=== PATIENT | male | born 1960 | race Caucasian/White ===

== ENCOUNTER → 2018-02-27 07:32 | Outpatient (CLI) | payer OTHER, SELFPAY ==
[2018-02-27 08:31] LABS: Add Manual Diff / Slide Review NO; Basophils Percent Auto 1.8 % (0-2); Eosinophils Percent Auto 13.1 % (2-4); Hematocrit 43.8 % (41-53); Hemoglobin 15.1 g/dL (13.5-17.5); Lymphocytes Percent Auto 30.2 % (25-40); Mean Corpuscular HGB Conc 34.5 % (30-36); Mean Corpuscular Hemoglobin 31.9 PG (26-34); Mean Corpuscular Volume 92.4 fL (80-100); Monocytes Percent Auto 11.3 % (3-14); Neutrophils Absolute Auto 2800 /uL (3000-5900); Neutrophils Percent Auto 43.6 % (50-75); Platelet Count 278 X10^3/uL (150-400); Red Blood Cell Count 4.74 X10^6/uL (4.5-5.9); White Blood Cell Count 6.4 X10^3/uL (4.5-11.0)
[2018-02-27 09:00] LABS: Alanine Aminotransferase 32 IU/L (21-72); Albumin 4.3 g/dL (3.5-5.0); Albumin Globulin Ratio 1.4 (1.0-2.8); Alkaline Phosphatase 52 U/L (38-126); Aspartate Aminotransferase 28 IU/L (17-59); BUN Creatinine Ratio 27.8 (6-22); Bilirubin Total 0.7 mg/dL (0.2-1.3); Blood Urea Nitrogen 25 mg/dL (9-20); Calcium 9.1 mg/dL (8.4-10.2); Carbon Dioxide 27 mmol/L (22-32); Chloride 103 mmol/L (98-107); Cholesterol 189 mg/dL (140-199); Estimated Glomerular Filt Rate > 60.0 mL/min (>60); Glucose 93 mg/dL (70-100); HDL Cholesterol 87 mg/dL (40-60); HEMOLYSIS < 15 (0-50); LDL Cholesterol Calculated 87 mg/dL (<100); Potassium 3.6 mmol/L (3.4-5.1); Sodium 142 mmol/L (137-145); Total Protein 7.3 g/dL (6.3-8.2); Triglycerides 77 mg/dL (35-150)
[2018-02-27 09:23] LABS: Prostate Specific Antigen Scrn 1.58 ng/mL (0.1-4.0)
== END ==
PROVIDERS: PCP Family Medicine; Visit Provider Nurse Practitioner Family
DX: E78.5 Hyperlipidemia, unspecified (principal); Z00.00 Encounter for general adult medical examination without abnormal findings
CPT/HCPCS: 36415; 80053; 80061; 85025; G0103

== ENCOUNTER → 2018-04-22 08:18 | Outpatient (CLI) | payer OTHER, SELFPAY ==
[2018-04-22 09:54] LABS: Add Manual Diff / Slide Review NO; Basophils Percent Auto 1.3 % (0-2); Eosinophils Percent Auto 11.6 % (2-4); Hematocrit 45.4 % (41-53); Hemoglobin 15.7 g/dL (13.5-17.5); Lymphocytes Percent Auto 25.1 % (25-40); Mean Corpuscular HGB Conc 34.5 % (30-36); Mean Corpuscular Hemoglobin 31.6 PG (26-34); Mean Corpuscular Volume 91.6 fL (80-100); Neutrophils Absolute Auto 3500 /uL (3000-5900); Platelet Count 295 X10^3/uL (150-400); Red Blood Cell Count 4.96 X10^6/uL (4.5-5.9); Red Cell Distribution Width 12.6 % (11.6-14.8); White Blood Cell Count 6.8 X10^3/uL (4.5-11.0)
[2018-04-22 10:21] LABS: Blood Urea Nitrogen 24 mg/dL (9-20); Calcium 9.5 mg/dL (8.4-10.2); Carbon Dioxide 27 mmol/L (22-32); Chloride 101 mmol/L (98-107); Estimated Glomerular Filt Rate > 60.0 mL/min (>60); Glucose 140 mg/dL (70-100); HEMOLYSIS < 15 (0-50); Sodium 139 mmol/L (137-145)
== END ==
PROVIDERS: PCP Family Medicine; Visit Provider Orthopaedic Surgery Orthopaedic Surgery of the Spine
DX: Z01.818 Encounter for other preprocedural examination (principal); M48.062 Spinal stenosis, lumbar region with neurogenic claudication
CPT/HCPCS: 36415; 80048; 85025; 93005; 93010

== ENCOUNTER 2018-04-25 16:42 | Emergency (ER) | payer OTHER, SELFPAY ==
[2018-04-25] VITALS (14 sets, daily range): BP systolic 124–190; BP diastolic 76–108; PULSE 51–92; RESP 13–20; TEMP 37.4; O2SAT 96–100
--- NOTE | 2018-04-25 17:25 | DI.RAD.S_ITS ---
PROCEDURE: XR CHEST 1V INDICATIONS: chest pain TECHNIQUE: One view of the chest was acquired. COMPARISON: None. FINDINGS: Surgical changes and devices: None. Lungs and pleura: No pleural effusions or pneumothorax. Lungs are clear. Mediastinum: Mildly tortuous thoracic aorta is seen. Cardiac silhouette is enlarged. Bones and chest wall: No suspicious bony lesions. Overlying soft tissues appear unremarkable. IMPRESSION: No acute cardiopulmonary pathology. Dictated by: Ajay Luque M.D. on 04/25/2018 at 17:52 Approved by: Ajay Luque M.D. on 04/25/2018 at 17:52
[2018-04-25] MEDS: NITROGLYCERIN 0.4 MG SL TAB SL ×3 (18:00→18:24)
[2018-04-25 18:04] LABS: Add Manual Diff / Slide Review NO; Eosinophils Percent Auto 5.8 % (2-4); Hematocrit 43.6 % (41-53); Hemoglobin 15.1 g/dL (13.5-17.5); Lymphocytes Percent Auto 27.9 % (25-40); Mean Corpuscular HGB Conc 34.6 % (30-36); Mean Corpuscular Hemoglobin 31.9 PG (26-34); Mean Corpuscular Volume 92.3 fL (80-100); Monocytes Percent Auto 10.4 % (3-14); Neutrophils Absolute Auto 4400 /uL (3000-5900); Neutrophils Percent Auto 54.9 % (50-75); Platelet Count 273 X10^3/uL (150-400); Red Blood Cell Count 4.72 X10^6/uL (4.5-5.9); Red Cell Distribution Width 12.4 % (11.6-14.8)
[2018-04-25] MEDS: ASPIRIN 81 MG TAB 324 MG PO (18:08)
[2018-04-25 18:09] LABS: INR 1.1 (0.9-1.3); Prothrombin Time 11.5 SECONDS (10.1-12.7)
[2018-04-25 18:12] LABS: PTT Partial Thromboplastin Tim 29 SECONDS (26.4-36.2)
[2018-04-25 18:15] LABS: Alanine Aminotransferase 29 IU/L (21-72); Albumin 4.1 g/dL (3.5-5.0); Albumin Globulin Ratio 1.5 (1.0-2.8); Alkaline Phosphatase 52 U/L (38-126); Aspartate Aminotransferase 25 IU/L (17-59); Bilirubin Total 0.3 mg/dL (0.2-1.3); Blood Urea Nitrogen 27 mg/dL (9-20); Calcium 9.3 mg/dL (8.4-10.2); Carbon Dioxide 28 mmol/L (22-32); Chloride 106 mmol/L (98-107); Creatine Kinase 72 U/L (55-170); Estimated Glomerular Filt Rate > 60.0 mL/min (>60); Globulin 2.7 g/dL (1.7-4.1); Glucose 83 mg/dL (70-100); HEMOLYSIS < 15 (0-50); Lipase 79 U/L (23-300); Potassium 3.6 mmol/L (3.4-5.1); Sodium 141 mmol/L (137-145); Total Protein 6.8 g/dL (6.3-8.2)
[2018-04-25 18:26] LABS: Troponin I 0.017 ng/mL (0.01-0.034)
[2018-04-25] MEDS: ACETAMINOPHEN 325 MG TABLET 975 MG PO (18:38)
[2018-04-25 21:11] LABS: Troponin I 0.019 ng/mL (0.01-0.034)
--- NOTE | 2018-04-26 04:31 | ED_ITS ---
HPI - Chest Pain General Chief Complaint: Chest Pain Stated Complaint: CHEST PAIN Time Seen by Provider: 04/25/18 17:29 Source: patient and family Mode of arrival: ambulatory Limitations: no limitations History of Present Illness HPI narrative: 57-year-old male with history of essential hypertension on multiple medications presents to the emergency department with his and a chief complaint of chest pressure which has been present since this morning. He denies provocation, palliation or radiation of the discomfort. He denies associated symptoms such as dizziness, weakness, lightheadedness or shortness of breath. He denies nausea, vomiting or diaphoresis. Upon arrival his blood pressure was quite elevated and just yesterday he had alterations in his medications by his primary care provider. He has an upcoming elective surgery on his back went to his primary care office for medical clearance and it was noted he had a heart rate in the 40s and EKG suggesting first-degree block. He was taken off metoprolol placed on the new medication regimen including chlorthalidone, amlodipine, and lisinopril. MD complaint: chest pain Onset (ago): hour(s) Duration: intermittent Pain location: left chest Severity: mild Quality: tightness and sharp Pain radiation: none Relieving factors: nothing Exacerbating factors: nothing Treatments prior to arrival chest pain: none Related Data Home Medications Medication Instructions Recorded Confirmed CA PANTOTHENATE/FOLIC ACID/VIT 1 tab PO QDAY #0 03/11/12 04/25/18 (MULTIVITAMIN) CALCIUM CARBONATE (Calcium 500 mg PO #0 03/11/12 04/24/18 Carbonate) CHOLECALCIFEROL (VITAMIN D3) 400 iu PO #0 03/11/12 04/24/18 (Vitamin D3) CYANOCOBALAMIN (VITAMIN B-12) 1 tab PO #0 03/11/12 04/24/18 (Vitamin B-12) Fish Oil (#FISH OIL) 1 iu PO #0 03/11/12 04/24/18 Homeopathic Substance (#ECHINACEA 1 tab PO #0 03/11/12 04/24/18 ANG) acyclovir [Zovirax] 400 mg PO TID PRN 04/25/18 04/25/18 cetirizine 10 mg PO QDAY PRN 04/25/18 04/25/18 Previous Rx's Medication Instructions Recorded celecoxib 200 mg capsule 200 mg PO QDAY #90 cap 03/04/18 ketoconazole 2 % topical cream 1 applictn TOP BID #30 gram 03/04/18 lisinopril 20 mg tablet 20 mg PO BID #180 tab 03/04/18 amlodipine 10 mg tablet 10 mg PO DAILY #30 tab 04/24/18 chlorthalidone 25 mg tablet 25 mg PO DAILY #30 tab 04/24/18 Allergies Allergy/AdvReac Type Severity Reaction Status Date / Time gabapentin AdvReac Severe States Verified 04/24/18 15:00 made him homicidal Review of Systems Review of Systems All systems reviewed & are unremarkable except as noted in HPI and below Constitutional Denies chills, Denies fever(s), Denies lethargy and Denies weakness Eyes Denies change in vision, Denies eye discharge, Denies irritation and Denies loss of vision ENT Ears, Nose, Mouth, and Throat: Denies change in voice, Denies neck pain and Denies sore throat Cardiovascular Reports chest pain, Denies irregular heart rhythm, Denies lightheadedness, Denies palpitations, Denies dyspnea, Denies dyspnea on exertion and Denies orthopnea Respiratory Denies cough, Denies dyspnea, Denies dyspnea on exertion and Denies wheezing Gastrointestinal Gastrointestinal: Denies abdominal pain, Denies change in bowel habits, Denies diarrhea, Denies nausea and Denies vomiting Genitourinary Denies hematuria, Denies flank pain, Denies urinary incontinence and Denies urinary urgency Musculoskeletal Denies neck pain Integumentary/Breasts Denies pruritus, Denies erythema, Denies rash and Denies wounds Neurologic Denies confusion, Denies loss of vision and Denies weakness Psychiatric Denies anxiety, Denies confusion, Denies depression, Denies homicidal ideation and Denies suicidal ideation Endocrine Denies palpitations Hematologic/Lymphatic Denies easy bruising Allergic/Immunologic Denies wheezing PFSH Medical History Hyperlipidemia (Chronic) Hypertension (Chronic) Radicular low back pain (Chronic) Surgical History History of gastric bypass (Resolved 2005) Social History Smoking Status: Never smoker Exam Initial Vital Signs Initial Vital Signs: Vital Signs Temperature 99.4 F 04/25/18 17:02 Pulse Rate 60 04/25/18 17:02 Respiratory Rate 18 04/25/18 17:02 Blood Pressure 156/81 H 04/25/18 17:02 Pulse Oximetry 98 04/25/18 17:02 Const General: cooperative and well developed Nutritional Appearance: well nourished Orientation: alert, awake, oriented x3 and not confused [facility] Head: normocephalic and atraumatic Ears: external ears normal and TM's normal bilaterally Nose: external nose normal and No nasal discharge Face and sinus: sinuses nontender, face symmetric, no sinus tenderness and No dry mucous membranes Mouth: oral mucosae normal and moist mucous membranes Teeth and gingiva: dentition normal Throat: tonsils normal and uvula midline Eyes General: appearance normal, both eyes and all related structures Eyelids: eyelids normal Conjunctivae: conjunctivae normal Sclera: sclerae normal Pupils: PERRL EOM: EOM intact bilaterally Neck Neck: normal visual inspection, trachea midline, No lymphadenopathy, No midline deformity and No JVD Lymphatic: No lymphedema Chest Chest: normal inspection of the chest Resp Effort & Inspection: normal respiratory effort, able to speak in complete sentences, no respiratory distress and no use of accessory muscles Auscultation: clear to auscultation bilaterally, no rales, no rhonchi and no wheezes Cardio Rate: regular rate Rhythm: regular rhythm Heart Sounds: no click, no gallops, no murmurs and no rubs Pulses: normal peripheral pulses GI Inspection: non-distended Palpation: soft, no hepatosplenomegaly, No guarding, No pulsatile mass and No tender Auscultation: normal bowel sounds Back/Spine/Pelvis Back: No CVA tenderness Cervical Spine: cervical ROM normal and No pain with cervical ROM Thoracic/Lumbar Spine: thoracic and lumbar spine normal to inspection Skin General: no rashes or lesions noted, No jaundice and No petechiae Neuro General: alert, oriented x3, gait normal and no focal motor deficits Speech: speech normal Extrem General: full ROM, no clubbing, cyanosis or edema, no pedal edema and no calf tenderness Psych Appearance: well kempt Mental Status: mental status grossly normal Attitude: cooperative Thought Content: normal and suicidality Judgment: judgment good Course Orders Ordered: ED Orders 04/25/18 20:37 Troponin I Stat Discontinued Medications Acetaminophen (Tylenol) 975 mg PO NOW ONE Stop: 04/25/18 18:38 Last Admin: 04/25/18 18:38 Dose: 975 mg Aspirin (Aspirin Chew) 324 mg PO NOW ONE Stop: 04/25/18 17:26 Last Admin: 04/25/18 18:08 Dose: 324 mg Nitroglycerin (Nitrostat) 0.4 mg SL [id number] PRN PRN Reason: Chest Pain Last Admin: 04/25/18 18:24 Dose: 0.4 mg Admin: 04/25/18 18:12 Dose: 0.4 mg Admin: 04/25/18 18:00 Dose: 0.4 mg Vital Signs - 8 hr 04/25/18 21:00 04/25/18 21:35 04/25/18 22:05 Pulse Rate 60 51 L 92 H Respiratory Rate 15 15 14 Blood Pressure Blood Pressure [Left Arm] 124/89 H 152/94 H 150/90 H Pulse Oximetry 99 99 96 04/25/18 22:15 Pulse Rate 61 Respiratory Rate 18 Blood Pressure 150/90 H Blood Pressure [Left Arm] Pulse Oximetry 98 MDM - Chest Pain Differential Diagnosis Likely pneumothorax, stable angina, unstable angina pectoris, atypical chest pain, st elevation myocardial infarction, costochondritis and biliary colic Medical Records Data Attestation: I reviewed the patient's medical records. Lab Data Attestation: I reviewed the patient's lab results. Result diagrams: 04/25/18 17:50 04/25/18 17:50 Lab Results 04/25/18 04/25/18 04/25/18 Range/Units 17:50 17:50 17:50 WBC 8.0 (4.5-11.0) X10^3/uL RBC 4.72 (4.5-5.9) X10^6/uL Hgb 15.1 (13.5-17.5) g/dL Hct 43.6 (41-53) % MCV 92.3 (80-100) fL MCH 31.9 (26-34) PG MCHC 34.6 (30-36) % RDW 12.4 (11.6-14.8) % Plt Count 273 (150-400) X10^3/uL Neut % (Auto) 54.9 (50-75) % Lymph % (Auto) 27.9 (25-40) % [place] % (Auto) 10.4 (3-14) % Eos % (Auto) 5.8 H (2-4) % Baso % (Auto) 1.0 (0-2) % Neut # (Auto) 4400 (0144-2382) /uL PT 11.5 (10.1-12.7) SECONDS INR 1.1 (0.9-1.3) APTT 29 (26.4-36.2) SECONDS Sodium 141 (137-145) mmol/L Potassium 3.6 (3.4-5.1) mmol/L Chloride 106 (98-107) mmol/L Carbon Dioxide 28 (22-32) mmol/L BUN 27 H (9-20) mg/dL Creatinine 1.00 (0.66-1.25) mg/dL Estimated GFR > 60.0 (>60) mL/min BUN/Creatinine Ratio 27.0 H (6-22) Glucose 83 (70-100) mg/dL Calcium 9.3 (8.4-10.2) mg/dL Total Bilirubin 0.3 (0.2-1.3) mg/dL AST 25 (17-59) IU/L ALT 29 (21-72) IU/L Alkaline Phosphatase 52 (38-126) U/L Total Creatine Kinase 72 (55-170) U/L Troponin I 0.017 (0.01-0.034) ng/mL Total Protein 6.8 (6.3-8.2) g/dL Albumin 4.1 (3.5-5.0) g/dL Globulin 2.7 (1.7-4.1) g/dL Albumin/Globulin Ratio 1.5 (1.0-2.8) Lipase 79 (23-300) U/L 04/25/18 Range/Units 20:37 WBC (4.5-11.0) X10^3/uL RBC (4.5-5.9) X10^6/uL Hgb (13.5-17.5) g/dL Hct (41-53) % MCV (80-100) fL MCH (26-34) PG MCHC (30-36) % RDW (11.6-14.8) % Plt Count (150-400) X10^3/uL Neut % (Auto) (50-75) % Lymph % (Auto) (25-40) % [place] % (Auto) (3-14) % Eos % (Auto) (2-4) % Baso % (Auto) (0-2) % Neut # (Auto) (5768-8870) /uL PT (10.1-12.7) SECONDS INR (0.9-1.3) APTT (26.4-36.2) SECONDS Sodium (137-145) mmol/L Potassium (3.4-5.1) mmol/L Chloride (98-107) mmol/L Carbon Dioxide (22-32) mmol/L BUN (9-20) mg/dL Creatinine (0.66-1.25) mg/dL Estimated GFR (>60) mL/min BUN/Creatinine Ratio (6-22) Glucose (70-100) mg/dL Calcium (8.4-10.2) mg/dL Total Bilirubin (0.2-1.3) mg/dL AST (17-59) IU/L ALT (21-72) IU/L Alkaline Phosphatase (38-126) U/L Total Creatine Kinase (55-170) U/L Troponin I 0.019 (0.01-0.034) ng/mL Total Protein (6.3-8.2) g/dL Albumin (3.5-5.0) g/dL Globulin (1.7-4.1) g/dL Albumin/Globulin Ratio (1.0-2.8) Lipase (23-300) U/L Imaging Data Chest x-ray: Radiologist's impression: PROCEDURE: XR CHEST 1V INDICATIONS: chest pain TECHNIQUE: One view of the chest was acquired. COMPARISON: None. FINDINGS: Surgical changes and devices: None. Lungs and pleura: No pleural effusions or pneumothorax. Lungs are clear. Mediastinum: Mildly tortuous thoracic aorta is seen. Cardiac silhouette is enlarged. Bones and chest wall: No suspicious bony lesions. Overlying soft tissues appear unremarkable. IMPRESSION: No acute cardiopulmonary pathology. Dictated by: Ajay Luque M.D. on 04/25/2018 at 17:52 Approved by: Ajay Luque M.D. on 04/25/2018 at 17:52 ECG Data Attestation: I personally reviewed and interpreted this ECG as follows: Prior ECG tracings: not available for review Interpretation: Normal sinus rhythm without signs of ectopy or ischemia as evidence by ST segmental changes or IL interval changes. No T-wave inversions MDM Narrative Medical decision making narrative: Patient is had chest pain over the course of the day and has multiple unchanged EKGs and troponin negative x2. He has been pain free for a few hours, since his blood pressure had normalized. Discharge Plan Departure Patient Disposition: Home Clinical Impression: Atypical chest pain, Hypertension Discharge Date/Time: 04/25/18 22:16 Interventions: ED Discharge Assessment Last Done: 04/25/18 22:15 Instructions: DI for Atypical Chest Pain Activity Restrictions/Additional Instructions: *You have been diagnosed with [ hypertension and atypical chest ] *What to do: *Take medications as directed, however please increase your Lisinopril to 40mg by mouth twice daily *Follow up with your primary care provider in 2-3 days, call for an appointment. Let them know you were seen in the Emergency Department and that we ask that you be seen in follow up *Return to ER if you should have any new, worsening or concerning symptoms Prescriptions: No Action CA PANTOTHENATE/FOLIC ACID/VIT (MULTIVITAMIN) 1 tab PO QDAY Qty: 0 RF: 0 Fish Oil (#FISH OIL) 1 iu PO Qty: 0 RF: 0 CALCIUM CARBONATE (Calcium Carbonate) 500 mg PO Qty: 0 RF: 0 CHOLECALCIFEROL (VITAMIN D3) (Vitamin D3) 400 iu PO Qty: 0 RF: 0 CYANOCOBALAMIN (VITAMIN B-12) (Vitamin B-12) 1 tab PO Qty: 0 RF: 0 Homeopathic Substance (#ECHINACEA ANG) 1 tab PO Qty: 0 RF: 0 celecoxib [Celebrex] 200 mg capsule 200 mg PO QDAY Qty: 90 RF: 1 lisinopril [Zestril] 20 mg tablet 20 mg PO BID Qty: 180 RF: 1 ketoconazole 2 % cream 1 applictn TOP BID Qty: 30 RF: 1 chlorthalidone 25 mg tablet 25 mg PO DAILY Qty: 30 RF: 0 amlodipine 10 mg tablet 10 mg PO DAILY Qty: 30 RF: 0 cetirizine 10 mg tablet 10 mg PO QDAY PRN (Reason: allergies) RF: 0 acyclovir [Zovirax] 400 mg tablet 400 mg PO TID PRN (Reason: herpes) RF: 0 Referrals: Cousins,Denisa, MD [Primary Care Provider] -
== END 2018-04-25 22:16 | disposition home or self-care (01) ==
PROVIDERS: Emergency Medicine; Emergency Provider Emergency Medicine; Family Provider Family Medicine; PCP Family Medicine
DX: R07.89 Other chest pain (principal); I10 Essential (primary) hypertension
CPT/HCPCS: 36591; 71045; 80053; 82550; 82553; 83690; 84484; 85025; 85610; 85730; 93005; 93010; 99283; 99285

== ENCOUNTER → 2018-05-27 08:08 | Outpatient (CLI) | payer OTHER, SELFPAY ==
--- NOTE | 2018-05-27 08:09 | DI.ECHO.S_ITS ---
[facility]---------+ [facility] +---------+ : : [address] : : : : [id number] : : : : Phone: [phone]+ Echocardiogram Report + + :Name: PANTERA MORENO Study Date: 05/27/2018 Height: 71 in : :[facility] Exam Location: IS Weight: 235 lb : : Gender: Male BSA: 2.3 m2 : :: 1960 Age: 57 yrs BP: 138/92 mmHg: :Reason For Study: Bradycardia : : Performed By: Joana Turpin : + + Interpretation Summary 1) Normal left ventricular thickness, size, wall motion, and systoilc function (EF 60-65%). 2) Mildly enlarged right ventricle with normal function. 3) There is mild to moderate aortic regurgitation. 4) The aortic root is mildly dilated at 4.2cm. The aortic arch is mildly enlarged at 4.0cm. 5) No prior Echo available for comparison. Procedure: A two-dimensional transthoracic echocardiogram with color flow and Doppler was performed. The study quality was technically adequate. There is no prior echocardiogram noted for this patient. The patient was in normal sinus rhythm during the exam. The patient had frequent PACs during the exam. Left Ventricle: There is normal left ventricular wall thickness. Proximal septal thickening is noted. The left ventricle is normal in size. The ejection fraction is estimated to be 60-65%. Right Ventricle: The right ventricle is mildly dilated. The right ventricular systolic function is normal. Atria: The left atrium is severely dilated. The right atrium is mild to moderately dilated. The interatrial septum is intact with no evidence for an atrial septal defect. Mitral Valve: The mitral valve leaflets appear mildly thickened, but open well. The mitral valve leaflets are slightly calcified. There is mild mitral annular calcification. Redundant elongated chordae are noted. There is mild mitral regurgitation. Aortic Valve: The aortic valve is trileaflet. The aortic valve opens well. There is no aortic valve stenosis. There is mild to moderate aortic regurgitation. Tricuspid Valve: The tricuspid valve is normal in structure and function. There is mild tricuspid regurgitation. The right ventricular systolic pressure is estimated at 27 mmHg assuming a right atrial pressure of 3 mm Hg. Pulmonic Valve: The pulmonic valve is not well seen, but is grossly normal. There is a trace or physiologic amount of pulmonic regurgitation. Great Vessels: The aortic root is mildly dilated. The ascending aorta could not be visualized. The aortic arch is mildly enlarged. The IVC is of normal diameter and collapses greater than 50% with a sniff. This suggests a low right atrial pressure of 3 mm Hg. Pericardium/ Pleura There is an anterior echo-free space consistent with a fat pad. There is no pericardial effusion. There is no pleural effusion. MMode/2D Measurements & Calculations LVIDd: 4.9 cm LVOT diam: 2.9 cm LVIDs: 3.3 cm Ao root diam: 4.2 cm FS: 32.5 % Ao Arch Diam (Prox Trans): 4.0 cm IVSd: 0.96 cm LVPWd: 1.1 cm LV winn. diameter/BSA (cm/m^2): 2.1 LV sys. diameter/BSA (cm/m^2): 1.5 LA A2 area: 30.3 cm2 RA long axis: 5.4 cm LA A4 area: 30.4 cm2 RA area: 22.4 cm2 LA length (vol): 5.6 cm RA vol: 79.0 ml LA vol: 139.6 ml RA : 35.0 ml/m2 LA vol index: 61.8 ml/m2 IVC diam: 1.6 cm TAPSE: 3.0 cm Doppler Measurements & Calculations Ao V2 max: 154.5 cm/sec LVOT Max García: 150.8 cm/sec Ao V2 mean: 117.9 cm/sec LV V1 max P.1 mmHg Ao max P.5 mmHg LV V1 VTI: 30.0 cm Ao mean P.0 mmHg RONAN(I,D): 5.6 cm2 Ao V2 VTI: 35.3 cm RONAN(V,D): 6.4 cm2 sev ratio: 0.85 RONAN indexed to BSA (cm^2/m^2): 2.5 MV E max garcía: 61.4 cm/sec TR max garcía: 245.2 cm/sec MV A max garcía: 57.8 cm/sec TR max P.1 mmHg MV E/A: 1.1 PA V2 max: 85.7 cm/sec Med Peak E' García: 6.2 cm/sec PA V2 mean: 62.6 cm/sec E/E' med: 9.9 PA mean P.7 mmHg Lat Peak E' García: 10.4 cm/sec PA pr(Accel): 29.1 mmHg E/E' lat: 5.9 E/e' average: 7.9 MV dec time: 0.17 sec Reading Physician:12:12 PM
== END ==
PROVIDERS: PCP Registered Nurse; Visit Provider Registered Nurse
DX: I08.3 Combined rheumatic disorders of mitral, aortic and tricuspid valves (principal); R00.1 Bradycardia, unspecified; I44.30 Unspecified atrioventricular block; I10 Essential (primary) hypertension
CPT/HCPCS: 93306

== ENCOUNTER → 2018-07-08 10:02 | Outpatient (CLI) | payer OTHER, SELFPAY ==
[2018-07-08 11:11] LABS: Add Manual Diff / Slide Review NO; Basophils Percent Auto 1.1 % (0-2); Eosinophils Percent Auto 8.1 % (2-4); Hemoglobin 14.9 g/dL (13.5-17.5); Lymphocytes Percent Auto 28.9 % (25-40); Mean Corpuscular HGB Conc 33.9 % (30-36); Mean Corpuscular Hemoglobin 31.7 PG (26-34); Mean Corpuscular Volume 93.3 fL (80-100); Monocytes Percent Auto 13.3 % (3-14); Neutrophils Absolute Auto 3500 /uL (3000-5900); Neutrophils Percent Auto 48.6 % (50-75); Platelet Count 262 X10^3/uL (150-400); Red Blood Cell Count 4.72 X10^6/uL (4.5-5.9); Red Cell Distribution Width 13.1 % (11.6-14.8); White Blood Cell Count 7.2 X10^3/uL (4.5-11.0)
[2018-07-08 11:32] LABS: Blood Urea Nitrogen 26 mg/dL (9-20); Calcium 9.3 mg/dL (8.4-10.2); Carbon Dioxide 28 mmol/L (22-32); Chloride 102 mmol/L (98-107); Estimated Glomerular Filt Rate > 60.0 mL/min (>60); Glucose 69 mg/dL (70-100); HEMOLYSIS < 15 (0-50); Sodium 141 mmol/L (137-145)
== END ==
PROVIDERS: PCP Registered Nurse; Visit Provider Orthopaedic Surgery Orthopaedic Surgery of the Spine
DX: Z01.818 Encounter for other preprocedural examination (principal)
CPT/HCPCS: 36415; 80048; 85025

== ENCOUNTER 2018-07-09 07:28 | Inpatient (IN) | payer OTHER, SELFPAY ==
[2018-06-25 09:19] VITALS: BMI 31.4
[2018-07-09] VITALS (17 sets, daily range): BP systolic 99–162; BP diastolic 56–95; PULSE 50–81; RESP 10–20; TEMP 36.3–36.9; O2SAT 91–100; BMI 30.9
[2018-07-09] MEDS: LACTATED RINGERS 1,000 ML 42 ML IV ×3 (08:00→13:36)
--- NOTE | 2018-07-09 08:50 | PM.PREOP ---
Pre-operative Note Interval Note Pre-op Check: Yes History & Physical Reviewed by Physician, Yes Exam Performed and Yes History & Physical exam performed today by Physician Changes: No
[2018-07-09] MEDS: CEFAZOLIN 2 GM/100 ML FROZ.PIGGY IV ×2 (09:04→17:13)
[2018-07-09] MEDS: BUPIVACAINE 0.25% W/ EPI VIAL 50 ML INJ (09:30)
--- NOTE | 2018-07-09 09:37 | SUR.OPER ---
Prone on spine table, head in foam head support, padded chest and pelvic supports, gel pad at knees, lower legs supported by pillows; nipples, genitalia and toes free of pressure, arms secured on foam padded arm boards at <90 degrees abduction. Tape over blanket at thigh secured to table.
[2018-07-09] MEDS: ACETAMINOPHEN IV 1,000 MG/100 ML VIAL 400 MG IV (10:59)
[2018-07-09] MEDS: BUPIVACAINE LIPOSOME 266 MG/20 ML VIAL INJ (11:26)
--- NOTE | 2018-07-09 12:22 | DI.RAD.S_ITS ---
PROCEDURE: XR LUMBAR SPINE 2-3V INDICATIONS: L4-5, L5-S1 TLIF TECHNIQUE: 2 views of the lumbar spine were acquired. COMPARISON: None. FINDINGS: Bones: The study is immediate postoperative after posterior fusion by transverse pedicle screws and vertical fixation rods crossing from L4-S1, with interbody disc cage prosthesis at the 2 intervening disc levels in normal position. Soft tissues: Overlying bowel gas pattern is normal. No suspicious soft tissue calcifications. IMPRESSION: Normal anatomic alignment established after bilateral posterior fusion procedure from L4-S1. Dictated by: Mani Saravia M.D. on 07/09/2018 at 12:58 Approved by: Mani Saravia M.D. on 07/09/2018 at 12:59
--- NOTE | 2018-07-09 12:22 | P.OP_ITS ---
Operative Date/Time/Diagnoses Date of procedure: 07/09/18 Time of procedure: 09:18 Pre-op diagnosis: 1. L3-4, L4-5, L5-S1 spinal stenosis 2. L3-4, L4-5, L5-S1 spondylosis with radiculopathy Post-op diagnosis: same Procedure & Clinicians Procedure: 1. L4-5, L5-S1 Postero-lateral and posterior interbody fusion 2. L4-5, L5-S1 interbody cage placement. 3. L4-5, L5-S1 decompressive laminectomy with bilateral facetecomies 4. L4-5, L5-S1 Posterior segmental instrumentation 5. left L3-4 hemilaminectomy 6. [place] of bone marrow from iliac crest 7. Utilization of microsurgical technique and operating microscope Same procedure as scheduled: Yes Indications: Patient has been having chronic back pain and worsening lumbar radiculopathy. Patient failed multiple conservative management with worsening pain weakness and numbness in her lower extremity. Patient has been having difficulty performing activity of daily living. After discussing risks benefits of treatment options, patient elected proceed with surgery. Surgeon: Melissa Woodward Assistant Hvac Mechanic: Marce Pan Click Yes if Unassisted: No Anesthesia Type: General Operative Notes Closure Type: primary Specimen(s): none sent Implants & Drains: Globus revolve screws, Rise cages Applied: catheter Estimated Blood Loss (mL): 100 Blood products transfused: none Procedure in detail: Patient was seen in the preoperative area. Risks and benefits of the surgery was discussed with the patient. Informed consent was obtained from the patient and placed in the chart. Surgical site was marked. Patient was taken to the operative room. General anesthesia was administered. Prophylactic antibiotic was given to the patient less than 30 min before the incision was made. Patient was placed into a prone position on the [place] table. Patient's back was then prepped and draped in the sterile fashion. Time- out was performed at this time. Using AP and lateral C-arm imaging the interval between L4-S1 was identified and marked on patient's back. A 2 inch incision 2 in from midline was made on the left side first. The fascia was incised in line with skin incision. Globus MARS retractors was placed inside the incision and docked onto the L4 and L5 lamina. Using microsurgical technique and operating microscope, a L4 and L5 laminectomy and L4-5 L5-S1 facetectomy was performed using a Kerrison rongeur. The disc space at L4-5, L5-S1 was identified. And a total diskectomy was performed at L4-5, L5-S1 level. The endplates were decorticated using a rasp and shaver. The total diskectomy and decortication was performed at L4-5, L5- S1 level in order to to accomplish a L4-5, L5-S1 fusion. The local bone from the laminectomy and facetectomy was saved for local bone grafting. After the total diskectomy and decortication was completed, Globus viacell bone graft material was combined with local bone that was harvested earlier. At this time , a separate skin is incision was made over the iliac crest. A Jamshidi needle was inserted into the iliac crest through a separate skin incision. 5 cc of bone marrow aspiration was obtained through the separate skin incision using a Jamshidi needle from the iliac crest. The bone marrow aspiration was combined with local bone and the via cell bone grafting material. The bone grafting material was placed into the L4-5, L5-S1 interbody space along with two cages, one expandable cage at each level. The cages were expanded to their maximum height using the torque limiting screwdriver. At this time the MARS retractor was redirected over the L3 lamina. Using microsurgical technique and operating microscope, a L3-4 heminectomy was performed using the Kerrison rongeur. The ligamentum flavum was also resected at the side of the hemilaminectomy for further decompression of the epidural space. At this time a mirror image incision was made on the right side. The fascia was incised in line with the skin incision. Globus MARS retractor was inserted and docked onto the L4-5, L5-S1 posterolateral gutter. Using the power drill, posterior-lateral decortication was performed at L4-5, L5-S1 level until bleeding cortical bone was identified. The remaining bone grafting material was placed into the L4-5 L5-S1 posterior lateral gutter he order to accomplish posterolateral fusion at the L4-5 L5-S1 levels. Using the double C-arm technique, pedicle screws were placed into the L4, L5, S1 pedicles bilaterally. This was done by placing the Jamshidi needle into the pedicles, then placing the guidewires over the Jamshidi needle, and finally placing the cannulated screws over the guidewires bilaterally. After the pedicle screws were placed, 2 titanium rods was locked into the heads of the pedicle screws using locking caps and torque limiting screwdriver. Total 6 pedicles screws were placed. After all the hardware was placed, and confirmed with AP and lateral C-arm imaging, the wound was then irrigated with sterile normal saline and packed with Ray-Darek gauze for 3 min to accomplish hemostasis. After the gauze was removed the deep fascia was closed with #1 Vicryl suture. The subcutaneous layer was closed with 2-0 Vicryl. The skin was closed with skin edison. Patient tolerated the procedure well. There were no complications. Complications: none
[2018-07-09] MEDS: HYDROMORPHONE 2 MG INJ 0.5 MG IV ×3 (13:09→13:32)
[2018-07-09] MEDS: SODIUM CHLORIDE 0.9% 1,000 ML 100 ML IV (14:17)
[2018-07-09] MEDS: POLYVINYL ALCOHOL DROPS 1 DROPS EYE-BOTH ×2 (16:37→17:14)
--- NOTE | 2018-07-09 17:01 | PT.IPTN ---
Current Diagnoses Spondylolisthesis, lumbosacral region (07/09/18) Other spondylosis with radiculopathy, lumbar region (07/09/18) Surgery Performed Operation Date: 07/09/18 08:45 Actual Procedures p L3-4 Hemilaminectomy, L4-5, L5-S1 TLIF w/Posterior Instrumentation(Not Applicable) - Melissa Woodward MD Physical Therapy Treatment Note M3 PT-IP Subjective Start: 07/09/18 16:57 Freq: NEEDED Status: Active Protocol: Document 07/09/18 16:57 EA (Rec: 07/09/18 17:00 EA [id number]) Subjective Physical Therapy Visit Type Type Patient Refusal Notes At 1650, Pt refused to participate in PT evaluation as patient does not want to interrupt his meal. Pt agreeable to perform tomorrow a.m. Nurse in-charged informed about the refusal.
[2018-07-09] MEDS: OXYCODONE IR 5 MG TABLET 10 MG PO (17:13)
[2018-07-09] MEDS: ONDANSETRON 4 MG/2 ML INJ IV (17:19)
[2018-07-09] MEDS: HYDROMORPHONE 1 MG INJ 0.5 MG IV (20:11)
--- NOTE | 2018-07-09 21:12 | PC.NURSE ---
Ana shift note: Patient awake and alert, HR noted between 48-55, O2 sat at 98-99 on RA. Normotensive. No c/o dizziness, chest pain or SOB. Dr. Woodward notified regarding HR, obtained order for Tele monitor. Per patient his HR is normally in the low 50's, states is his baseline. Will continue to monitor closely.
[2018-07-10] VITALS (10 sets, daily range): BP systolic 119–148; BP diastolic 58–92; PULSE 52–75; RESP 17–24; TEMP 36.4–37.3; O2SAT 95–99
[2018-07-10] MEDS: HYDROMORPHONE 1 MG INJ 0.5 MG IV ×2 (00:42→08:24)
[2018-07-10] MEDS: SODIUM CHLORIDE 0.9% 1,000 ML 100 ML IV (00:43)
[2018-07-10] MEDS: CEFAZOLIN 2 GM/100 ML FROZ.PIGGY IV (00:44)
[2018-07-10] MEDS: OXYCODONE IR 5 MG TABLET 10 MG PO ×7 (01:39→23:54)
[2018-07-10 05:55] LABS: Hemoglobin 13.2 g/dL (13.5-17.5)
--- NOTE | 2018-07-10 07:36 | PM.PNPO.1 ---
Subjective Date Patient Seen: 07/10/18 Time Patient Seen: 07:20 Interval history: POD #1 status post L3-4 Hemilaminectomy, L4-5, L5-S1 TLIF w/Posterior Instrumentation with Dr. Woodward on 07/09/18. Patient is lying in bed comfortably without any signs of distress. Patient reports that his pain is manageable at this time on 10mg oxycodone. Patient refused PT yesterday. Patient denies any chest pain, SOB, nausea, vomiting, fever or chills. Padron intact. Exam Vital Signs (past 8 hours): - 07/09/18 23:50 07/10/18 03:29 Temperature 97.3 F L 97.5 F L Pulse Rate 61 54 L Respiratory Rate 18 18 Blood Pressure 135/71 124/58 L Pulse Oximetry 98 97 Oxygen Delivery Method Nasal Cannula Oxygen Flow Rate 0 Narrative Exam Narrative: Patient is AOx3. Patient seen bedside. Patient is lying in bed in no acute distress. Radial and dorsalis pedis pulses 2+ and symmetric. 5/5 muscle strength in dorsiflexion, plantarflexion and leak operator paraffin plant bilaterally. Sensation to light touch intact in LE bilaterally. Calfs are soft, compressible and non tender bilaterally. Lumbar dressing slightly intact, clean and dry. Padron intact. Objective Labs Result Diagrams: 07/10/18 05:30 Labs: Laboratory Results - last 24 hr 07/10/18 05:30 Hgb 13.2 L Hct 39.0 L Assessment & Plan Post-op Postoperative Procedures Operation Date: 07/09/18 08:45 Actual Procedures Side Surgeon p L3-4 Hemilaminectomy, L4-5, L5-S1 TLIF w/Posterior Instrumentation Not Applicable Melissa Woodward MD Postoperative day: 1 Postoperative plan: routine post-op care Postoperative plan narrative: Start mobilizing, ambulating and sitting in chair with PT. Continue pain management. Reinforce dressing. Likely to be discharged home in 1-2 days. D/C padron once patient is more mobile. Time Spent With Patient less than 15 minutes
--- NOTE | 2018-07-10 07:44 | P.PN_ITS ---
Subjective Date Patient Seen: 07/10/18 Time Patient Seen: 07:20 Interval history: POD #1 status post L3-4 Hemilaminectomy, L4-5, L5-S1 TLIF w/ Posterior Instrumentation with Dr. Woodward on 07/09/18. Patient is lying in bed comfortably without any signs of distress. Patient reports that his pain is manageable at this time on 10mg oxycodone. Patient refused PT yesterday. Patient denies any chest pain, SOB, nausea, vomiting, fever or chills. Padron intact. Exam Vital Signs (past 8 hours): - 07/09/18 23:50 07/10/18 03:29 Temperature 97.3 F L 97.5 F L Pulse Rate 61 54 L Respiratory Rate 18 18 Blood Pressure 135/71 124/58 L Pulse Oximetry 98 97 Oxygen Delivery Method Nasal Cannula Oxygen Flow Rate 0 Narrative Exam Narrative: Patient is AOx3. Patient seen bedside. Patient is lying in bed in no acute distress. Radial and dorsalis pedis pulses 2+ and symmetric. 5/5 muscle strength in dorsiflexion, plantarflexion and spout worker bilaterally. Sensation to light touch intact in LE bilaterally. Calfs are soft, compressible and non tender bilaterally. Lumbar dressing slightly intact, clean and dry. Padron intact. Objective Labs Result Diagrams: 07/10/18 05:30 Labs: Laboratory Results - last 24 hr 07/10/18 05:30 Hgb 13.2 L Hct 39.0 L Assessment & Plan Post-op Postoperative Procedures Operation Date: 07/09/18 08:45 Actual Procedures Side Surgeon p L3-4 Hemilaminectomy, L4-5, L5-S1 TLIF w/Posterior Instrumentation Not Applicable Melissa Woodward MD Postoperative day: 1 Postoperative plan: routine post-op care Postoperative plan narrative: Start mobilizing, ambulating and sitting in chair with PT. Continue pain management. Reinforce dressing. Likely to be discharged home in 1-2 days. D/C padron once patient is more mobile. Time Spent With Patient less than 15 minutes
[2018-07-10] MEDS: CALCIUM CARBONATE 500 MG TAB PO (09:07)
[2018-07-10] MEDS: DOCUSATE 100 MG CAPSULE PO ×2 (09:07→20:49)
[2018-07-10] MEDS: CHLORTHALIDONE 25 MG TABLET PO (09:07)
[2018-07-10] MEDS: FLECAINIDE 100 MG TABLET 50 MG PO ×2 (09:08→21:41)
[2018-07-10] MEDS: LOSARTAN 50 MG TABLET PO ×2 (09:09→20:49)
[2018-07-10] MEDS: METOPROLOL ER 25 MG TABLET PO (09:11)
[2018-07-10] MEDS: TAMSULOSIN 0.4 MG CAPSULE PO ×2 (09:12→20:48)
--- NOTE | 2018-07-10 10:07 | PT.IIE ---
Current Diagnoses Spondylolisthesis, lumbosacral region (07/09/18) Other spondylosis with radiculopathy, lumbar region (07/09/18) Surgery Performed Operation Date: 07/09/18 08:45 Actual Procedures p L3-4 Hemilaminectomy, L4-5, L5-S1 TLIF w/Posterior Instrumentation(Not Applicable) - Melissa Woodward MD Surgical History (Last Updated 06/25/18 @ 10:18 by Lona Jiménez RN) History of arthroplasty of both knees (Acute) S/P ankle ligament repair (Acute) History of gastric bypass (Resolved 2005) Medical History (Last Reviewed 07/09/18 @ 16:51 by Abel Castaneda, PT, [place]) Anxiety about health (Acute) Atypical chest pain (Acute) Back pain (Acute) First degree atrioventricular block (Acute) Hand, open wound except fingers, with tendon injury (Acute) History of migraine headaches (Acute) Hx of sleep apnea (Acute) Overactive bladder (Acute) PAC (premature atrial contraction) (Acute) Sciatica (Acute) Hyperlipidemia (Chronic) Hypertension (Chronic) Radicular low back pain (Chronic) Physical Therapy Inpatient Evaluation/Re-Eval M1 PT/OT-IP Prior Functional Status Start: 07/09/18 16:57 Freq: NEEDED Status: Active Protocol: Document 07/10/18 10:07 AB (Rec: 07/10/18 13:05 [id number]) Medical Review Prior Functional Status Medical History Reviewed Yes Communication able to make needs known Mobility and Gait pt stated that he is independent with all mobilities and ambulation without AD Social History Household Members spouse children Living Arrangements House Number of Floors (Floors) One Floor Number of Stairs To Enter/Railing? 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 M2 PT-IP Current Condition Start: 07/09/18 16:57 Freq: NEEDED Status: Active Protocol: Document 07/10/18 10:07 AB (Rec: 07/10/18 13:05 [id number]) Physical Therapy Current Condition Current Condition Evaluation Date 07/10/18 Treatment Diagnosis s/p L3-4, l4-5, L5S1 fusion/ lami; difficulty in walking Onset Date 07/09/18 Precautions Lumbar Precautions Log Roll No Twisting Limit Bending Lifting Restriction of 10 lbs Gait Belt above Incisional Area M3 PT-IP Subjective Start: 07/09/18 16:57 Freq: NEEDED Status: Active Protocol: Document 07/10/18 10:07 AB (Rec: 07/10/18 13:05 AB [id number]) Subjective Physical Therapy Visit Type Type Initial Evaluation Visit Start Time 10:07 Visit Stop Time 10:40 Total Visit Minutes 33 Number of COMMERCIAL LENDER Visits 0 Physical Therapy Visit Comments Patient Comments pt agreeable to do PT Therapy Pain Assessment Pain When Pain Assessed At Rest Location Back Intensity 6 Scale Used Numeric (1 - 10) Pain Management Techniques Apply Cold Re-positioning Timing of Activity with Medications M4 PT-IP Mobility and Gait Start: 07/09/18 16:57 Freq: NEEDED Status: Active Protocol: Document 07/10/18 10:07 AB (Rec: 07/10/18 13:05 AB [id number]) PT-Bed Mobility Assessment Rolling Type of Rolling Log Rolling Level of Assist Standby Assistance Supine to Sit Supine to Sit Standby Assistance Scooting Scooting to Edge of Bed Standby Assistance PT-Transfer Assessment Sit to and From Stand Sit to and from Stand Standby Assistance Use of Upper Extremities Equipment Transfer Assistive Device Gait Belt Front Wheeled Walker Orthotic/Prosthetic Devices or Brace: No Transfers Transfer Destination Chair Transfer Technique Stand Step Pivot Transfer Ability Level of Assist Standby Assistance Comments Mobility Comments requires cues to perform log roll bed mobilty and for sit to stand Gait Assessment Gait Gait Assistance Required: Standby Assistance Distance (Feet) 100 Able to Maintain Weight Bearing Status Yes During Gait Assistive Devices Assistive Device Gait Belt Front Wheeled Walker Orthotic/Prosthetic Devices or Brace: No Factors Limiting Gait Function Factors Limiting Gait Function Decreased Activity Tolerance Decreased Strength Limited Range of Motion Pain Poor Balance PT-Balance Assessment Sitting Balance and Reactions Static Sitting Balance Ability Good Dynamic Sitting Balance Ability Good Standing Balance and Reactions Static Standing Balance Ability Fair Dynamic Standing Balance Ability Fair Device Used FWW M5 PT-IP Objective Assessments Start: 07/09/18 16:57 Freq: NEEDED Status: Active Protocol: Document 07/10/18 10:07 AB (Rec: 07/10/18 13:05 AB [id number]) Orientation Orientation/Cognition Level of Alertness Alert Orientation Name Age Birthday Month Date Year Day of Week Place Situation Safety Awareness Understands Safety Issues Coordination Assessment Gross Coordination Gross Coordination WNL Sensation Assessment Sensation Gross Sensation WNL M6 PT-IP Treatment Start: 07/09/18 16:57 Freq: NEEDED Status: Active Protocol: Document 07/10/18 10:07 AB (Rec: 07/10/18 13:05 AB [id number]) Physical Therapy Treatment Education Education Provided Precautions Weight Bearing Status Post-Op Packet Safety M7 PT-IP Assessment and Plan Start: 07/09/18 16:57 Freq: NEEDED Status: Active Protocol: Document 07/10/18 10:07 AB (Rec: 07/10/18 13:05 AB [id number]) PT Summary Assessment and Plan Potential Rehabilitation Potential Good Status of Condition at Evaluation Stable Summary Impairments Pain ROM Strength Balance Coordination Sensation Tone Cognition Bed Mobility Transfers Gait Activity Tolerance Assessment Summary pt requiring SBA with mobility using FWW. pt likely progress during hospital stay and may go home when medically stable. stair climbing also will be completed prior to d/c Goals Bed Mobility Goal Independent Transfer Goal Independent Front Wheeled Walker Gait Goal Independent Front Wheel Walker Gait Distance 250 Other Goals up/down one step using FWW SBA Days to Meet Goals 3 Frequency of Treatment Frequency Of Treatment Twice a Day Treatment Plan Physical Therapy Treatment Plan Bed Mobility Training Transfer Training Gait Training Therapeutic Exercise Balance Retraining Post Op Education Discharge Planning Hot or Cold Pack Neuromuscular Re-ed Coordination Retraining Manual Therapy Other Recommendations and Next Treatment ambulation, stair climbing Focus Recommendations To Nursing Amount of Assist Needed Standby Assistance Discharge Recommendations PT Discharge Recommendations Home with Assistance
[2018-07-10] MEDS: AMLODIPINE 5 MG TABLET 10 MG PO (11:17)
--- NOTE | 2018-07-10 12:05 | CM.DANOTE ---
Discharge Planning/Care Management Met with patient: Patient notified of CM team role. Patient resides with spouse and 3 adult children. Patient works, drives and is independent in all ADLS without the use of DME. Patient does not anticipate any discharge needs at this time. Patient is pending PT eval at this time. Plan: Patient likely to discharge home with supportive family when medically stable. SW to follow for discharge needs after PT eval. CM Discharge Assessment Start: 07/10/18 12:03 Freq: Status: Active Protocol: Document 07/10/18 12:03 (Rec: 07/10/18 12:05 [id number]) Discharge Planning Assessment Assigned Benefits Processor KACI Honeycutt Advance Directives? No History Provided By Patient Medical Record Has Patient been admitted in last 30 No days? Prior Living Arrangements House Household Members spouse children Comment 3 adult children Type of transporation used prior to Drives own vehicle admit Independent with ADL's Yes Is patient alert and oriented? Yes Barriers to Discharge No Discharge Plan Home Transportation Arrangement Spouse will transport patient home. Whiteboard Updated in Patient Room with Yes name and ext. # of Benefits Processor Review Status In Process Please Provide Date Initial DC 07/10/18 Assessment Was Performed Next Review Type Continued Stay Review Pre-Anesthesia Assessment Start: 06/25/18 09:19 Freq: Status: Complete Protocol: Document 06/25/18 09:19 [facility] (Rec: 06/25/18 10:32 [facility] [id number]) Pre-Anesthesia Assessment Patient Also Known As Kam (AKA) Patient Information Reviewed Via Phone Assessment Assessment Completed With Patient Lab Results EKG Primary Care Provider Sg Beavers Seen Specialist in Last 12 Months Yes Specialist Seen Life Guard Orthopedist Urologist Primary Language Maltese Chucking And Boring Machine Operator Required No Height 185.42 cm Weight 107.955 kg Body Mass Index (BMI) 31.4 Hearing Ability Normal Visual Assist Magnifying Glass Dentition Type Teeth, Natural Present Teeth, Missing Barriers to Learning None Hx Anesthesia Reactions Yes: awoke during knee surgery age 17 Hx Family Anesthesia Reaction No Hx Malignant Hyperthermia No Hx Blood Transfusions No Comment High risk AF segundo-op r/t PAC burden - see Cardiology note 06/24/18 Anesthesia Review Requested No Electrical Lineworker No alcohol intake current alcohol intake frequency a few times a week Smoking Status Never smoker Substance Use Type does not use Pain Present Pain Reported Musculoskeletal Symptoms Abnormal Gait Back Pain Difficulty Walking Joint Pain Numbness Patient is completely paralyzed or No completely immobile Mental Status Oriented to own ability Is patient on oxygen? No Does patient have FLOWERS/SOB No Hx Sleep Apnea Yes: Resolved after gastric bypass'06 Currently Taking a Beta Vickie No Can You Climb a Flight of Stairs Without Yes SOB Hx Chest Pain Yes: ER/[facility] 04/25/18 - neg trop, mult EKG(no change) Hx SOB No Hx Syncope or Dizziness Yes: Occasional lightheadedness Anti-Coagulant Therapy No Has a Life Guard Yes: Dr. Garcia Cardiac Testing Yes: ECHO at [facility] 05/27/18, Stress test 06/16/[address] [facility] Hx Pacemaker/ICD No Pacemaker Rep Required? No Cardiac Clearance Received Yes Comment Cardiac notes/tests to med records to be scanned to chart Diet Type At Home Regular dysphagia No Bladder Pattern Nocturia Urinary Catheter Present No Hx Urinary Self Catheterization No Diabetes No Hx Drug Resistant Organism No Presence of External or Internal Medical No Devices Have you traveled outside the [facility] in the last 30 days? Marital Status Lives With spouse children Prior Living Arrangements House Number of Floors (Floors) One Floor Number of Stairs To Enter/Railing? 1 step, no railing Support System Child/Children Spouse Does the Patient Have Assistance After Yes Surgery Patient Discharge Plan Description Return Home Comment Pt advised 2-3 day length of stay per surgeon's office Feels Safe in Current Environment Yes Been Physically Hurt or Threatened By a No Person in Current Environment Do you have thoughts of harming yourself None or others? Are you currently considering suicide? No Do you have a plan to hurt yourself or No Plan others? Do You Have Any Spiritual Beliefs That No May Affect Your HC Choices? Do You Have Any Cultural Practices That No May Affect Your HC Choices? Spiritual Referral None Comment Pro Who Can We Speak to About Patient's Care Family, friends Identifying Code for Release of Patient Declines to issue Information Health Care Proxy/Next of Kin Shanique () Health Care Proxy Emergency Contact Name Shanique () Emergency Contact Advance Directives? No: Declines further information, has paperwork at home Power of Regional Loss Prevention Manager No PAC Instructions Durable medical equipment Medications to take/avoid Nasal antibiotic No ETOH/petroleum product on skin DOS NPO Pre-op antibiotic Sturdy shoes/comfortable clothes Do not bring valuables and remove jewelry
--- NOTE | 2018-07-10 12:08 | OT.IP.EVAL ---
Current Diagnoses Spondylolisthesis, lumbosacral region (07/09/18) Other spondylosis with radiculopathy, lumbar region (07/09/18) Surgery Performed Operation Date: 07/09/18 08:45 Actual Procedures p L3-4 Hemilaminectomy, L4-5, L5-S1 TLIF w/Posterior Instrumentation(Not Applicable) - Melissa Woodward MD Past Medical History (Last Reviewed 07/09/18 @ 16:51 by Abel Castaneda, PT, [place]) Anxiety about health (Acute) Atypical chest pain (Acute) Back pain (Acute) First degree atrioventricular block (Acute) Hand, open wound except fingers, with tendon injury (Acute) History of migraine headaches (Acute) Hx of sleep apnea (Acute) Overactive bladder (Acute) PAC (premature atrial contraction) (Acute) Sciatica (Acute) Hyperlipidemia (Chronic) Hypertension (Chronic) Radicular low back pain (Chronic) Surgical History (Last Updated 06/25/18 @ 10:18 by Lona Jiménez RN) History of arthroplasty of both knees (Acute) S/P ankle ligament repair (Acute) History of gastric bypass (Resolved 2005) Occupational Therapy Inpatient Evaluation/Re-Eval M1 PT/OT-IP Prior Functional Status Start: 07/09/18 16:57 Freq: NEEDED Status: Active Protocol: Document 07/10/18 12:08 SOURAV (Rec: 07/10/18 15:06 PJ [id number]) Medical Review Prior Functional Status Medical History Reviewed Yes Diet/Fluid Consistency Regular Communication WNL Mobility and Gait pt stated that he is independent with all mobilities and ambulation without AD Activities of Daily Living and IADL's Pt independent with all self care, does most of cooking at home; but limited by back pain . 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 Prior Functional Level (Other details) Supportive, capable can provide 24 hr assist after d/c PRN. She does not work outside the home. Social History Household Members spouse children Living Arrangements House Number of Floors (Floors) One Floor Number of Stairs To Enter/Railing? 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 OT-IP Current Condition Start: 07/10/18 14:50 Freq: Status: Active Protocol: Document 07/10/18 12:08 PJM (Rec: 07/10/18 15:06 PJ [id number]) Occupational Therapy Current Condition Current Condition Evaluation Date 07/10/18 Treatment Diagnosis decreased self care, functional mobility s/p L3-4 lami, L4-S1 TLIF Diagnosis Onset Date 07/09/18 Post Operative Precautions Lumbar Precautions Log Roll No Twisting Limit Bending Lifting Restriction of 10 lbs Gait Belt above Incisional Area M3 OT- IP Subjective and Pain Start: 07/10/18 14:50 Freq: Status: Active Protocol: Document 07/10/18 12:08 PJM (Rec: 07/10/18 15:06 PJ [id number]) OT- Subjective Occupational Therapy Visit Type Type Initial Evaluation Visit Start Time 11:31 Visit Stop Time 12:08 Total Visit Minutes 37 Notes here for education this session Occupational Therapy Visit Comments Patient Comments I just feel so stiff. Patient/Caregiver Goals to return to work in 2-3 months OT Pain Assessment Pain When Pain Assessed After Treatment Pain Present Pain Present Pain Reported Location Back Intensity 6 Description Aching Acute M4 OT- IP ADL's Start: 07/10/18 14:50 Freq: Status: Active Protocol: Document 07/10/18 12:08 PJM (Rec: 07/10/18 15:06 PJ [id number]) OT [id number] General Evaluation Diet Level for Self-Feeding general Self-Feeding Ability Independent OT ADL-Grooming General Evaluation Grooming Ability Standby Assistance Areas Needing Assistance Retrieving/Set-up of Grooming Items Face Washing Comments OT Grooming Comments seated in chair OT ADL-Oral Care Comments Oral Care Comments pt declined this session OT ADL-Dressing General Eval Upper Body Dressing Ability Standby Assistance Lower Body Dressing Ability Maximum Assistance Assistive Devices Dressing Assistive Devices Long Handled Shoe Horn Oncology Nurse Comments OT Dressing Comments Began education about precautions, body mechanics and adaptive equipt options. Pt prefers to assist with socks. 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 long bath brush M5 OT- IP IADL's Start: 07/10/18 14:50 Freq: Status: Active Protocol: Document 07/10/18 12:08 PJ (Rec: 07/10/18 15:06 [facility] [id number]) OT-Instrumental Activities of Daily Living Deficits IADL Deficits Identified Deficits Home Safety Awareness Awareness of Need for Assistance at Home Good Awareness Ability to Problem Solve Emergency Able to Problem Solve Situations Medication Management Medication Management No Deficits Identified Money Management Money Management No Deficits Identified Meal Preparation Meal Preparation Caregiver Provides Assist Meal Preparation Comments can assist until pt able Washer And Capper Machine Operator Washer And Capper Machine Operator Caregiver Provides Assist Washer And Capper Machine Operator Comments can assist until pt able Driving Driving Caregiver Provides Assist Driving Comments can assist until pt able M6 OT- IP Functional Cognition Start: 07/10/18 14:50 Freq: Status: Active Protocol: Document 07/10/18 12:08 PJ (Rec: 07/10/18 15:06 [facility] [id number]) Cognitive Factors Limiting Selfcare Function Cognitive Ability Level of Alertness Alert Patient Orientation Name Age Birthday Month Date Year Day of Week Place Situation Attention Span Ability Capable of Focused Attention Capable of Sustained Attention Ability to Follow Commands Able to Follow One Step Commands Memory Description No Deficits Noted Safety Awareness No Deficits Noted Problem Solving Ability No deficits Noted Cognitive Comments Cognitive Assessment Comments Pt recalls 3/3 precautions, cognition appears WNL OT- Vision and Hearing OT- Hearing Assessment OT- Hearing Assessment WFL OT- Vision Assessment Visual Acuity WFL Vision Assessment Comments Pt denies any recent vision changes. M7 OT- IP Mobility and Balance Start: 07/10/18 14:50 Freq: Status: Active Protocol: Document 07/10/18 12:08 PJ (Rec: 07/10/18 15:06 [facility] [id number]) OT-Transfer Assessment Comments Mobility Comments did not occur; pt seen up in chair this session; see P.T. notes OT- Gait Assessment Comments Gait Ability Comments did not occur; pt seen up in chair this session; see P.T. notes OT- Balance Assessment Comments Other Balance Tests/Deviations/Treatment did not occur; pt seen up in : chair this session; see P.T. notes M8 OT- IP Objective Assessments Start: 07/10/18 14:50 Freq: Status: Active Protocol: Document 07/10/18 12:08 PJM (Rec: 07/10/18 15:06 PJM [id number]) OT Gross Range of Motion Upper Extremity Range of Motion Assessment Within Functional Limits OT Strength Upper Extremity Strength Assessment Within Functional Limits OT- Coordination Assessment Comments Coordination Comments BUE WNL OT-Muscle Tone Assessment Muscle Tone WNL Yes OT Sensation Assessment Comments Summary Comments Pt denies deficits in BUE's Edema Edema Absent M9 OT- IP Assessment and Plan Start: 07/10/18 14:50 Freq: Status: Active Protocol: Document 07/10/18 12:08 PJM (Rec: 07/10/18 15:06 PJM [id number]) OT Summary Assessment and Plan Potential Rehabilitation Potential Excellent Analytic Complexity at Evaluation Low Summary OT Impairments Pain Balance Grooming Dressing Toileting Bathing Toilet Transfers Shower Transfers Assessment Summary Low complexity OT assessment completed with emphasis on self care skills within new lumbar spine precautions. Began education re: adapted ADL techniques and equipment options. Pt currently has performance deficits in all functional mobility/transfers, standing self care tasks, lower body dressing, bathing and toileting. Pt will benefit from 1-2 additional OT visits here to address the goals below. Anticipate pt will be able to d/c home with 24 hr assist from supportive when medically stable and clears P.T. Goals Grooming Goal Independent Dressing Goal Minimal Assistance Toileting Goal Independent Bathing Goal Standby Assistance Long Handled Sponge or Hildebran Toilet Transfer Goal Independent Raised Toilet Seat Shower Transfer Goal Standby Assistance Patient/Caregiver Education Goal Demonstrate Post-Op Precautions Demonstrate Energy Conservation and Pacing Caregiver Independent Assisting Patient OT-Other Goals Grooming to be done standing with good body mechanics. Pt prefers to assist with socks so dressing goal is min assist. 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
--- NOTE | 2018-07-10 14:16 | PT.IPTN ---
Current Diagnoses Spondylolisthesis, lumbosacral region (07/09/18) Other spondylosis with radiculopathy, lumbar region (07/09/18) Surgery Performed Operation Date: 07/09/18 08:45 Actual Procedures p L3-4 Hemilaminectomy, L4-5, L5-S1 TLIF w/Posterior Instrumentation(Not Applicable) - Melissa Woodward MD Physical Therapy Treatment Note M2 PT-IP Current Condition Start: 07/09/18 16:57 Freq: NEEDED Status: Active Protocol: Document 07/10/18 10:07 AB (Rec: 07/10/18 13:05 AB [id number]) Physical Therapy Current Condition Current Condition Evaluation Date 07/10/18 Treatment Diagnosis s/p L3-4, l4-5, L5S1 fusion/ lami; difficulty in walking Onset Date 07/09/18 Precautions Lumbar Precautions Log Roll No Twisting Limit Bending Lifting Restriction of 10 lbs Gait Belt above Incisional Area M3 PT-IP Subjective Start: 07/09/18 16:57 Freq: NEEDED Status: Active Protocol: Document 07/10/18 14:15 GGD (Rec: 07/10/18 15:16 GGD [id number]) Subjective Physical Therapy Visit Type Type Treatment Note Visit Start Time 13:50 Visit Stop Time 14:15 Total Visit Minutes 25 Number of COMMUNICATIONS SYSTEMS ENGINEER Visits 1 Physical Therapy Visit Comments Patient Comments Pt states he willing to get up . Therapy Pain Assessment Pain When Pain Assessed At Rest Pain Present Pain Present Pain Reported Location Back Intensity 5 Scale Used Numeric (1 - 10) M4 PT-IP Mobility and Gait Start: 07/09/18 16:57 Freq: NEEDED Status: Active Protocol: Document 07/10/18 14:15 GGD (Rec: 07/10/18 15:16 GGD [id number]) PT-Bed Mobility Assessment Rolling Type of Rolling Log Rolling Level of Assist Standby Assistance Supine to Sit Supine to Sit Standby Assistance Scooting Scooting to Edge of Bed Standby Assistance PT-Transfer Assessment Sit to and From Stand Sit to and from Stand Standby Assistance Use of Upper Extremities Equipment Transfer Assistive Device Gait Belt Front Wheeled Walker Orthotic/Prosthetic Devices or Brace: No Transfers Transfer Destination Bed Transfer Ability Level of Assist Standby Assistance Gait Assessment Gait Gait Assistance Required: Standby Assistance Distance (Feet) 220 Able to Maintain Weight Bearing Status Yes During Gait Assistive Devices Assistive Device Gait Belt Front Wheeled Walker Orthotic/Prosthetic Devices or Brace: No Gait Deviations General Gait Pattern Decreased Stride Length Decreased Feet Clearance Flexed Trunk Factors Limiting Gait Function Factors Limiting Gait Function Decreased Activity Tolerance Decreased Strength Limited Range of Motion Pain Poor Balance Stair Climbing Assessment Evaluation Level of Assist On Stairs Contact Guard Assistance Devices Stair Climbing Assistive Devices Front Wheel Walker Technique/Endurance Stair Climbing Direction Ascend and Descend Stair Climbing Technique Step to Step Number of Steps Climbed 1 Query Text: Stair Climbing Set # Repetitions (reps) 2 Comments Stair Climbing Comments Min cues for stair mobility. M5 PT-IP Objective Assessments Start: 07/09/18 16:57 Freq: NEEDED Status: Active Protocol: Document 07/10/18 10:07 AB (Rec: 07/10/18 13:05 AB [id number]) Orientation Orientation/Cognition Level of Alertness Alert Orientation Name Age Birthday Month Date Year Day of Week Place Situation Safety Awareness Understands Safety Issues Coordination Assessment Gross Coordination Gross Coordination WNL Sensation Assessment Sensation Gross Sensation WNL M6 PT-IP Treatment Start: 07/09/18 16:57 Freq: NEEDED Status: Active Protocol: Document 07/10/18 14:15 GGD (Rec: 07/10/18 15:16 GGD [id number]) Physical Therapy Treatment Education Education Provided Precautions Safety M7 PT-IP Assessment and Plan Start: 07/09/18 16:57 Freq: NEEDED Status: Active Protocol: Document 07/10/18 14:15 GGD (Rec: 07/10/18 15:16 GGD [id number]) PT Summary Assessment and Plan Summary Assessment Summary Pt improivng with mobility. He was able to progress gait with FWW. He was safe and stable for stair mobility. He needed less cues for bed mobility. Pt likely to D/C home when medically stable. Frequency of Treatment Frequency Of Treatment Twice a Day Treatment Plan Other Recommendations and Next Treatment ambulation, stair climbing Focus Recommendations To Nursing Amount of Assist Needed Standby Assistance Discharge Recommendations PT Discharge Recommendations Home with Assistance
[2018-07-10] MEDS: SODIUM CHLORIDE 0.9% FLUSH 10 ML IV (20:47)
[2018-07-10] MEDS: SENNOSIDES 8.6 MG TABLET 17.2 MG PO (20:48)
[2018-07-11] MEDS: OXYCODONE IR 5 MG TABLET 10 MG PO ×2 (03:06→06:05)
[2018-07-11 04:20] VITALS: BP 136/76; PULSE 66; RESP 17; TEMP 36.7; O2SAT 92
--- NOTE | 2018-07-11 06:18 | PC.NURSE ---
Shift: Pt has appropriately been using his call light every 3 hours for pain management for pain consistently rated at 8/10. D/c'd padron per protocol at 0610 with no complaints, pt encouraged to hydrate to facilitate post-removal void. Pt acknowledge understanding.
[2018-07-11 07:45] VITALS: BP 121/78; PULSE 63; RESP 20; TEMP 37.3; O2SAT 96
--- NOTE | 2018-07-11 08:55 | OT.IP.TRT ---
Current Diagnoses Spondylolisthesis, lumbosacral region (07/09/18) Other spondylosis with radiculopathy, lumbar region (07/09/18) Surgery Performed Operation Date: 07/09/18 08:45 Actual Procedures p L3-4 Hemilaminectomy, L4-5, L5-S1 TLIF w/Posterior Instrumentation(Not Applicable) - Melissa Woodward MD Occupational Therapy Treatment Note M2 OT-IP Current Condition Start: 07/10/18 14:50 Freq: Status: Active Protocol: Document 07/10/18 12:08 PJM (Rec: 07/10/18 15:06 PJ [id number]) Occupational Therapy Current Condition Current Condition Evaluation Date 07/10/18 Treatment Diagnosis decreased self care, functional mobility s/p L3-4 lami, L4-S1 TLIF Diagnosis Onset Date 07/09/18 Post Operative Precautions Lumbar Precautions Log Roll No Twisting Limit Bending Lifting Restriction of 10 lbs Gait Belt above Incisional Area M3 OT- IP Subjective and Pain Start: 07/10/18 14:50 Freq: Status: Active Protocol: Document 07/11/18 08:53 [facility] (Rec: 07/11/18 08:55 [facility] [id number]) OT- Subjective Occupational Therapy Visit Type Type Patient Refusal Notes Pt states has no further questions for OT and states waiting for his to come and assist with all grooming and showering needs.
[2018-07-11] MEDS: HYDROMORPHONE 2 MG TABLET PO ×2 (09:16→13:14)
--- NOTE | 2018-07-11 09:23 | P.DS_ITS ---
History of Present Illness Date Patient Seen: 07/11/18 Time Patient Seen: 09:18 Chief complaint: [id number]; ALSO M48.06 Narrative: Hospital day 2, postop day 1 following left L3-4 hemilaminectomy, L4- 5, L5-S1 TLIF by Dr. Woodward. Patient remained stable postoperatively. Jimenez catheter DC at 0610 this morning. He has not voided yet. He has been getting oxycodone 10 mg q.3h. I feels the pain medication is lasting very long. He has had some IV Dilaudid which seems to work better. I did ambulate with physical therapy yesterday and do stairs. He does have help at home. Discharge Providers Date of admission: 07/09/18 07:28 Primary care physician: MARGO Porter Consults: 07/09/18 14:10 Consult to Occupational Therapy Evaluate & Treat Comment: Physician Instructions: Evaluate and treat Consult to Physical Therapy Evaluate & Treat Comment: Physician Instructions: Evaluate and Treat Discharge provider: Kp Bravo PA-C Discharge Date: 07/11/18 Summary Discharge Diagnosis: Status post left L3-4 hemilaminectomy, L4-5-L5-S1 TLIF. Hospital Course: Patient remained stable postoperatively. Ambulating with physical therapy. He improved enough to be discharged home on postop day 1. Status at Discharge Cognitive/behavioral status at discharge: Alert, oriented no acute distress sitting in chair. Overall status at discharge: patient is progressing back to baseline Time Spent with Patient Less than 30 minutes Exam Vital Signs (past 8 hours): - 07/11/18 04:20 07/11/18 07:45 Temperature 98.1 F 99.2 F Pulse Rate 66 63 Respiratory Rate 17 20 Blood Pressure 136/76 121/78 Pulse Oximetry 92 96 Oxygen Delivery Method Room Air Oxygen Flow Rate 0 Narrative Exam Narrative: Alert, oriented no acute distress sitting in chair. Back. Dressing to lumbar area is dry without drainage or inflammation. Legs. No calf pain or swelling. Pulses symmetrical. Good sensation to touch to lower legs symmetrical. Ankle dorsiflexion plantar flexion strong and equal. Objective Labs Result Diagrams: 07/10/18 05:30 Discharge Plan Discharge Plan Patient Disposition: Home Discharge comment: Discharge to home after cleared by physical therapy and patient able to void. Will observe for improvement in pain control with Dilaudid p.o.. Discharge Med Rec/Prescriptions Prescriptions: Continue CALCIUM CARBONATE (Calcium Carbonate) 500 mg PO DAILY Qty: 0 RF: 0 CYANOCOBALAMIN (VITAMIN B-12) (Vitamin B-12) 1 tab PO DAILY Qty: 0 RF: 0 losartan 50 mg tablet 50 mg PO BID Qty: 60 RF: 5 amlodipine 10 mg tablet 10 mg PO DAILY Qty: 30 RF: 5 chlorthalidone 25 mg tablet 25 mg PO DAILY Qty: 30 RF: 5 celecoxib [Celebrex] 200 mg capsule 200 mg PO QDAY Qty: 90 RF: 1 tamsulosin 0.4 mg Capsule 0.4 mg PO BID RF: 0 flecainide 50 mg Tablet 50 mg PO BID RF: 0 metoprolol succinate 25 mg Tablet Extended Release 24 Hr 25 mg PO DAILY RF: 0 ketoconazole 2 % cream 1 applictn TOP BID PRN (Reason: athlete's foot) RF: 0 hydralazine 50 mg Tablet 50 mg PO TID RF: 0 cetirizine 10 mg tablet 10 mg PO QDAY PRN (Reason: allergies) RF: 0 acyclovir [Zovirax] 400 mg tablet 400 mg PO TID PRN (Reason: herpes) RF: 0 Provider Discharge Instructions Diet: Diet as Tolerated Activity: Ambulate as tolerated. Skin/Wound/Dressing Care Report to your healthcare provider any signs of infection, such as:: chills, fever, night sweats, increased pain and unusual drainage Dressing: Keep CovRsite dressing to lumbar area until postop visit. Visit Report/Discharge Packet Instructions: DI for Transforaminal Lumbar Interbody Fusion Discharge Data Primary Care Provider: Joana Delgadillo Attending Provider: Melissa Woodward Admit Date/Time: 07/09/18 07:28
[2018-07-11 09:31] VITALS: BP 117/63; PULSE 70
[2018-07-11] MEDS: METOPROLOL ER 25 MG TABLET PO (09:31)
[2018-07-11] MEDS: LOSARTAN 50 MG TABLET PO (09:31)
[2018-07-11] MEDS: FLECAINIDE 100 MG TABLET 50 MG PO (09:31)
[2018-07-11] MEDS: TAMSULOSIN 0.4 MG CAPSULE PO (09:31)
[2018-07-11] MEDS: AMLODIPINE 5 MG TABLET 10 MG PO (09:31)
[2018-07-11] MEDS: CALCIUM CARBONATE 500 MG TAB PO (09:32)
[2018-07-11] MEDS: DOCUSATE 100 MG CAPSULE PO (09:32)
[2018-07-11] MEDS: SODIUM CHLORIDE 0.9% FLUSH 10 ML IV (09:32)
[2018-07-11] MEDS: CHLORTHALIDONE 25 MG TABLET PO (09:32)
--- NOTE | 2018-07-11 11:07 | PT.IPTN ---
Current Diagnoses Spondylolisthesis, lumbosacral region (07/09/18) Other spondylosis with radiculopathy, lumbar region (07/09/18) Surgery Performed Operation Date: 07/09/18 08:45 Actual Procedures p L3-4 Hemilaminectomy, L4-5, L5-S1 TLIF w/Posterior Instrumentation(Not Applicable) - Melissa Woodward MD Physical Therapy Treatment Note M2 PT-IP Current Condition Start: 07/09/18 16:57 Freq: NEEDED Status: Active Protocol: Document 07/10/18 10:07 AB (Rec: 07/10/18 13:05 AB [id number]) Physical Therapy Current Condition Current Condition Evaluation Date 07/10/18 Treatment Diagnosis s/p L3-4, l4-5, L5S1 fusion/ lami; difficulty in walking Onset Date 07/09/18 Precautions Lumbar Precautions Log Roll No Twisting Limit Bending Lifting Restriction of 10 lbs Gait Belt above Incisional Area M3 PT-IP Subjective Start: 07/09/18 16:57 Freq: NEEDED Status: Active Protocol: Document 07/11/18 11:01 GGD (Rec: 07/11/18 11:07 GGD [id number]) Subjective Physical Therapy Visit Type Type Patient Refusal Notes Pt states that he is D/C today and has no further needs. home when medically stable. Frequency of Treatment Frequency Of Treatment Twice a Day Treatment Plan Other Recommendations and Next Treatment ambulation, stair climbing Focus Recommendations To Nursing Amount of Assist Needed Standby Assistance Discharge Recommendations PT Discharge Recommendations Home with Assistance
--- NOTE | 2018-07-11 12:13 | CM.DPC ---
DCP/Discharge Patient to discharge home today with OP PT. Met with patient and spouse: both agreeable to discharge and have no needs. Spouse will provide transportation and has the assistance of her 3 adult sons when they arrive at the house. Plan: Discharge home today with supportive family via pov.
--- NOTE | 2018-07-11 13:58 | PC.NURSE ---
Addendum entered by Crystal Gerardo R.N. 07/11/18 16:41: Script rec'd from RAMÓN Gonzalez. Pt had no questions after reviewing discharge summary packet. Has all belongings. Pt left unit at 1520 in no distress via wheelchair with this customs entry writer. Original Note: Day Shift- Lower back dressing changed to coversite plus per verbal order by RAMÓN Levi this AM. Old dressing removed for small amount of sero-sang drainage. Area cleansed with NS, covered with coversite plus dressing pt tolerated well. Plan to switch prn pain meds from Oxycodone to prn po Dilaudid effective, pt agreeable to dilaudid for prescription for home. Pt did go 4 hours instead of 3 hrs between pain meds and this posed to be too long of a time frame. Dilaudid po prn 2mg given at 0915, 4mg given at 1310. Pt's at bedside and will drive pt home. RAMÓN Velez left message at [phone] re discharge prescriptions. Rec'd call back at 1330. Kp left message with RAMÓN Gonzalez to fulfill prescriptions and finalize med list. Pt aware.
[2018-07-11 15:33] VITALS: BP 133/71; PULSE 62; RESP 16; TEMP 36.8; O2SAT 100
== END 2018-07-11 15:33 | disposition home or self-care (01) | DRG 454 ==
PROVIDERS: Admitting Provider Orthopaedic Surgery Orthopaedic Surgery of the Spine; PCP Registered Nurse; Visit Provider Orthopaedic Surgery Orthopaedic Surgery of the Spine
PROC: 0SG00AJ Fusion of Lumbar Vertebral Joint with Interbody Fusion Device, Posterior Approach, Anterior Column, Open Approach (ICD-10-PCS; principal; 2018-07-09 08:45)
DX: M48.062 Spinal stenosis, lumbar region with neurogenic claudication (principal); I47.1 Supraventricular tachycardia; M53.3 Sacrococcygeal disorders, not elsewhere classified; I49.1 Atrial premature depolarization; I11.9 Hypertensive heart disease without heart failure; I44.0 Atrioventricular block, first degree; M48.07 Spinal stenosis, lumbosacral region
CPT/HCPCS: 36415; 72100; 76001; 85014; 85018; 97116; 97161; 97165; 97530; 97535; C1776; C9290; J0131; J0330; J0690; J1100; J1170; J2250; J2405; J2704; J3010

== ENCOUNTER → 2018-08-20 12:15 | Outpatient (CLI) | payer OTHER, SELFPAY ==
[2018-07-30 10:43] VITALS: BMI 30.9
[2018-08-20 13:42] LABS: BUN Creatinine Ratio 19.1 (6-22); Blood Urea Nitrogen 21 mg/dL (9-20); Calcium 9.4 mg/dL (8.4-10.2); Carbon Dioxide 25 mmol/L (22-32); Chloride 100 mmol/L (98-107); Estimated Glomerular Filt Rate > 60.0 mL/min (>60); Glucose 82 mg/dL (70-100); HEMOLYSIS < 15 (0-50); Sodium 140 mmol/L (137-145)
== END ==
PROVIDERS: Visit Provider Internal Medicine Cardiovascular Disease
DX: I10 Essential (primary) hypertension (principal)
CPT/HCPCS: 36415; 80048

== ENCOUNTER → 2018-11-10 08:53 | Outpatient (CLI) | payer OTHER, SELFPAY ==
[2018-07-30 10:43] VITALS: BMI 30.9
--- NOTE | 2018-11-10 | DI.CT.S_ITS ---
PROCEDURE: CT LUMBAR SPINE WO CON INDICATIONS: SACROCOCCYGEAL DISORDERS TECHNIQUE: Noncontrast 3 mm thick sections acquired from the T12 level to the sacrum. Sagittal and coronal reformats were constructed. For radiation dose reduction, the following was used: automated exposure control. COMPARISON: [facility] [place], MR, MR LUMBAR SPINE WO CON, 10/11/2015, 15:50. [facility] [place], CR, XR LUMBAR SPINE 2 OR 3 VIEWS, 10/30/2018, 9:03. FINDINGS: Image quality: Excellent. Bones: Postsurgical changes related to L4-S1 posterior spinal fixation with paraspinal pebbles and pedicle screws. Minimal levocurvature. There also interbody cage grass at L4-L5 and L5-S1. As post L4-L5 L5-S1 left-sided laminotomies. No acute vertebral body compression fractures. No suspicious lytic or blastic bony lesions. T12-L1: Bilateral facet arthropathy. No bony canal or foraminal narrowing L1-L2: Broad-based posterior disc bulge and bilateral facet arthropathy. No high-grade canal stenosis. Mild left and no definite right bony foraminal stenoses L2-L3: Minimal broad-based posterior disc bulge and bilateral facet arthropathy. No high-grade central canal stenosis. Mild left foraminal narrowing. No right bony foraminal narrowing L3-L4: Broad-based posterior disc bulge bilateral facet arthropathy. Mild central canal narrowing. Moderate to severe right foraminal stenosis. No left bony foraminal narrowing L4-L5: Minimal residual canal narrowing, although limited evaluation due to streak artifact. Mild bilateral (right greater than left) bony foraminal stenosis L5-S1: Broad-based posterior disc bulge. No high-grade residual canal stenosis. Severe left-sided foraminal narrowing. No definite right bony foraminal stenosis Soft tissues: No retroperitoneal masses or hematomas. Visualized aorta is normal in caliber. IMPRESSION: Postsurgical instrumentation from L4-S1 as above. No definite residual high-grade bony canal stenosis. Severe left L5-S1 foraminal narrowing. This may be slightly progressed since the prior study from 10/11/15 although limited comparison given differences in imaging modality. [id number] right L3-L4 foraminal narrowing, probably unchanged. Bilateral mild (right greater than left) L4-L5 foraminal narrowing. No definite interval change. Dictated by: Jan Pena M.D. on 11/10/2018 at 11:39 Approved by: Jan Pena M.D. on 11/10/2018 at 11:51
== END ==
PROVIDERS: PCP Student in an Organized Health Care Education/Training Program; Visit Provider Orthopaedic Surgery Orthopaedic Surgery of the Spine
DX: M53.3 Sacrococcygeal disorders, not elsewhere classified (principal); M47.815 Spondylosis without myelopathy or radiculopathy, thoracolumbar region; M47.816 Spondylosis without myelopathy or radiculopathy, lumbar region; M51.26 Other intervertebral disc displacement, lumbar region; M51.27 Other intervertebral disc displacement, lumbosacral region; M48.061 Spinal stenosis, lumbar region without neurogenic claudication; M48.07 Spinal stenosis, lumbosacral region
CPT/HCPCS: 72131

== ENCOUNTER → 2019-07-09 16:22 | Outpatient (CLI) | payer OTHER, SELFPAY ==
[2018-07-30 10:43] VITALS: BMI 30.9
[2019-07-09 17:18] LABS: BUN Creatinine Ratio 32.2 (6-22); Blood Urea Nitrogen 29 mg/dL (9-20); Calcium 9.8 mg/dL (8.4-10.2); Carbon Dioxide 30 mmol/L (22-32); Chloride 101 mmol/L (98-107); Estimated Glomerular Filt Rate > 60.0 mL/min (>60); Glucose 89 mg/dL (70-100); HEMOLYSIS < 15 (0-50); Potassium 4.1 mmol/L (3.4-5.1); Sodium 139 mmol/L (137-145)
[2019-07-09 17:49] LABS: Prostate Specific Antigen Scrn 2.35 ng/mL (0.1-4.0)
== END ==
PROVIDERS: PCP Student in an Organized Health Care Education/Training Program; Visit Provider Student in an Organized Health Care Education/Training Program
DX: Z12.5 Encounter for screening for malignant neoplasm of prostate (principal); I10 Essential (primary) hypertension; Z79.1 Long term (current) use of non-steroidal anti-inflammatories (NSAID); E55.9 Vitamin D deficiency, unspecified
CPT/HCPCS: 36415; 80048; 82306; G0103

== ENCOUNTER → 2019-07-29 11:34 | Outpatient (CLI) | payer OTHER, SELFPAY ==
[2018-07-30 10:43] VITALS: BMI 30.9
[2019-07-29 12:49] LABS: Prostate Specific Antigen 2.15 ng/mL (0.10-4.00)
== END ==
PROVIDERS: Family Provider Student in an Organized Health Care Education/Training Program; PCP Student in an Organized Health Care Education/Training Program; Visit Provider Urology
DX: Z12.5 Encounter for screening for malignant neoplasm of prostate (principal)
CPT/HCPCS: 36415; 84153

== ENCOUNTER → 2019-08-07 06:52 | Outpatient (CLI) | payer OTHER, SELFPAY ==
[2018-07-30 10:43] VITALS: BMI 30.9
--- NOTE | 2019-08-07 | DI.ECHO.S_ITS ---
[place] +---------+ [facility] +---------+ : : [address] : [address] : : : : [phone] : : : : Phone: [phone]+ Echocardiogram Report + + :Name: PANTERA MORENO Study Date: 08/07/2019 Height: 72 in : :[facility] Weight: 210 lb : : Gender: Male BSA: 2.2 m2 : :: 1960 Age: 59 yrs BP: 150/86 mmHg: :Reason For Study: Aortic, Ascending Aneurysm : : Performed By: Madelyn Yan : :Referring: CHIOMA GARCIA : + + Interpretation Summary 1) Normal left ventricular thickness, size, wall motion, and systoilc function (EF 60-65%). 2) Mildly enlarged right ventricle with normal function. 3) There is mild to moderate aortic regurgitation. 4) The aortic root is mildly dilated at 4.3cm. The aortic arch is mildly- moderately enlarged at 4.1cm. 5) Compared to the Echo done 05/27/2018, aortic root and aortic arch diameter has increased by 0.1cm. Procedure: A two-dimensional transthoracic echocardiogram with color flow and Doppler was performed. The study quality was technically adequate. Comparison is made with the echocardiogram of 05-27-18. The heart rate ranged between 57-64 bpm during the study. Left Ventricle: The left ventricle is normal in size, wall thickness, and systolic function without any focal wall motion abnormalities. The ejection fraction is estimated to be 60-65%. Diastolic parameters suggest a relaxation abnormality of the left ventricle, consistent with probable normal filling pressures. Right Ventricle: Borderline right ventricular enlargement. The right ventricular systolic function is normal. Atria: The left atrium is severely dilated. The right atrium is moderate to severely dilated. The interatrial septum is intact with no evidence for an atrial septal defect. Mitral Valve: The mitral valve leaflets appear mildly thickened, but open well. There is no mitral regurgitation noted. Aortic Valve: The aortic valve opens well. There is mild to moderate aortic regurgitation. Tricuspid Valve: The tricuspid valve is normal in structure and function. There is trace tricuspid regurgitation. The right ventricular systolic pressure is estimated to be at least 22 mmHg based on an estimated right atrial pressure of 3 mm Hg. Pulmonic Valve: The pulmonic valve is not well seen, but is grossly normal. Great Vessels: The aortic root is mildly dilated. The ascending aorta is mildly enlarged. The aortic arch is moderately enlarged. The IVC is of normal diameter and collapses greater than 50% with a sniff. This suggests a low right atrial pressure of 3 mm Hg. Pericardium/ Pleura There is no pericardial effusion. There is no pleural effusion. MMode/2D Measurements & Calculations LVIDd: 5.6 cm Ao root diam: 4.3 cm LVIDs: 3.5 cm Aortic Jxn: 3.1 cm FS: 36.7 % asc Aorta Diam: 4.3 cm IVSd: 1.00 cm Ao Arch Diam (Prox Trans): 4.1 cm LVPWd: 0.95 cm LV winn. diameter/BSA (cm/m^2): 2.6 LV sys. diameter/BSA (cm/m^2): 1.6 LA dimension: 5.0 cm RA long axis: 5.4 cm LA A2 area: 32.4 cm2 RA area: 26.7 cm2 LA A4 area: 29.0 cm2 RA vol: 112.2 ml LA length (vol): 5.7 cm RA : 51.6 ml/m2 LA vol: 140.3 ml IVC diam: 2.0 cm LA vol index: 64.5 ml/m2 RVDd major: 7.1 cm RVD1 (basal): 4.8 cm RVD2 (mid): 3.5 cm Doppler Measurements & Calculations Ao V2 max: 160.2 cm/sec MV E max garcía: 68.0 cm/sec Ao V2 mean: 101.4 cm/sec MV A max garcía: 54.8 cm/sec Ao max P.3 mmHg MV E/A: 1.2 Ao mean P.9 mmHg Med Peak E' García: 6.1 cm/sec Ao V2 VTI: 36.5 cm E/E' med: 11.1 Lat Peak E' García: 11.2 cm/sec E/E' lat: 6.1 E/e' average: 8.6 MV dec time: 0.21 sec MV P1/2t: 60.4 msec TR max garcía: 219.5 cm/sec MV P1/2t max garcía: 67.5 cm/sec TR max P.3 mmHg MVA(P1/2t): 3.6 cm2 PA V2 max: 71.0 cm/sec PA V2 mean: 47.7 cm/sec PA mean P.1 mmHg PA Accel Time: 0.14 sec Reading Physician:01:38 PM
== END ==
PROVIDERS: Family Provider Student in an Organized Health Care Education/Training Program; PCP Student in an Organized Health Care Education/Training Program; Visit Provider Internal Medicine Cardiovascular Disease
DX: I35.1 Nonrheumatic aortic (valve) insufficiency (principal); I77.810 Thoracic aortic ectasia
CPT/HCPCS: 93306

== ENCOUNTER → 2019-10-23 14:10 | Outpatient (CLI) | payer OTHER, SELFPAY ==
[2018-07-30 10:43] VITALS: BMI 30.9
[2019-10-23 15:24] LABS: BUN Creatinine Ratio 30.8 (6-22); Blood Urea Nitrogen 40 mg/dL (9-20); Calcium 9.1 mg/dL (8.4-10.2); Carbon Dioxide 22 mmol/L (22-32); Chloride 108 mmol/L (98-107); Estimated Glomerular Filt Rate 56.7 mL/min (>60); Glucose 106 mg/dL (70-100); HEMOLYSIS < 15 (0-50); Potassium 3.7 mmol/L (3.4-5.1); Sodium 140 mmol/L (137-145)
== END ==
PROVIDERS: Family Provider Student in an Organized Health Care Education/Training Program; PCP Student in an Organized Health Care Education/Training Program; Referring Provider Internal Medicine Cardiovascular Disease; Visit Provider Internal Medicine Cardiovascular Disease
DX: I10 Essential (primary) hypertension (principal)
CPT/HCPCS: 36415; 80048

== ENCOUNTER 2020-06-30 22:29 | Emergency (ER) | payer OTHER, SELFPAY ==
[2018-07-30 10:43] VITALS: BMI 30.9
[2020-06-30 22:36] VITALS: BP 158/80; PULSE 62; RESP 22; TEMP 36.6; O2SAT 98
--- NOTE | 2020-06-30 22:39 | DI.RAD.S_ITS ---
PROCEDURE: XR ANKLE LT MIN 3V INDICATIONS: walking and felt a Popcan not bear weight TECHNIQUE: 3 views of the ankle were acquired. COMPARISON: None. FINDINGS: Bones: No acute fractures or dislocations. 6 millimeter ossification noted adjacent to the medial malleolus which may represent accessory ossicle versus chronic avulsion injury. Ankle mortise is normally aligned. No suspicious bony lesions. Tibiotalar and midfoot osteoarthritis. Soft tissues: Small tibiotalar joint effusion. Achilles tendon appears normal. IMPRESSION: 1. No acute fracture. No acute osseous lesion. If symptoms and/or clinical suspicion for pathology persists, further assessment with repeat radiographs (7-10 days) or advanced imaging (e.g. CT, MRI or bone scan) may be helpful. 2. Tibiotalar joint effusion. 3. Osteoarthritis. Dictated by: Padmini Maurice MD, PhD on 07/01/2020 at 8:54 Approved by: Padmini Maurice MD, PhD on 07/01/2020 at 8:56
--- NOTE | 2020-07-01 | ED_ITS ---
HPI - Extremity Injury (Lower) General Chief Complaint: Extremity Injury, Lower Stated Complaint: left ankle popped while walking Time Seen by Provider: 06/30/20 22:44 Source: patient Mode of arrival: Wheelchair Limitations: no limitations History of Present Illness HPI Narrative: 60-year-old male here for evaluation of left ankle injury. Patient states that as he was walking down a incline he felt a pop in his left ankle. He states that was on the front and the outside of his ankle. Has been unable to ambulate on it since then. No prior injuries. Does have small amount of swelling on the outside of his ankle. Did place some ice on a prior to arrival and full. Took some Tylenol and Excedrin prior to arrival. Related Data Home Medications Medication Instructions Recorded Confirmed CALCIUM CARBONATE (Calcium 500 mg PO DAILY #0 03/11/12 07/09/19 Carbonate) CYANOCOBALAMIN (VITAMIN B-12) 1 tab PO DAILY #0 03/11/12 07/09/19 (Vitamin B-12) flecainide 50 mg PO BID 06/25/18 07/09/19 tamsulosin 0.4 mg PO BID 06/25/18 07/09/19 hydralazine 50 mg PO TID 07/09/18 07/09/19 diclofenac sodium 1 % topical gel 1 gram TOP .PRN gram 07/21/19 finasteride 5 mg tablet 5 mg PO DAILY 08/14/19 sildenafil 100 mg tablet 100 mg PO DAILY PRN 08/14/19 metoprolol tartrate 25 mg tablet 12.5 mg PO DAILY tab 10/28/19 Previous Rx's Medication Instructions Recorded celecoxib 200 mg capsule 200 mg PO QDAY #90 cap 03/04/18 amlodipine 10 mg tablet 10 mg PO DAILY #90 tab 07/30/18 chlorthalidone 25 mg tablet 25 mg PO DAILY #90 tab 07/30/18 losartan 50 mg tablet 50 mg PO BID #180 tab 07/30/18 triamcinolone acetonide 0.5 % 1 applictn TOP TID #15 gram 10/30/19 topical cream cetirizine 10 mg tablet 10 mg PO QDAY PRN #90 tab 02/24/20 acyclovir 400 mg tablet 400 mg PO TID #21 tab 04/13/20 Allergies Allergy/AdvReac Type Severity Reaction Status Date / Time gabapentin AdvReac Severe States Verified 07/09/19 15:50 made him homicidal Review of Systems Constitutional Constitutional: Denies fever(s) Musculoskeletal Comments: Left ankle pain Integumentary/Breasts Comments: Swelling to left ankle Neurologic Neurologic: Denies sensory deficit Hematologic/Lymphatic Hematologic/Lymphatic: Denies easy bleeding and Denies easy bruising Allergic/Immunologic Allergic/Immunologic: Denies urticaria Patient History Medical History Anxiety about health (Acute) Atypical chest pain (Acute) Back pain (Acute) First degree atrioventricular block (Acute) Hand, open wound except fingers, with tendon injury (Acute) History of migraine headaches (Acute) Hx of sleep apnea (Acute) Hyperlipidemia (Chronic) Hypertension (Chronic) Overactive bladder (Acute) PAC (premature atrial contraction) (Acute) Radicular low back pain (Chronic) Sciatica (Acute) Surgical History (Updated 06/25/18 @ 10:18 by Lona Jiménez RN) History of arthroplasty of both knees (Acute) History of gastric bypass (Resolved 2005) S/P ankle ligament repair (Acute) Social History household members: spouse and children Smoking Status: Never smoker alcohol intake: current Smoking Status: Never smoker alcohol intake frequency: a few times a week Substance Use Type: does not use Exam Initial Vital Signs Initial Vital Signs: Vital Signs Temperature 98 F 06/30/20 22:36 Pulse Rate 62 06/30/20 22:36 Respiratory Rate 22 06/30/20 22:36 Blood Pressure 158/80 H 06/30/20 22:36 Pulse Oximetry 98 06/30/20 22:36 Const General: cooperative and comfortable Cardio Pulses: dorsalis pedis present on the left Skin Other: Small amount of bruising distal aspect of lateral malleolus Neuro Sensory Exam: no sensory deficits noted Extrem Other: Tender to palpation lateral aspect and anterior aspect of left ankle. Achilles is intact. Proximal fibula is intact. Left midfoot and forefoot unremarkable. Medial malleolus unremarkable. Psych Appearance: grossly normal and well kempt Procedures Orthopedic Splinting/Casting Injury #1: Side: left Lower Extremity Injury Location: ankle Lower Extremity Immobilizer: Vickey wrap Other Orthopedic Equipment: crutches Post splinting neuro exam: no change Post splinting vascular exam: no change Placed by: Nursing Course Orders Ordered: ED Orders 06/30/20 22:39 XR ankle LT min 3V Stat Discontinued Medications Hydrocodone Bitart/Acetaminophen ([place] 5/325) 1 tab PO NOW ONE Stop: 07/01/20 00:14 Last Admin: 07/01/20 00:27 Dose: 1 tab Documented by: SHELBI Hydrocodone Bitart/Acetaminophen (Vicodin 5/325 Prepack) 1 bottle MISC SEEINSTR ONE Stop: 07/01/20 00:14 Last Admin: 07/01/20 00:28 Dose: 1 bottle Documented by: SHELBI Vital Signs Vital signs: Vital Signs - 8 hr 06/30/20 22:36 07/01/20 00:34 Temperature 98 F Pulse Rate 62 68 Respiratory Rate 22 18 Blood Pressure 158/80 H 140/70 Pulse Oximetry 98 99 MDM - Extremity Injury (Lower) Imaging Data Extremity x-ray #1: Radiologist's Impression: Soft tissue swelling with apparent joint effusion but no fracture event MDM Narrative Medical decision making narrative: Neurovascularly intact, no fractures on the x-ray. I did discuss with the patient regarding the x-ray findings and the fact that there still could be a ligamentous injury. Provided Vickey bandage and crutches for comfort. He was given return precautions and follow-up instructions. He expressed understanding and agreement. Discharge Plan Departure Patient Disposition: Home Clinical Impression: Ankle sprain and strain Discharge Date/Time: 07/01/20 00:36 Instructions: DI for Ankle Sprain, How To Perform RICE (Rest, Ice, Compress, Elevate), How to Apply an Elastic Wrap on Ankle Activity Restrictions/Additional Instructions: There were no fractures on the x-rays see you can walk on your left leg as tolerated. Recommend that you keep your foot elevated can use the ice like we discussed. Recommend you contact your primary provider for follow-up. Return to the emergency department for any new or worsening symptoms Prescriptions: No Action CALCIUM CARBONATE (Calcium Carbonate) 500 mg PO DAILY Qty: 0 RF: 0 CYANOCOBALAMIN (VITAMIN B-12) (Vitamin B-12) 1 tab PO DAILY Qty: 0 RF: 0 amlodipine 10 mg tablet 10 mg PO DAILY Qty: 90 RF: 1 chlorthalidone 25 mg tablet 25 mg PO DAILY Qty: 90 RF: 1 losartan 50 mg tablet 50 mg PO BID Qty: 180 RF: 1 diclofenac sodium [Voltaren] 1 % gel 1 gram TOP .PRN RF: 0 finasteride 5 mg tablet 5 mg PO DAILY RF: 0 sildenafil [Viagra] 100 mg tablet 100 mg PO DAILY PRNRF: 0 metoprolol tartrate 25 mg tablet 12.5 mg PO DAILY RF: 0 triamcinolone acetonide 0.5 % cream 1 applictn TOP TID Qty: 15 RF: 5 cetirizine 10 mg tablet 10 mg PO QDAY PRN (Reason: allergies) Qty: 90 RF: 3 acyclovir 400 mg tablet 400 mg PO TID Qty: 21 RF: 5 celecoxib [Celebrex] 200 mg capsule 200 mg PO QDAY Qty: 90 RF: 1 tamsulosin 0.4 mg Capsule 0.4 mg PO BID RF: 0 flecainide 50 mg Tablet 50 mg PO BID RF: 0 hydralazine 50 mg Tablet 50 mg PO TID RF: 0 Referrals: Sg Beavers MD [Primary Care Provider] - Stand Alone Forms: Work Release Note
[2020-07-01] MEDS: HYDROCODONE/ACET 5/325 TABLET 1 TAB PO (00:27)
[2020-07-01] MEDS: HYDROCODONE/ACET 5/325 PREPACK 1 BOTTLE MISC (00:28)
[2020-07-01 00:34] VITALS: BP 140/70; PULSE 68; RESP 18; O2SAT 99
== END 2020-07-01 00:36 | disposition home or self-care (01) ==
PROVIDERS: Emergency Provider Emergency Medicine; Family Provider Student in an Organized Health Care Education/Training Program; PCP Student in an Organized Health Care Education/Training Program
DX: S93.402A Sprain of unspecified ligament of left ankle, initial encounter (principal); S96.912A Strain of unspecified muscle and tendon at ankle and foot level, left foot, initial encounter; W19.XXXA Unspecified fall, initial encounter
CPT/HCPCS: 73610; 99283; 99284

== ENCOUNTER → 2020-08-03 08:54 | Outpatient (CLI) | payer OTHER, SELFPAY ==
[2020-07-01 17:52] VITALS: BMI 30.9
[2020-08-03 10:47] LABS: Prostate Specific Antigen 1.16 ng/mL (0.10-4.00)
== END ==
PROVIDERS: Family Provider Student in an Organized Health Care Education/Training Program; PCP Student in an Organized Health Care Education/Training Program; Referring Provider Urology; Visit Provider Urology
DX: Z12.5 Encounter for screening for malignant neoplasm of prostate (principal)
CPT/HCPCS: 36415; 84153

== ENCOUNTER → 2020-09-29 14:41 | Outpatient (CLI) | payer OTHER, SELFPAY ==
[2020-07-01 17:52] VITALS: BMI 30.9
--- NOTE | 2020-09-29 | DI.ECHO.S_ITS ---
[place] +---------+ [facility] +---------+ : : [address] : [address] : : : : [phone] : : : : Phone: [phone]---------+ Echocardiogram Report + + :Name: PANTERA MORENO Study Date: 09/29/2020 Height: 72 in : :[facility] ReadingLocation: Weight: 200 lb : : Gender: Male BSA: 2.1 m2 : :: 1960 Age: 60 yrs BP: 141/94 mmHg: :Reason For Study: OTHER SPECIFIED DISORDERS OF ARTERIES AND : :ARTERIOLS : :Ordering Physician: BEE, : :CHIOMA Performed By: Ana Cancino : :Referring: CHIOMA GARCIA : + + Interpretation Summary 1) Normal left ventricular thickness, size, wall motion, and systoilc function (EF 60-65%). 2) Mildly enlarged right ventricle with normal function. 3) There is mild to moderate aortic regurgitation. 4) The aortic root is mildly dilated at 4.3cm. The aortic arch is mildly- moderately enlarged at 4.1cm. 5) Compared to the Echo done 08/17/2019, no significant change. Procedure: A two-dimensional transthoracic echocardiogram with color flow and Doppler was performed. The study quality was technically adequate. Comparison is made with the echocardiogram of 08/07/2019. The heart rate ranged between 47-72 bpm during the study. The patient had occasional PVCs during the exam. Left Ventricle: The left ventricle is normal in size. Left ventricular wall thickness is at the upper limits of normal. The ejection fraction is estimated to be 60-65%. Right Ventricle: The right ventricle is mildly dilated. The right ventricular systolic function is normal. Atria: The left atrium is severely dilated. The right atrium is severely dilated. There is no Doppler evidence for an interatrial shunt. Mitral Valve: The mitral valve is normal in structure and function. There is mild mitral regurgitation. Aortic Valve: The aortic valve opens well. There is no aortic valve stenosis. There is mild to moderate aortic regurgitation. Tricuspid Valve: The tricuspid valve is normal in structure and function. The right ventricular systolic pressure is estimated to be at least 33 mmHg based on an estimated right atrial pressure of 8 mm Hg. There is mild tricuspid regurgitation. Pulmonic Valve: The pulmonic valve is not well visualized. There is no pulmonic valvular regurgitation. Great Vessels: The aortic root is mildly dilated. The ascending aorta could not be visualized. The aortic arch is mild-moderately enlarged. The IVC is dilated (diameter is greater than 2.1 cm) yet it collapses greater than 50% with a sniff. This suggests a right atrial pressure of 8 mm Hg. Pericardium/ Pleura There is no pericardial effusion. There is no pleural effusion. MMode/2D Measurements & Calculations LVIDd: 5.8 cm LVOT diam: 2.5 cm LVIDs: 3.6 cm Ao root diam: 4.3 cm FS: 37.7 % Ao Arch Diam (Prox Trans): 4.1 cm EPSS: 0.42 cm IVSd: 0.98 cm LVPWd: 1.1 cm LV winn. diameter/BSA (cm/m^2): 2.7 LV sys. diameter/BSA (cm/m^2): 1.7 LA A2 area: 31.3 cm2 RA long axis: 6.2 cm LA A4 area: 29.4 cm2 RA area: 27.5 cm2 LA length (vol): 6.2 cm RA vol: 103.6 ml LA vol: 126.2 ml RA : 48.6 ml/m2 LA vol index: 59.2 ml/m2 IVC diam: 2.1 cm RVD1 (basal): 4.2 cm TAPSE: 2.6 cm Doppler Measurements & Calculations Ao V2 max: 144.0 cm/sec LVOT Max García: 141.1 cm/sec Ao V2 mean: 97.2 cm/sec LV V1 max P.0 mmHg Ao max P.3 mmHg LV V1 VTI: 31.7 cm Ao mean P.5 mmHg RONAN(I,D): 5.1 cm2 Ao V2 VTI: 29.6 cm RONAN(V,D): 4.7 cm2 sev ratio: 1.1 RONAN indexed to BSA (cm^2/m^2): 2.4 AI P1/2t: 1017 msec AI dec slope: 137.7 cm/sec2 MV E max garcía: 61.3 cm/sec TR max garcía: 248.1 cm/sec MV A max garcía: 53.2 cm/sec TR max P.6 mmHg MV E/A: 1.2 PA V2 max: 71.9 cm/sec Med Peak E' García: 6.3 cm/sec PA V2 mean: 45.3 cm/sec E/E' med: 9.8 PA mean P.98 mmHg Lat Peak E' García: 10.9 cm/sec PA pr(Accel): 34.5 mmHg E/E' lat: 5.6 E/e' average: 7.7 MV dec time: 0.22 sec SV(LVOT): 151.7 ml Reading Physician:08:59 AM
== END ==
PROVIDERS: Family Provider Student in an Organized Health Care Education/Training Program; PCP Student in an Organized Health Care Education/Training Program; Referring Provider Internal Medicine Cardiovascular Disease; Visit Provider Internal Medicine Cardiovascular Disease
DX: I08.3 Combined rheumatic disorders of mitral, aortic and tricuspid valves (principal); I77.810 Thoracic aortic ectasia
CPT/HCPCS: 93306

== ENCOUNTER → 2020-10-28 08:44 | Outpatient (CLI) | payer OTHER, SELFPAY ==
[2020-07-01 17:52] VITALS: BMI 30.9
[2020-10-28 09:41] LABS: Add Manual Diff / Slide Review NO; Basophils Absolute Auto 100 /uL (0-100); Eosinophils Absolute Auto 300 /uL (0-450); Hematocrit 42.7 % (41-53); Lymphocytes Absolute Auto 1300 /uL (1100-4500); Lymphocytes Percent Auto 22.5 % (25-40); Mean Corpuscular HGB Conc 32.8 % (30-36); Mean Corpuscular Hemoglobin 30.7 PG (26-34); Mean Corpuscular Volume 93.7 fL (80-100); Monocytes Absolute Auto 600 /uL (0-900); Monocytes Percent Auto 10.5 % (3-14); Neutrophils Absolute Auto 3400 /uL (1500-7000); Platelet Count 254 X10^3/uL (150-400); Red Blood Cell Count 4.56 X10^6/uL (4.5-5.9); Red Cell Distribution Width 13.2 % (11.6-14.8); White Blood Cell Count 5.6 X10^3/uL (4.5-11.0)
[2020-10-28 10:02] LABS: BUN Creatinine Ratio 29.8 (6-22); Blood Urea Nitrogen 28 mg/dL (9-20); Calcium 8.7 mg/dL (8.4-10.2); Carbon Dioxide 31 mmol/L (22-32); Chloride 105 mmol/L (98-107); Cholesterol 162 mg/dL (140-199); Estimated Glomerular Filt Rate > 60.0 mL/min (>60); Glucose 93 mg/dL (70-100); HDL Cholesterol 87 mg/dL (40-60); HEMOLYSIS < 15 (0-50); LDL Cholesterol Calculated 60 mg/dL (<100); Potassium 4.2 mmol/L (3.4-5.1); Sodium 138 mmol/L (137-145); Triglycerides 75 mg/dL (35-150)
== END ==
PROVIDERS: Family Provider Student in an Organized Health Care Education/Training Program; PCP Student in an Organized Health Care Education/Training Program; Referring Provider Internal Medicine Cardiovascular Disease; Visit Provider Internal Medicine Cardiovascular Disease
DX: I10 Essential (primary) hypertension (principal); I47.1 Supraventricular tachycardia
CPT/HCPCS: 36415; 80048; 80061; 85025

== ENCOUNTER → 2020-11-08 13:38 | Outpatient (CLI) | payer OTHER, SELFPAY ==
[2020-07-01 17:52] VITALS: BMI 30.9
--- NOTE | 2020-11-08 13:47 | DI.CT.S_ITS ---
PROCEDURE: CT SINUS SCREEN WO CON INDICATIONS: Chronic sinusitis TECHNIQUE: Noncontrast 3.0 mm axial images acquired from the frontal sinuses to the mid-sella, with coronal and sagittal reformats. For radiation dose reduction, the following was used: automated exposure control, adjustment of mA and/or kV according to patient size. COMPARISON: None. FINDINGS: Image quality: Excellent. Maxillary Sinuses: No bony remodeling or destruction. There is mild bilateral maxillary sinus mucosal thickening. Ethmoid Air Cells: No bony remodeling or destruction. Sinuses are clear. Sphenoid Sinuses: No bony remodeling or destruction. Sinuses are clear. Frontal Sinuses: No bony remodeling or destruction. Mild left frontal sinus mucosal thickening. No right frontal sinus mucosal thickening. Ostiomeatal Complexes: Ostiomeatal complexes are partially opacified bilaterally No My cells. Miscellaneous: Visualized intra-orbital contents are normal. No haja bullosa or paradoxical turbinate curvature. Moderate rightward nasal septal deviation. IMPRESSION: 1. Mild frontal and maxillary sinus mucosal thickening. 2. Partial opacification of the bilateral ostiomeatal units. 3. Rightward nasal septal deviation. Dictated by: Thad Matos M.D. on 11/08/2020 at 15:12 Approved by: Thad Matos M.D. on 11/08/2020 at 15:13
== END ==
PROVIDERS: Family Provider Student in an Organized Health Care Education/Training Program; PCP Student in an Organized Health Care Education/Training Program; Referring Provider Family Medicine; Visit Provider Family Medicine
DX: J32.8 Other chronic sinusitis (principal); J34.2 Deviated nasal septum
CPT/HCPCS: 70486

== ENCOUNTER → 2020-12-19 13:46 | Outpatient (CLI) | payer OTHER, SELFPAY ==
[2020-12-15 14:35] VITALS: BMI 30.9
[2020-12-19 16:16] LABS: COVID19 -Nasal RAPID Negative (Negative)
== END ==
PROVIDERS: Family Provider Student in an Organized Health Care Education/Training Program; PCP Student in an Organized Health Care Education/Training Program; Visit Provider Student in an Organized Health Care Education/Training Program
DX: Z20.822 Contact with and (suspected) exposure to COVID-19 (principal)
CPT/HCPCS: 87635

== ENCOUNTER 2020-12-22 12:11 | Day surgery (SDC) | payer OTHER, SELFPAY ==
[2020-12-15 14:35] VITALS: BMI 30.9
[2020-12-22] VITALS (10 sets, daily range): BP systolic 120–142; BP diastolic 73–89; PULSE 46–74; RESP 12–16; TEMP 36.6–37; O2SAT 94–100; BMI 27.3
--- NOTE | 2020-12-22 14:07 | P.OP_ITS ---
Operative Date/Time/Diagnoses Date of procedure: 12/22/20 Time of procedure: 16:27 Pre-op diagnosis: Nasal airway obstruction, septal deviation, inferior turbinate hypertrophy, chronic rhinitis Post-op diagnosis: same Procedure & Clinicians Procedure: 1. Septoplasty 2. Inferior turbinate reduction via intramural cautery Same procedure as scheduled: Yes Indications: 60-year-old male with the above diagnoses incompletely managed with medical therapy presents for the above procedures. Following discussion of the material risks benefits complications and alternatives, he elected to proceed. I reviewed medical clearance from Dr. Beavers from 12/05, and cardiac clearance from Dr. Garcia described as low to intermediate risk, no updated testing necessary, recommended he continue his metoprolol and flecainide, per note 12/01/2020. Surgeon: Surya Lakhani Click Yes if Unassisted: Yes Anesthesia Type: General and Local Operative Notes Findings: 2-3+ right septal deviation, left caudal deviation with twisted caudal septum, improved once released from each septal flap. A single LEFT mid/posterior flap perforation, RIGHT flap intact. LEFT middle turbinate also reduced via IM cautery only. Closure Type: primary Specimen(s): none sent Estimated Blood Loss (mL): 50 Blood products transfused: none Procedure in detail: Following identification and confirmation of consent as well as preoperative Afrin nasal spray, the patient was brought to the operating room suite and placed in the supine position. General endotracheal anesthesia was administered. I infiltrated the septum widely bilaterally with 1% lidocaine 1 100,000 epinephrine followed by temporary packing with cotton with Afrin and 4% lidocaine. Following sterile prep and drape, the packing was removed and I performed a right nini-transfixion incision, elevated the right mucoperichon drial and mucoperiosteal flap. I disarticulated near the bony/cartilaginous junction and elevated the left mucoperiosteal flap. Deviated portions of the perpendicular plate of the ethmoid and vomer were resected. The residual quadrilateral cartilage was further straightened by trimming it inferiorly as well as reducing the maxillary crest. A 2 mm strip of cartilage paralleling the residual 1 cm dorsal and caudal strut was resected to further straighten the quadrilateral cartilage. The caudal strut was chronically twisted, straightened slightly by releasing it from both septal flaps. The hemitransfixion incision was closed with interrupted 5 0 chromic followed by a running 4 0 plain gut mattress suture to reapproximate the septal flaps. At case completion, 20/1000th of an inch silastic splints were placed bilaterally, sutured anteriorly with a single 4 0 nylon. The head of each inferior turbinate had been previously infiltrated with additional local anesthetic and a 25 gauge spinal needle was used to impale the length of the turbinate, with cautery on a setting of 15 activated on slow withdrawal over 2 passes, in addition the LEFT middle turbinate was treated. The turbinates were then outfractured. The procedure completed, sponge and needle counts were correct and the patient was extubated in the operating room and taken to recovery room in stable condition without known complication. Postoperative care: Nasal saline every hour while awake, Vaseline or Polysporin to the nostrils at all times, begin irrigations t.i.d. beginning pod 1. Humidifier at the bedside blowing on the face. Tylenol alternating with Advil for pain control, oxycodone if necessary for breakthrough pain. Complications: none Post-operative Condition: stable Disposition: same day surgery Plan for aftercare: Nasal saline every hour while awake, Afrin for any bleeding only. Begin irrigations with nasal saline tomorrow if desired, twice daily. Vaseline to the nostrils at all times, follow-up in 1 week for splint removal. No nose blowing or heavy lifting 2 weeks.
--- NOTE | 2020-12-22 14:07 | PM.PREOP ---
Pre-operative Note COVID-19 COVID-19 status: Negative Result date/Date tested (Pos, Neg/Pending): 12/19/20 Interval Note History & Physical reviewed/Exam performed by Physician: Yes Changes to H&P: No
[2020-12-22] MEDS: ACETAMINOPHEN 325 MG TABLET 975 MG PO (14:23)
[2020-12-22] MEDS: SCOPOLAMINE 1 PATCH TOP (14:23)
[2020-12-22] MEDS: OXYMETAZOLINE NASAL SPRAY 15 ML 2 SPRAYS NASAL ×2 (14:24→15:42)
[2020-12-22] MEDS: LACTATED RINGERS 1,000 ML 42 ML IV (14:24)
--- NOTE | 2020-12-22 15:35 | SUR.OPER ---
Supine on padded OR bed, head on pillow, bilalateral arms arm padded and tucked at side, legs uncrossed, safety belt at thigh, tape over blanket over lower legs .
[2020-12-22] MEDS: BACITRACIN 28 GM OINT 1 APPLIC TOP (15:42)
[2020-12-22] MEDS: LIDOCAINE 4% SOLN 50 ML 20 ML TOP (15:42)
[2020-12-22] MEDS: LIDOCAINE 1% W/EPI 20 ML INJ (15:43)
[2020-12-22] MEDS: fentaNYL 100 MCG/2 ML INJ IV ×2 (16:46→17:04)
[2020-12-22] MEDS: HYDROMORPHONE 2 MG INJ IV ×2 (16:55→17:08)
== END 2020-12-22 17:53 | disposition home or self-care (01) ==
PROVIDERS: Family Provider Student in an Organized Health Care Education/Training Program; PCP Student in an Organized Health Care Education/Training Program; Referring Provider Student in an Organized Health Care Education/Training Program; Visit Provider Otolaryngology
PROC: (CPT 30520; principal; 2020-12-22 13:15)
DX: J34.89 Other specified disorders of nose and nasal sinuses (principal); J34.2 Deviated nasal septum; J31.0 Chronic rhinitis; J34.3 Hypertrophy of nasal turbinates; E78.5 Hyperlipidemia, unspecified; I10 Essential (primary) hypertension; I49.1 Atrial premature depolarization
CPT/HCPCS: 30520; 30140; A9270; J1100; J1170; J2250; J2405; J2704; J3010

== ENCOUNTER → 2021-08-15 08:04 | Outpatient (CLI) | payer OTHER, SELFPAY ==
[2020-12-15 14:35] VITALS: BMI 30.9
[2021-08-15 10:31] LABS: Prostate Specific Antigen 0.787 ng/mL (0.10-4.00)
== END ==
PROVIDERS: Family Provider Student in an Organized Health Care Education/Training Program; PCP Student in an Organized Health Care Education/Training Program; Referring Provider Urology; Visit Provider Urology
DX: N40.0 Benign prostatic hyperplasia without lower urinary tract symptoms (principal)
CPT/HCPCS: 36415; 84153

== ENCOUNTER → 2021-10-31 09:50 | Outpatient (CLI) | payer OTHER, SELFPAY ==
[2020-12-15 14:35] VITALS: BMI 30.9
--- NOTE | 2021-10-31 | DI.CT.S_ITS ---
PROCEDURE: CT LUMBAR SPINE WO CON INDICATIONS: BACK PAIN TECHNIQUE: Noncontrast 3 mm thick sections acquired from the T12 level to the sacrum. Sagittal and coronal reformats were constructed. For radiation dose reduction, the following was used: automated exposure control. COMPARISON: [facility], CR, XR LUMBAR SPINE 2 OR 3 VIEWS, 08/15/2021, 9:05. [facility], CR, XR LUMBAR SPINE 2 OR 3 VIEWS, 07/23/2019, 9:31. [facility], CT, CT LUMBAR SPINE WO CON, 11/10/2018, 9:09. FINDINGS: Image quality: Excellent. Bones: Postsurgical changes compatible with L4-L5 and L5-S1 TLIF. Orthopedic hardware is in expected position. Orthopedic hardware is intact. Small 1-2 millimeter lucency noted adjacent to the right S1 transpedicular screw which is new compared to November 10, 2018 and is suspicious for loosening or infection. There is normal bony alignment. No acute vertebral body compression fractures. No suspicious lytic or blastic bony lesions. No pars defects. T12-L1: Disc height is normal. Anterior endplate osteophytosis. Mild bilateral facet hypertrophy. No central stenosis. No neural foraminal narrowing. No neural compression. L1-L2: Disc height is normal. Minimal, diffuse disc bulge. Mild bilateral facet hypertrophy. No central stenosis. Mild bilateral neural foraminal narrowing. No neural compression. L2-L3: Slight loss of disc height. Mild, diffuse disc bulge. Mild bilateral facet hypertrophy. Mild narrowing of the central canal. Mild right and moderate left neural foraminal narrowing. No neural compression. L3-L4: Slight loss of disc height. Moderate, diffuse disc bulge. [id number] bilateral facet hypertrophy. Mild to moderate narrowing of the central canal. Severe right and [id number] left neural foraminal narrowing with compression of the exiting right C3 nerve root. L4-L5: Status post fusion. Moderate right facet hypertrophy. No central stenosis. Mild bilateral neural foraminal narrowing. No neural compression. L5-S1: Status post fusion. Mild right facet hypertrophy. No central stenosis. Severe left neural foraminal narrowing with compression of the exiting left L5 nerve root. Soft tissues: No retroperitoneal masses or hematomas. Visualized aorta is normal in caliber. IMPRESSION: 1. Status post L4-S1 TLIF. 2. 1-2 millimeter lucency surrounding the right S1 transpedicular screw which is new compared to prior examination and is concerning for loosening or infection. 3. Multilevel degenerative disc disease. 4. No severe central canal narrowing. 5. Severe right L3-L4 neural foraminal narrowing with compression of the exiting right L3 nerve root. Severe left L5-S1 neural foraminal narrowing with compression of the exiting left L5 nerve root. Dictated by: Padmini Maurice MD, PhD on 10/31/2021 at 13:25 Approved by: Padmini Maurice MD, PhD on 10/31/2021 at 13:36
== END ==
PROVIDERS: Family Provider Student in an Organized Health Care Education/Training Program; PCP Student in an Organized Health Care Education/Training Program; Referring Provider Orthopaedic Surgery Orthopaedic Surgery of the Spine; Visit Provider Orthopaedic Surgery Orthopaedic Surgery of the Spine
DX: M48.061 Spinal stenosis, lumbar region without neurogenic claudication (principal); M51.36 Other intervertebral disc degeneration, lumbar region; M48.07 Spinal stenosis, lumbosacral region; Z98.1 Arthrodesis status
CPT/HCPCS: 72131

== ENCOUNTER → 2021-11-16 10:04 | Outpatient (CLI) | payer OTHER, SELFPAY ==
[2020-12-15 14:35] VITALS: BMI 30.9
--- NOTE | 2021-11-16 | DI.ECHO.S_ITS ---
[facility]---------+ [facility] +---------+ : : [address] : [place] : : : : [id number] : : : : Phone: [phone] +---------+ Echocardiogram Report + + :Name: PANTERA MORENO Study Date: 11/16/2021 Height: 72 in : :[facility] ReadingLocation: Weight: 215 lb : : Gender: Male BSA: 2.2 m2 : :: 1960 Age: 61 yrs BP: 158/98 mmHg: :Reason For Study: DISORDERS OF ARTERIES AND ARTERIOLS : :Ordering Physician: BEE, : :CHIOMA Performed By: Ana Cancino : :Referring: CHIOMA GARCIA : + + Interpretation Summary 1) Normal left ventricular size, wall motion, and systoilc function (EF 55- 60%). 2) Mildly enlarged right ventricle with normal function. 3) Severe biatrial enlargement. 4) There is mild to moderate aortic regurgitation. 5) The aortic root is mildly dilated at 4.2cm. Ascending aorta is mildly enlarged at 4.2cm. The aortic arch is mildly-moderately enlarged at 4.2cm. 6) Hypertension present during the study (BP 158/98mm Hg). 7) Compared to the Echo done 09/29/2020, no significant change. Procedure: A two-dimensional transthoracic echocardiogram with color flow and Doppler was performed. The study quality was technically adequate. Comparison is made with the echocardiogram of 09/29/2020. The patient was in sinus bradycardia with heart rates between 50-61 bpm during the exam. Left Ventricle: The left ventricle is normal in size. There is mild concentric left ventricular hypertrophy. The ejection fraction is estimated to be 55-60%. Left ventricular systolic function appears normal without focal wall motion abnormalities. Right Ventricle: The right ventricle is mildly dilated. The right ventricular systolic function is normal. Atria: The left atrium is severely dilated. The right atrium is severely dilated. There is no Doppler evidence for an interatrial shunt. Mitral Valve: The mitral valve is normal in structure and function. There is mild mitral annular calcification. There is trace mitral regurgitation. Aortic Valve: The aortic valve opens well. The aortic valve is trileaflet. There is no aortic valve stenosis. There is mild to moderate aortic regurgitation. Tricuspid Valve: The tricuspid valve is normal in structure and function. There is mild tricuspid regurgitation. Right ventricular systolic pressure is estimated to be 24 mmHg plus the clinically estimated CVP which cannot be estimated on this exam. Pulmonic Valve: The pulmonic valve leaflets are thin and pliable; valve motion is normal. Great Vessels: The aortic root is mildly dilated. The ascending aorta could not be visualized. The aortic arch is mild-moderately enlarged. Ascending aorta is mildly enlarged at 4.2cm. The inferior vena cava was not well visualized. Pericardium/ Pleura There is no pericardial effusion. There is no pleural effusion. MMode/2D Measurements & Calculations LVIDd: 5.2 cm LVOT diam: 2.5 cm LVIDs: 3.6 cm Ao root diam: 4.2 cm FS: 31.1 % Ao Arch Diam (Prox Trans): 4.4 cm IVSd: 1.1 cm LVPWd: 1.3 cm LV winn. diameter/BSA (cm/m^2): 2.4 LV sys. diameter/BSA (cm/m^2): 1.6 LA A2 area: 31.3 cm2 RA long axis: 5.9 cm LA A4 area: 26.9 cm2 RA area: 27.8 cm2 LA length (vol): 6.0 cm RA vol: 112.2 ml LA vol: 118.8 ml RA : 51.1 ml/m2 LA vol index: 54.1 ml/m2 RVD1 (basal): 4.7 cm RVD2 (mid): 3.9 cm TAPSE: 2.8 cm Doppler Measurements & Calculations Ao V2 max: 153.9 cm/sec LVOT Max García: 123.2 cm/sec Ao V2 mean: 107.9 cm/sec LV V1 max P.1 mmHg Ao max P.5 mmHg LV V1 VTI: 25.9 cm Ao mean P.2 mmHg RONAN(I,D): 3.7 cm2 Ao V2 VTI: 34.9 cm RONAN(V,D): 4.0 cm2 sev ratio: 0.74 RONAN indexed to BSA (cm^2/m^2): 1.7 AI P1/2t: 824.1 msec AI dec slope: 182.5 cm/sec2 MV E max garcía: 74.1 cm/sec TR max garcía: 244.2 cm/sec MV A max garcía: 56.0 cm/sec TR max P.9 mmHg MV E/A: 1.3 PA V2 max: 97.6 cm/sec Med Peak E' García: 5.4 cm/sec PA V2 mean: 67.8 cm/sec E/E' med: 13.6 PA mean P.1 mmHg Lat Peak E' García: 10.2 cm/sec PA pr(Accel): 32.8 mmHg E/E' lat: 7.2 E/e' average: 10.4 MV dec time: 0.20 sec SV(LVOT): 130.6 ml Reading Physician:01:24 PM
== END ==
PROVIDERS: Family Provider Student in an Organized Health Care Education/Training Program; PCP Student in an Organized Health Care Education/Training Program; Referring Provider Internal Medicine Cardiovascular Disease; Visit Provider Internal Medicine Cardiovascular Disease
DX: I77.810 Thoracic aortic ectasia (principal); I08.2 Rheumatic disorders of both aortic and tricuspid valves; I77.89 Other specified disorders of arteries and arterioles
CPT/HCPCS: 93306

== ENCOUNTER → 2021-11-21 08:07 | Outpatient (CLI) | payer OTHER, SELFPAY ==
[2020-12-15 14:35] VITALS: BMI 30.9
[2021-11-21 09:21] LABS: Add Manual Diff / Slide Review NO; Basophils Absolute Auto 0 /uL (0-100); Eosinophils Absolute Auto 300 /uL (0-450); Eosinophils Percent Auto 6.8 % (2-4); Hematocrit 41.1 % (41-53); Hemoglobin 14.1 g/dL (13.5-17.5); Lymphocytes Absolute Auto 1400 /uL (1100-4500); Lymphocytes Percent Auto 27.7 % (25-40); Mean Corpuscular HGB Conc 34.2 % (30-36); Mean Corpuscular Hemoglobin 31.9 PG (26-34); Mean Corpuscular Volume 93.3 fL (80-100); Monocytes Absolute Auto 500 /uL (0-900); Neutrophils Absolute Auto 2700 /uL (1500-7000); Neutrophils Percent Auto 54.5 % (50-75); Platelet Count 233 X10^3/uL (150-400); Red Cell Distribution Width 12.8 % (11.6-14.8); White Blood Cell Count 4.9 X10^3/uL (4.5-11.0)
[2021-11-21 09:39] LABS: BUN Creatinine Ratio 20.4 (6-22); Blood Urea Nitrogen 19 mg/dL (9-20); Carbon Dioxide 29 mmol/L (22-32); Chloride 105 mmol/L (98-107); Cholesterol 166 mg/dL (140-199); Estimated Glomerular Filt Rate > 60.0 mL/min (>60); Glucose 88 mg/dL (80-110); HDL Cholesterol 101 mg/dL (40-60); HEMOLYSIS < 15 (0-50); LDL Cholesterol Calculated 52 mg/dL (<100); Potassium 4.2 mmol/L (3.4-5.1); Sodium 138 mmol/L (137-145); Triglycerides 64 mg/dL (35-150)
== END ==
PROVIDERS: Family Provider Student in an Organized Health Care Education/Training Program; PCP Student in an Organized Health Care Education/Training Program; Referring Provider Internal Medicine Cardiovascular Disease; Visit Provider Internal Medicine Cardiovascular Disease
DX: I10 Essential (primary) hypertension (principal)
CPT/HCPCS: 36415; 80048; 80061; 85025

== ENCOUNTER → 2022-09-27 07:02 | Outpatient (CLI) | payer OTHER, SELFPAY ==
[2020-12-15 14:35] VITALS: BMI 30.9
[2022-09-27 08:38] LABS: Prostate Specific Antigen 0.851 ng/mL (0.10-4.00)
== END ==
PROVIDERS: Family Provider Student in an Organized Health Care Education/Training Program; PCP Student in an Organized Health Care Education/Training Program; Referring Provider Urology; Visit Provider Urology
DX: Z12.5 Encounter for screening for malignant neoplasm of prostate (principal)
CPT/HCPCS: 36415; 84153

== ENCOUNTER → 2022-11-21 07:31 | Outpatient (CLI) | payer OTHER, SELFPAY ==
[2020-12-15 14:35] VITALS: BMI 30.9
[2022-11-21 08:27] LABS: Add Manual Diff / Slide Review NO; Basophils Absolute Auto 0 /uL (0-100); Basophils Percent Auto 0.7 % (0-2); Eosinophils Absolute Auto 300 /uL (0-450); Hemoglobin 14.5 g/dL (13.5-17.5); Lymphocytes Absolute Auto 1300 /uL (1100-4500); Lymphocytes Percent Auto 26.1 % (25-40); Mean Corpuscular HGB Conc 33.7 % (30-36); Mean Corpuscular Hemoglobin 31.2 PG (26-34); Mean Corpuscular Volume 92.4 fL (80-100); Monocytes Absolute Auto 600 /uL (0-900); Neutrophils Absolute Auto 2700 /uL (1500-7000); Neutrophils Percent Auto 55.2 % (50-75); Platelet Count 234 X10^3/uL (150-400); Red Blood Cell Count 4.66 X10^6/uL (4.5-5.9); Red Cell Distribution Width 13.4 % (11.6-14.8); White Blood Cell Count 4.9 X10^3/uL (4.5-11.0)
[2022-11-21 08:58] LABS: BUN Creatinine Ratio 21.4 (6-22); Blood Urea Nitrogen 21 mg/dL (9-20); Calcium 8.9 mg/dL (8.4-10.2); Carbon Dioxide 30 mmol/L (22-32); Chloride 103 mmol/L (98-107); Cholesterol 172 mg/dL (140-199); Estimated Glomerular Filt Rate > 60 mL/min (>60); Glucose 88 mg/dL (80-110); HDL Cholesterol 99 mg/dL (40-60); HEMOLYSIS < 15 (0-50); LDL Cholesterol Calculated 62 mg/dL (<100); Potassium 4.2 mmol/L (3.4-5.1); Sodium 136 mmol/L (137-145); Triglycerides 55 mg/dL (35-150)
== END ==
PROVIDERS: Family Provider Student in an Organized Health Care Education/Training Program; PCP Student in an Organized Health Care Education/Training Program; Referring Provider Internal Medicine Cardiovascular Disease; Visit Provider Internal Medicine Cardiovascular Disease
DX: I10 Essential (primary) hypertension (principal)
CPT/HCPCS: 36415; 80048; 80061; 85025

== ENCOUNTER → 2022-11-26 09:19 | Outpatient (CLI) | payer OTHER, SELFPAY ==
[2020-12-15 14:35] VITALS: BMI 30.9
--- NOTE | 2022-11-26 | DI.ECHO.S_ITS ---
[facility] +---------+ [facility] +---------+ : : [address] : [place] : : : : [id number] : : : : Phone: [phone] +---------+ Echocardiogram Report + + :Name: PANTERA MORENO Study Date: 11/26/2022 Height: 72 in : :[facility] ReadingLocation: Weight: 200 lb : : Gender: Male BSA: 2.1 m2 : :: 1960 Age: 62 yrs BP: 148/64 mmHg: :Reason For Study: AORTA ROOT ENLARGEMENT : :Ordering Physician: BEE, : :CHIOMA Performed By: Ana Cancino : :Referring: CHIOMA GARCIA : + + Interpretation Summary 1) MIldly enlarged left ventricular size with normal wall motion and normal systolic function (EF 55-60%). 2) Mildly enlarged right ventricle with normal function. 3) Severe left atrial enlargement. 4) There is mild to moderate aortic regurgitation. 5) The ascending aorta is mild-moderately enlarged (diameter 4.4cm). 6) Hypertension present during the study (BP 148/64mm Hg). 7) Compared to the Echo done 11/16/2021, ascending aorta enlargement has increased from mild to mild-moderate on this study (could be due to visualization). Procedure: A two-dimensional transthoracic echocardiogram with color flow and Doppler was performed. The study quality was technically adequate. Comparison is made with the echocardiogram of 11/16/2021. The heart rate ranged between 47-56 bpm during the study. The patient had frequent PACs during the exam. Left Ventricle: The left ventricle is mildly dilated. The estimated left ventricular end diastolic volume is 156 ml. Proximal septal thickening is noted. Left ventricular ejection fraction is estimated to be 55 +/- 5%. Right Ventricle: The right ventricle is mildly dilated. The right ventricular systolic function is normal. Atria: The left atrium is severely dilated. The right atrium is mildly dilated. There is no Doppler evidence for an interatrial shunt. Mitral Valve: There is mild mitral annular calcification. The mitral valve leaflets appear borderline thickened, but open well. There is mild mitral regurgitation. Aortic Valve: The aortic valve is trileaflet. The aortic valve opens well. There is no aortic valve stenosis. There is mild to moderate aortic regurgitation. Tricuspid Valve: The tricuspid valve leaflets are thin and pliable. There is mild tricuspid regurgitation. The right ventricular systolic pressure is estimated to be at least 26 mmHg based on an estimated right atrial pressure of 3 mm Hg. Pulmonic Valve: The pulmonic valve is normal in structure and function. There is a trace or physiologic amount of pulmonic regurgitation. Great Vessels: The aortic root is mildly dilated. The ascending aorta is mild-moderately enlarged. The aortic arch is mild-moderately enlarged. The IVC is of normal diameter and collapses greater than 50% with a sniff. This suggests a low right atrial pressure of 3 mm Hg. Pericardium/ Pleura There is no pericardial effusion. There is no pleural effusion. MMode/2D Measurements & Calculations LVIDd: 6.0 cm LVOT diam: 2.4 cm LVIDs: 4.0 cm Ao root diam: 4.1 cm FS: 32.9 % asc Aorta Diam: 4.4 cm IVSd: 0.80 cm Ao Arch Diam (Prox Trans): 3.2 cm LVPWd: 0.98 cm LV winn. diameter/BSA (cm/m^2): 2.8 LV sys. diameter/BSA (cm/m^2): 1.9 LA A2 area: 29.0 cm2 RA long axis: 6.1 cm LA A4 area: 24.8 cm2 RA area: 23.2 cm2 LA length (vol): 6.1 cm RA vol: 75.0 ml LA vol: 99.8 ml RA : 35.2 ml/m2 LA vol index: 46.8 ml/m2 IVC diam: 2.0 cm RVD1 (basal): 4.5 cm RVD2 (mid): 3.5 cm TAPSE: 2.2 cm Doppler Measurements & Calculations Ao V2 max: 145.3 cm/sec LVOT Max García: 124.3 cm/sec Ao V2 mean: 98.9 cm/sec LV V1 max P.2 mmHg Ao max P.4 mmHg LV V1 VTI: 28.5 cm Ao mean P.6 mmHg RONAN(I,D): 4.0 cm2 Ao V2 VTI: 32.0 cm RONAN(V,D): 3.9 cm2 sev ratio: 0.89 RONAN indexed to BSA (cm^2/m^2): 1.9 AI P1/2t: 1041 msec AI dec slope: 145.7 cm/sec2 MV E max garcía: 59.3 cm/sec TR max garcía: 240.5 cm/sec MV A max garcaí: 38.9 cm/sec TR max P.1 mmHg MV E/A: 1.5 Med Peak E' García: 5.0 cm/sec E/E' med: 11.9 Lat Peak E' García: 8.5 cm/sec E/E' lat: 7.0 E/e' average: 9.4 MV dec time: 0.22 sec SV(LVOT): 128.5 ml Reading Physician:08:52 PM
== END ==
PROVIDERS: Family Provider Student in an Organized Health Care Education/Training Program; PCP Student in an Organized Health Care Education/Training Program; Referring Provider Internal Medicine Cardiovascular Disease; Visit Provider Internal Medicine Cardiovascular Disease
DX: I08.3 Combined rheumatic disorders of mitral, aortic and tricuspid valves (principal); I77.89 Other specified disorders of arteries and arterioles; I77.810 Thoracic aortic ectasia
CPT/HCPCS: 93306

== ENCOUNTER → 2022-12-31 16:03 | Outpatient (CLI) | payer OTHER, SELFPAY ==
[2020-12-15 14:35] VITALS: BMI 30.9
--- NOTE | 2022-12-31 16:09 | DI.RAD.S_ITS ---
PROCEDURE: XR SHOULDER RT MIN 2V INDICATIONS: Pain TECHNIQUE: 3 views of the shoulder were acquired. COMPARISON: None. FINDINGS: Bones: No fractures or dislocations. No suspicious bony lesions. Visualized ribs appear intact. Soft tissues: No suspicious soft tissue calcifications. IMPRESSION: Unremarkable right shoulder radiographs Approved by: Camron Cordoba M.D. on 12/31/2022 at 17:02
== END ==
PROVIDERS: Family Provider Student in an Organized Health Care Education/Training Program; PCP Student in an Organized Health Care Education/Training Program; Referring Provider Nurse Practitioner Family; Visit Provider Nurse Practitioner Family
DX: S46.911A Strain of unspecified muscle, fascia and tendon at shoulder and upper arm level, right arm, initial encounter (principal)
CPT/HCPCS: 73030

== ENCOUNTER → 2023-06-17 13:01 | Outpatient (CLI) | payer OTHER, SELFPAY ==
[2023-01-01 08:22] VITALS: BMI 30.9
--- NOTE | 2023-06-17 | DI.RAD.S_ITS ---
PROCEDURE: XR LUMBAR SPINE 2-3V INDICATIONS: Spinal stenosis, lumbosacral region TECHNIQUE: 3 views of the lumbar spine were acquired. COMPARISON: [facility], CR, XR LUMBAR SPINE 2-3V, 07/09/2018, 10:24. FINDINGS: Bones: L4-5 and L5-S1 interbody fusion with posterior pebbles and screw instrumentation. Vertebral body height and alignment is maintained. Upper lumbar spine disc space narrowing and mild hypertrophic facet joints present. No evidence of hardware failure or loosening. Flexion and extension imaging shows no evidence of segmental instability Soft tissues: Overlying bowel gas pattern is normal. No suspicious soft tissue calcifications. IMPRESSION: L4-5 and L5-S1 instrumented interbody fusion without instability Approved by: Camron Cordoba M.D. on 06/17/2023 at 15:39
== END ==
PROVIDERS: Family Provider Student in an Organized Health Care Education/Training Program; Referring Provider Orthopaedic Surgery Orthopaedic Surgery of the Spine; Visit Provider Orthopaedic Surgery Orthopaedic Surgery of the Spine
DX: M47.26 Other spondylosis with radiculopathy, lumbar region (principal); M48.07 Spinal stenosis, lumbosacral region; T84.498A Other mechanical complication of other internal orthopedic devices, implants and grafts, initial encounter
CPT/HCPCS: 72100

== ENCOUNTER → 2023-07-16 11:44 | Outpatient (CLI) | payer OTHER, SELFPAY ==
[2023-01-01 08:22] VITALS: BMI 30.9
== END ==
LOC: LAB 11:45
PROVIDERS: Family Provider Student in an Organized Health Care Education/Training Program; Referring Provider Orthopaedic Surgery Orthopaedic Surgery of the Spine; Visit Provider Orthopaedic Surgery Orthopaedic Surgery of the Spine
DX: M43.17 Spondylolisthesis, lumbosacral region (principal)
CPT/HCPCS: 80307

== ENCOUNTER → 2023-10-08 10:17 | Outpatient (CLI) | payer OTHER, SELFPAY ==
[2023-01-01 08:22] VITALS: BMI 30.9
[2023-10-08 13:04] LABS: Prostate Specific Antigen 0.884 ng/mL (0.10-4.00)
== END ==
LOC: LAB 10:19
PROVIDERS: Family Provider Student in an Organized Health Care Education/Training Program; Referring Provider Physician Assistant Medical; Visit Provider Physician Assistant Medical
DX: Z12.5 Encounter for screening for malignant neoplasm of prostate (principal); R39.9 Unspecified symptoms and signs involving the genitourinary system
CPT/HCPCS: 36415; 84153

== ENCOUNTER → 2023-10-28 08:06 | Outpatient (CLI) | payer OTHER, SELFPAY ==
[2023-01-01 08:22] VITALS: BMI 30.9
--- NOTE | 2023-10-28 08:30 | DI.MRI.S_ITS ---
PROCEDURE: MR LUMBAR SPINE WO CON INDICATIONS: SPINAL STENOSIS TECHNIQUE: Noncontrast sagittal T1 spin echo and T2 fast echo, sagittal STIR, and T2 fast spin echo through the lumbar spine. In cases with scoliosis, additional coronal T2 fast spin echo may be performed. COMPARISON: [facility], MR, L-SPINE WITHOUT CONTRAST, 02/23/2013, 16:52. FINDINGS: Image quality: Suboptimal due to metallic artifact. Hardware: Posterior and interbody surgical fusion L4 through S1. Alignment and Curvature: There is normal bony alignment. Bone Marrow: Marrow is of normal overall signal. No acute vertebral body compression fractures. Spinal Cord: Conus medullaris terminates at the L1 level. Visualized cord demonstrates normal signal and size. Paraspinous Soft Tissues: No paravertebral masses. T12-L1: Normal appearance. L1-L2: Small facet effusions. L2-L3: Broad-based disc bulge, small facet effusions. Mild left neural foraminal narrowing. Mild facet hypertrophy. L3-L4: Asymmetric posterior, central to right extraforaminal disc bulge, small facet effusions, contacting the approaching L4 nerve roots (series 6, image 21). Possible tiny annular fissure. Moderate bilateral neural foraminal narrowing. L4-L5: Interbody disc spacer. Facets are obscured. L5-S1: Interbody disc spacer. Facets are obscured. IMPRESSION: Multilevel degenerative disc disease and facet arthrosis as above. Of note, there is an asymmetric disc bulge at L3-4, contacting the approaching L4 nerve roots on the right. Also present is moderate bilateral neural foraminal narrowing at this level. Dictated by: Darryl House M.D. on 10/28/2023 at 10:01 Approved by: Darryl House M.D. on 10/28/2023 at 10:07
== END ==
LOC: MRI 08:07
PROVIDERS: Family Provider Student in an Organized Health Care Education/Training Program; Referring Provider Orthopaedic Surgery Orthopaedic Surgery of the Spine; Visit Provider Orthopaedic Surgery Orthopaedic Surgery of the Spine
DX: M48.062 Spinal stenosis, lumbar region with neurogenic claudication (principal); M51.36 Other intervertebral disc degeneration, lumbar region; M47.816 Spondylosis without myelopathy or radiculopathy, lumbar region; M51.26 Other intervertebral disc displacement, lumbar region
CPT/HCPCS: 72148

== ENCOUNTER → 2024-01-02 07:37 | Outpatient (CLI) | payer OTHER, SELFPAY ==
[2023-01-01 08:22] VITALS: BMI 30.9
[2024-01-02 08:40] LABS: Add Manual Diff / Slide Review NO; Basophils Absolute Auto 100 /uL (0-100); Basophils Percent Auto 1.3 % (0-2); Eosinophils Absolute Auto 500 /uL (0-450); Eosinophils Percent Auto 8.1 % (2-4); Hematocrit 40.8 % (41-53); Hemoglobin 13.9 g/dL (13.5-17.5); Lymphocytes Absolute Auto 1500 /uL (1100-4500); Lymphocytes Percent Auto 26.8 % (25-40); Mean Corpuscular HGB Conc 34.1 % (30-36); Mean Corpuscular Hemoglobin 31.8 PG (26-34); Mean Corpuscular Volume 93.3 fL (80-100); Monocytes Absolute Auto 700 /uL (0-900); Monocytes Percent Auto 11.8 % (3-14); Neutrophils Absolute Auto 2900 /uL (1500-7000); Platelet Count 277 X10^3/uL (150-400); Red Blood Cell Count 4.38 X10^6/uL (4.5-5.9); Red Cell Distribution Width 13.2 % (11.6-14.8); White Blood Cell Count 5.6 X10^3/uL (4.5-11.0)
[2024-01-02 09:21] LABS: BUN Creatinine Ratio 27.7 (6-22); Blood Urea Nitrogen 26 mg/dL (9-20); Carbon Dioxide 25 mmol/L (22-32); Chloride 109 mmol/L (98-107); Cholesterol 167 mg/dL (140-199); Estimated Glomerular Filt Rate > 60 mL/min (>60); Glucose 92 mg/dL (80-110); HDL Cholesterol 92 mg/dL (40-60); HEMOLYSIS < 15 (0-50); LDL Cholesterol Calculated 61 mg/dL (<100); Potassium 4.2 mmol/L (3.4-5.1); Sodium 139 mmol/L (137-145); Triglycerides 68 mg/dL (35-150)
--- NOTE | 2024-01-02 14:56 | DI.ECHO.S_ITS ---
[facility] +---------+ [facility] : : [address] : : [place] : : [id number] : : Phone: [phone] Echocardiogram Report + + :Name: PANTERA MORENO Study Date: 01/02/2024 Height: 72 in : :[facility] ReadingLocation: Weight: 215 lb : : Gender: Male BSA: 2.2 m2 : :: 1960 Age: 63 yrs BP: 128/78 mmHg: :Reason For Study: AORTIC ROOT ENLARGEMENT : :Ordering Physician: BEE, : :CHIOMA Performed By: Wander Alves : :Referring: CHIOMA GARCIA : + + Interpretation Summary 1) Normal left ventricular size, wall motion, and systolic function (EF 60- 65%). 2) Normal right ventricular size and function. 3) Severe left atrial enlargement. 4) There is mild to moderate aortic regurgitation. 5) The ascending aorta is mild-moderately enlarged (diameter 4.4cm). 6) Compared to the Echo done 11/26/2022, LV enlarged has decreased from mild to normal on this study. Procedure: A two-dimensional transthoracic echocardiogram with color flow and Doppler was performed. The study quality was technically adequate. Comparison is made with the echocardiogram of 11/26/2022. HECTORINY. The heart rate ranged between 57-64 bpm during the study. Left Ventricle: The left ventricle is normal in size and wall thickness. Proximal septal thickening is noted. The ejection fraction is estimated to be 60-65%. Left ventricular systolic function appears normal without focal wall motion abnormalities. Right Ventricle: The right ventricle is normal in size and function. Atria: The left atrium is severely dilated. The right atrium is moderate to severely dilated. The interatrial septum grossly appears intact with no obvious evidence for an atrial septal defect. Mitral Valve: The mitral valve is normal in structure and function. There is no mitral valve stenosis. There is trace mitral regurgitation. Aortic Valve: The aortic valve is grossly normal. There is no aortic valve stenosis. There is mild to moderate aortic regurgitation. Tricuspid Valve: The tricuspid valve is normal in structure and function. There is no tricuspid stenosis. No tricuspid regurgitation. Pulmonic Valve: The pulmonic valve is not well visualized. There is no pulmonic valvular stenosis. There is no pulmonic valvular regurgitation. Great Vessels: The aortic root is mildly dilated. ASC AO NOT WELL VISUALIZED, EST 4.3. The inferior vena cava was not visualized. Pericardium/ Pleura There is no pericardial effusion. There is no pleural effusion. MMode/2D Measurements & Calculations LVIDd: 5.1 cm LVOT diam: 2.8 cm LVIDs: 3.3 cm Ao root diam: 4.4 cm FS: 34.8 % asc Aorta Diam: 2.2 cm IVSd: 1.2 cm Ao Arch Diam (Prox Trans): 3.5 cm LVPWd: 1.0 cm LV winn. diameter/BSA (cm/m^2): 2.3 LV sys. diameter/BSA (cm/m^2): 1.5 LA A2 area: 33.0 cm2 RA long axis: 5.8 cm LA A4 area: 36.0 cm2 RA area: 23.0 cm2 LA length (vol): 6.5 cm RA vol: 77.5 ml LA vol: 155.5 ml RA : 35.3 ml/m2 LA vol index: 70.8 ml/m2 RVD1 (basal): 3.9 cm RVD2 (mid): 3.0 cm TAPSE: 3.2 cm Doppler Measurements & Calculations Ao V2 max: 186.6 cm/sec LVOT Max García: 145.5 cm/sec Ao V2 mean: 123.5 cm/sec LV V1 max P.5 mmHg Ao max P.1 mmHg LV V1 VTI: 35.1 cm Ao mean P.3 mmHg RONAN(I,D): 5.0 cm2 Ao V2 VTI: 41.7 cm RONAN(V,D): 4.7 cm2 sev ratio: 0.84 RONAN indexed to BSA (cm^2/m^2): 2.3 AI P1/2t: 785.4 msec AI dec slope: 191.7 cm/sec2 MV E max garcía: 76.6 cm/sec PA V2 max: 108.8 cm/sec MV A max garcía: 48.5 cm/sec PA V2 mean: 79.0 cm/sec MV E/A: 1.6 PA mean P.8 mmHg Med Peak E' García: 8.7 cm/sec PA pr(Accel): 27.6 mmHg E/E' med: 8.8 Lat Peak E' García: 9.1 cm/sec E/E' lat: 8.4 E/e' average: 8.6 MV dec time: 0.20 sec SV(LVOT): 210.1 ml Reading Physician:12:47 PM
== END ==
LOC: ECHO 07:38
PROVIDERS: Family Provider Student in an Organized Health Care Education/Training Program; Referring Provider Internal Medicine Cardiovascular Disease; Visit Provider Internal Medicine Cardiovascular Disease
DX: I35.1 Nonrheumatic aortic (valve) insufficiency (principal); I77.89 Other specified disorders of arteries and arterioles; I77.810 Thoracic aortic ectasia; I10 Essential (primary) hypertension
CPT/HCPCS: 36415; 80048; 80061; 85025; 93306

== ENCOUNTER → 2024-03-10 08:57 | Outpatient (CLI) | payer OTHER, SELFPAY ==
[2023-01-01 08:22] VITALS: BMI 30.9
[2024-03-10 10:28] LABS: Hemoglobin A1C% w Est Avg Glu 4.8 % (4.0-6.0)
[2024-03-10 10:45] LABS: Vitamin D 25 Hydroxy (D3) 29.6 ng/mL (30.0-100.0)
[2024-03-10 10:59] LABS: TSH w/ Reflex to FT4 1.32 uIU/mL (0.47-4.68)
[2024-03-10 11:09] LABS: Ferritin 60 ng/mL (18-464); Testosterone 625 ng/dL (71.8-623)
[2024-03-10 11:24] LABS: HIV 1 & 2 Ab/Ag 4th Gen Combo NEGATIVE (NEGATIVE); Hep C Virus Ab w/Reflex Quant NEGATIVE s/c (NEGATIVE); Vitamin B12 > 1000 pg/mL (239-931)
== END ==
PROVIDERS: Family Provider Student in an Organized Health Care Education/Training Program; PCP Family Medicine; Referring Provider Family Medicine; Visit Provider Family Medicine
DX: R53.82 Chronic fatigue, unspecified (principal); I10 Essential (primary) hypertension; Z98.84 Bariatric surgery status
CPT/HCPCS: 36415; 82306; 82607; 82728; 83036; 84403; 84443; 86803; 87389

== ENCOUNTER → 2024-05-26 11:05 | Outpatient (CLI) | payer OTHER, SELFPAY ==
[2023-01-01 08:22] VITALS: BMI 30.9
[2024-05-27 19:20] LABS: Prostate Specific Antigen 0.915 ng/mL (0.10-4.00)
== END ==
LOC: LAB 11:06
PROVIDERS: Family Provider Student in an Organized Health Care Education/Training Program; PCP Family Medicine; Referring Provider Physician Assistant Medical; Visit Provider Physician Assistant Medical
DX: Z12.5 Encounter for screening for malignant neoplasm of prostate (principal); R39.9 Unspecified symptoms and signs involving the genitourinary system
CPT/HCPCS: 36415; 84153

== ENCOUNTER → 2024-12-29 06:54 | Outpatient (CLI) | payer OTHER, SELFPAY ==
[2023-01-01 08:22] VITALS: BMI 30.9
--- NOTE | 2024-12-29 06:55 | DI.ECHO.S_ITS ---
[facility] +---------+ Hospital : : [address] : : [place] : : [id number] : : Phone: [phone] Echocardiogram Report + + :Name: PANTERA MORENO Study Date: 12/29/2024 Height: 72 in : :[facility] ReadingLocation: Weight: 220 lb : : Gender: Male BSA: 2.2 m2 : :: 1960 Age: 64 yrs BP: 154/90 mmHg: :Reason For Study: Aortic root enlargment : :Ordering Physician: BEE, : :CHIOMA Performed By: Stephan Tran : :Referring: CHIOMA GARCIA : + + Interpretation Summary 1) Normal left ventricular thickness, size, wall motion, and systolic function (EF 60-65%). 2) Mildly enlarged right ventricle with normal function. 3) There is mild mitral regurgitation. There is mild (or perhaps mild- moderate) aortic regurgitation. 4) The aortic root is mildly dilated at 4.3cm. 5) Compared to the echo done 01/02/2024, no significant change. Procedure: A two-dimensional transthoracic echocardiogram with color flow and Doppler was performed. The study quality was technically adequate. Comparison is made with the echocardiogram of 01/02/2024. The patient was in a bradycardic rhythm during the exam. The heart rate ranged between 57-60 bpm during the study. Left Ventricle: The left ventricle is normal in size. Left ventricular wall thickness is normal. Proximal septal thickening is noted. There is no echo evidence for significant left ventricular outflow tract obstruction. Left ventricular systolic function is normal. The ejection fraction is estimated to be 60-65%. There are no focal wall motion abnormalities. Diastolic parameters suggest a pseudonormalization pattern, consistent with probable elevated filling pressures. Right Ventricle: The right ventricle is mildly dilated. The right ventricular systolic function is normal. Atria: The left atrium is moderately dilated. The right atrium is normal in size. Mitral Valve: The mitral valve leaflets appear to open well. There is systolic anterior motion of the chordal apparatus. There is no mitral valve stenosis. There is mild mitral regurgitation. Aortic Valve: The aortic valve is trileaflet. The aortic valve opens well. There is mild aortic valve sclerosis. There is no aortic valve stenosis. There is mild aortic regurgitation. Tricuspid Valve: The tricuspid valve leaflets are thin and pliable. There is mild tricuspid regurgitation. The right ventricular systolic pressure is estimated to be at least 27 mmHg based on an estimated right atrial pressure of 3 mm Hg. Pulmonic Valve: The pulmonic valve is not well visualized. There is a trace or physiologic amount of pulmonic regurgitation. Great Vessels: The aortic root is mildly dilated. This is unchanged compared to the previous study. The ascending aorta could not be visualized. The aortic arch is normal in size. The pulmonary is not well visualized. The IVC is of normal diameter and collapses greater than 50% with a sniff. This suggests a low right atrial pressure of 3 mm Hg. Pericardium/ Pleura There is no pericardial effusion. MMode/2D Measurements & Calculations LVIDd: 5.3 cm LVOT diam: 2.5 cm LVIDs: 3.5 cm Ao root diam: 4.3 cm FS: 33.8 % asc Aorta Diam: 4.0 cm EPSS: 0.38 cm Ao Arch Diam (Prox Trans): 3.8 cm IVSd: 1.3 cm LVPWd: 0.81 cm LV winn. diameter/BSA (cm/m^2): 2.4 LV sys. diameter/BSA (cm/m^2): 1.6 LA A2 area: 26.9 cm2 RA long axis: 5.1 cm LA A4 area: 24.4 cm2 RA area: 19.7 cm2 LA length (vol): 5.6 cm RA vol: 65.1 ml LA vol: 100.1 ml RA : 29.3 ml/m2 LA vol index: 45.1 ml/m2 IVC diam: 1.3 cm RVD1 (basal): 4.2 cm TAPSE: 2.6 cm Doppler Measurements & Calculations Ao V2 max: 183.8 cm/sec LVOT Max García: 141.1 cm/sec Ao V2 mean: 124.1 cm/sec LV V1 max P.0 mmHg Ao max P.5 mmHg LV V1 VTI: 27.9 cm Ao mean P.3 mmHg RONAN(I,D): 3.8 cm2 Ao V2 VTI: 36.8 cm RONAN(V,D): 3.8 cm2 sev ratio: 0.76 RONAN indexed to BSA (cm^2/m^2): 1.7 AI P1/2t: 571.2 msec AI dec slope: 255.2 cm/sec2 MV E max garcía: 74.5 cm/sec TR max garcía: 236.7 cm/sec MV A max garcía: 41.5 cm/sec TR max P.4 mmHg MV E/A: 1.8 PA pr(Accel): 37.9 mmHg Med Peak E' García: 7.3 cm/sec E/E' med: 10.2 Lat Peak E' García: 8.5 cm/sec E/E' lat: 8.8 E/e' average: 9.5 MV dec time: 0.22 sec SV(LVOT): 138.3 ml Reading Physician:04:42 PM
== END ==
LOC: ECHO 06:54
PROVIDERS: PCP Family Medicine; Referring Provider Internal Medicine Cardiovascular Disease; Visit Provider Internal Medicine Cardiovascular Disease
DX: I77.89 Other specified disorders of arteries and arterioles (principal); I08.3 Combined rheumatic disorders of mitral, aortic and tricuspid valves
CPT/HCPCS: 93306

== ENCOUNTER → 2025-01-05 08:27 | Outpatient (CLI) | payer OTHER, SELFPAY ==
[2023-01-01 08:22] VITALS: BMI 30.9
[2025-01-05 09:16] LABS: Hematocrit 42.8 % (41-53); Hemoglobin 14.5 g/dL (13.5-17.5); Mean Corpuscular HGB Conc 33.8 % (30-36); Mean Corpuscular Volume 94.4 fL (80-100); Platelet Count 259 X10^3/uL (150-400); Red Blood Cell Count 4.53 X10^6/uL (4.5-5.9); Red Cell Distribution Width 13.1 % (11.6-14.8); White Blood Cell Count 5.9 X10^3/uL (4.5-11.0)
[2025-01-05 09:42] LABS: BUN Creatinine Ratio 23.8 (6-22); Blood Urea Nitrogen 24 mg/dL (9-20); Calcium 9.4 mg/dL (8.4-10.2); Carbon Dioxide 27 mmol/L (22-32); Chloride 105 mmol/L (98-107); Cholesterol 183 mg/dL (140-199); Estimated Glomerular Filt Rate > 60 mL/min (>60); Glucose 94 mg/dL (70-99); HDL Cholesterol 100 mg/dL (40-60); HEMOLYSIS < 15 (0-50); LDL Cholesterol Calculated 70 mg/dL (<100); Potassium 4.5 mmol/L (3.4-5.1); Sodium 137 mmol/L (137-145); Triglycerides 64 mg/dL (35-150)
== END ==
PROVIDERS: PCP Family Medicine; Referring Provider Internal Medicine Cardiovascular Disease; Visit Provider Internal Medicine Cardiovascular Disease
DX: I10 Essential (primary) hypertension (principal)
CPT/HCPCS: 36415; 80048; 80061; 85027

== ENCOUNTER → 2025-01-19 10:04 | Outpatient (CLI) | payer OTHER, SELFPAY ==
[2023-01-01 08:22] VITALS: BMI 30.9
--- NOTE | 2025-01-19 10:13 | DI.CT.S_ITS ---
PROCEDURE: CT SOFT TISSUE NECK W CON INDICATIONS: throat pain, pharyngeal mass TECHNIQUE: After the administration of intravenous contrast, 3.0 mm axial sections acquired from the sella to the aortic arch. Additional oblique axial 3.0 mm sections acquired through the pharynx. 3 mm thick coronal and sagittal reformats were generated. For radiation dose reduction, the following was used: automated exposure control. COMPARISON: None. FINDINGS: Image quality: Excellent. Lymph nodes: No enlarged lymph nodes seen throughout the neck. Vessels: Visualized vasculature appears patent. Neck spaces: The nasopharynx, and pharynx demonstrate no mucosal lesions. There is a 1.3 x 1.1 x 1.5 centimeter mass involving the right base of the tongue extending into the right vallecula. The vocal cords, false vocal cords, pyriform sinuses and epiglottis all appear normal. There is a 2.3 x 1.7 x 2.2 centimeter low-density lesion with well-defined margins and no perceivable wall inferior and posterior to the right thyroid and medial to the right common carotid artery. No soft tissue swelling or edema noted adjacent to the lower right neck low-density lesion.. Glands: The parotid and submandibular glands appear normal. Thyroid gland is normal. Miscellaneous: Visualized brain and orbits appear normal. Lung apices appear clear. Superficial soft tissues appear normal. Bones: No suspicious bony lesions. Spine degenerative disc disease and facet arthropathy. Visualized sinuses and mastoids appear unremarkable. IMPRESSION: 1.3 x 1.1 x 1.5 centimeter right tongue base mass which extends into the right vallecula. Neoplastic process is not excluded. Recommend correlate with direct visualization. 2.3 x 1.7 x 2.2 centimeter cystic lesion inferior to the right lobe of the thyroid gland. Lesion has nonspecific imaging characteristics but likely diagnostic considerations include parathyroid cyst, brachial cleft cyst in an atypical location and cystic lymph node. Recommend ultrasound evaluation to exclude any associated solid component. No lymphadenopathy based on size criteria. Dictated by: Padmini Maurice MD, PhD on 01/19/2025 at 12:25 Approved by: Padmini Maurice MD, PhD on 01/19/2025 at 12:39
== END ==
LOC: CT 10:05
PROVIDERS: PCP Family Medicine; Referring Provider Otolaryngology; Visit Provider Otolaryngology
DX: R07.0 Pain in throat (principal); J39.2 Other diseases of pharynx; R93.89 Abnormal findings on diagnostic imaging of other specified body structures
CPT/HCPCS: 70491; Q9967

== ENCOUNTER → 2025-01-28 08:17 | Outpatient (CLI) | payer OTHER, SELFPAY ==
[2023-01-01 08:22] VITALS: BMI 30.9
--- NOTE | 2025-01-28 08:18 | DI.US.S_ITS ---
PROCEDURE: US THYROID INDICATIONS: FOLLOW UP CT TECHNIQUE: Real-time scanning was performed of the thyroid gland, with image documentation. COMPARISON: [facility], CT, CT SOFT TISSUE NECK W CON, 01/19/2025, 10:12. FINDINGS: Inferior lateral to the right thyroid lobe there is a 5 focus of decreased echogenicity measuring 1.9 x 2.0 x 1.9 cm. This corresponds to CT abnormality. No adenopathy. Right thyroid lobe measures 5.6 x 1.9 x 2.1 cm. Left thyroid lobe measures 5.5 x 1.1 x 1.1 cm. Isthmus measures 3.1 mm. IMPRESSION: Cystic focus inferior lateral to the right thyroid lobe. Given base of tongue findings on CT, cystic malignant lymph node cannot be definitively excluded. Other etiologies could include brachial cyst. ACR TI-RADS definitions and recommendations: TI-RADS 1 (benign): 0 points. FNA not needed. TI-RADS 2 (not suspicious): 2 points. FNA not needed. TI-RADS 3: 3 points. * FNA if 2.5 cm or larger, follow up if 1.5 cm or larger (at 1, 3, and 5 years). TI-RADS 4: 4-6 points. * FNA if 1.5 cm or larger, follow up if 1 cm or larger (at 1, 2, 3, and 5 years). TI-RADS 5: 7 points or more. * FNA if 1 cm or larger, follow up if 0.5 cm or larger (every year for 5 years). Dictated by: Kathrine Carreon M.D. on 01/28/2025 at 12:50 Approved by: Kathrine Carreon M.D. on 01/28/2025 at 12:53
== END ==
PROVIDERS: PCP Family Medicine; Referring Provider Family Medicine; Visit Provider Family Medicine
DX: R07.0 Pain in throat (principal); R93.89 Abnormal findings on diagnostic imaging of other specified body structures
CPT/HCPCS: 76536

== ENCOUNTER → 2025-02-03 15:30 | Outpatient (CLI) | payer OTHER, SELFPAY ==
[2023-01-01 08:22] VITALS: BMI 30.9
[2025-02-03 16:05] LABS: Add Manual Diff / Slide Review NO; Basophils Absolute Auto 100 /uL (0-100); Eosinophils Absolute Auto 300 /uL (0-450); Eosinophils Percent Auto 5.3 % (2-4); Hematocrit 43.4 % (41-53); Hemoglobin 14.7 g/dL (13.5-17.5); Lymphocytes Absolute Auto 1500 /uL (1100-4500); Lymphocytes Percent Auto 23.3 % (25-40); Mean Corpuscular HGB Conc 33.8 % (30-36); Mean Corpuscular Hemoglobin 31.9 PG (26-34); Mean Corpuscular Volume 94.4 fL (80-100); Monocytes Absolute Auto 800 /uL (0-900); Monocytes Percent Auto 12.5 % (3-14); Neutrophils Absolute Auto 3800 /uL (1500-7000); Neutrophils Percent Auto 57.9 % (50-75); Platelet Count 276 X10^3/uL (150-400); Red Cell Distribution Width 12.8 % (11.6-14.8); White Blood Cell Count 6.6 X10^3/uL (4.5-11.0)
[2025-02-03 16:20] LABS: Erythrocyte Sedimentation Rate 3 MM/HR (0-15)
[2025-02-03 16:28] LABS: Alanine Aminotransferase 27 IU/L (<50); Albumin 4.3 g/dL (3.5-5.0); Albumin Globulin Ratio 1.9 (1.0-2.8); Alkaline Phosphatase 58 U/L (38-126); Aspartate Aminotransferase 36 IU/L (17-59); BUN Creatinine Ratio 22.4 (6-22); Bilirubin Total 0.4 mg/dL (0.2-1.3); Blood Urea Nitrogen 22 mg/dL (9-20); C-Reactive Protein Quant < 0.5 mg/dL (<1.0); Calcium 9.6 mg/dL (8.4-10.2); Carbon Dioxide 27 mmol/L (22-32); Chloride 105 mmol/L (98-107); Estimated Glomerular Filt Rate > 60 mL/min (>60); Globulin 2.3 g/dL (1.7-4.1); Glucose 83 mg/dL (70-99); HEMOLYSIS < 15 (0-50); Potassium 4.3 mmol/L (3.4-5.1); Sodium 139 mmol/L (137-145); Total Protein 6.6 g/dL (6.3-8.2)
[2025-02-03 16:37] LABS: Appearance Urine UA CLEAR; Bilirubin Urine UA NEGATIVE (NEGATIVE); Color Urine UA YELLOW; Glucose Urine UA NEGATIVE (Negative); Ketones Urine UA NEGATIVE (NEGATIVE); Leukocyte Esterase Urine UA NEGATIVE (NEGATIVE); Nitrite Urine UA NEGATIVE (Negative); Occult Blood Urine UA NEGATIVE (Negative); Protein Urine UA NEGATIVE (Negative); Urobilinogen Urine UA 0.2 E.U./dL (0.2); pH Urine UA 5.5 (4.5-8.0)
[2025-02-03 17:10] LABS: Bacteria Urine None Seen; RBC Urine None Seen (0-5/HPF); Squamous Epithelial Cell Urine None Seen (0-5/HPF); Urine Volume 10mL (spun); WBC Urine None Seen (0-5/HPF)
[2025-02-03 17:11] LABS: Culture Indicated Urine Cult Not Indicated
== END ==
PROVIDERS: Orthopaedic Surgery Orthopaedic Surgery of the Spine; PCP Family Medicine; Referring Provider Family Medicine; Visit Provider Family Medicine
DX: Z01.812 Encounter for preprocedural laboratory examination (principal); Z79.01 Long term (current) use of anticoagulants; D50.9 Iron deficiency anemia, unspecified; N39.0 Urinary tract infection, site not specified
CPT/HCPCS: 36415; 80053; 81001; 85025; 85651; 86140

== ENCOUNTER → 2025-02-10 14:31 | Outpatient (CLI) | payer OTHER, SELFPAY ==
[2023-01-01 08:22] VITALS: BMI 30.9
--- NOTE | 2025-02-10 | PATH_ITS ---
Note [facility] Accession Number: [id number] TESTS RESULT FLAG UNITS REF RANGE LAB Clinician Provided Cytology Information No. of containers..01 Other (Miscellaneous) Source: RIGHT INFERIOR NECK CYST DIAGNOSIS: RIGHT INFERIOR NECK CYST, FINE NEEDLE ASPIRATION. NEGATIVE FOR MALIGNANT CELLS. HYPOCELLULAR ASPIRATE AND MARKED DEGENERATION LIMITS EVALUATION. CLINICAL AND RADIOLOGIC CORRELATION RECOMMENDED TO ENSURE THAT THE AREA OF INTEREST HAS BEEN ADEQUATELY SAMPLED. REASPIRATION MAY BE CONSIDERED IF CLINICALLY WORRISOME. THIS INTERPRETATION INCLUDES EVALUATION OF A CELL BLOCK. Pathologist ICD10: 01 R22.1 Signed out by: Lila Suggs MD, Pathologist NPI- [id number] Performed by: Gregorio Ye, Dry Goods Clerk ([facility]) Gross description: 2 CC, PINK, CLOUDY RECEIVED: FRESH IN 10 ML SYRINGE.VO /VDU 02/11/2025 0556 Local FLAG LEGEND: L-Low Normal,H-High Normal,LL-Alert Low,HH-Alert High <-Panic Low,>-Panic High,A-Abnormal,AA-Critical Abnormal Performed at: 01 =Z [facility], [place] [address] Jacob Fitzgerald MD, Performed at: 01 [facility] [address] [place] [address] [address], [place], [place] [id number] MD Jacob Fitzgerald MD Phone: [phone]
--- NOTE | 2025-02-10 14:40 | DI.US.S_ITS ---
PROCEDURE: US FINE NEEDLE ASPIRATION INDICATIONS: NECK MASS TECHNIQUE: The indications, alternatives, benefits, risks, and complications of the procedure were explained to the patient. Written informed consent was obtained and placed in the chart. The area of interest was examined sonographically and a site was chosen for ultrasound guided percutaneous sampling. The skin was prepared and draped in the usual fashion, and anesthetized with 1% lidocaine infiltrated from the skin down to the lesion. A needle was advanced into the lesion and approximately 2 cc of chylous fluid was aspirated. A bandage was applied to the area of access at completion of the study. COMPARISON: None. FINDINGS: Location(s) of lesion(s) sampled: Inferior to the right thyroid [place]: 22 gauge hypodermic needle Specimen: Approximately 2 cc of chylous fluid was aspirated Medications: 1% lidocaine for local anaesthesia. Complications: None. IMPRESSION: Successful ultrasound-guided aspiration of a cystic structure inferior to the right thyroid gland resulting in approximately 2 cc of callus fluid, with cytology results pending. Dictated by: Anthony Rivero M.D. on 02/10/2025 at 16:54 Approved by: Anthony Rivero M.D. on 02/10/2025 at 16:56
== END ==
PROVIDERS: PCP Family Medicine; Visit Provider Radiology Diagnostic Radiology
DX: R22.1 Localized swelling, mass and lump, neck (principal)
CPT/HCPCS: 10005

== ENCOUNTER 2025-06-30 08:42 | Observation (INO) | payer OTHER, SELFPAY ==
[2023-01-01 08:22] VITALS: BMI 30.9
[2025-06-30] VITALS (16 sets, daily range): BP systolic 125–168; BP diastolic 67–90; PULSE 49–61; RESP 14–22; TEMP 36.1–36.6; O2SAT 77–100; BMI 28.5
--- NOTE | 2025-06-30 08:49 | EKG_ITS ---
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
--- NOTE | 2025-06-30 09:01 | DI.RAD.S_ITS ---
PROCEDURE: XR CHEST 1V INDICATIONS: Chest Pain TECHNIQUE: One view of the chest was acquired. COMPARISON: [facility], CR, XR CHEST 1V, 04/25/2018, 17:32. FINDINGS: Surgical changes and devices: None. Lungs and pleura: Lungs are clear. No pleural effusions or pneumothorax. Mediastinum: Mediastinal contours appear normal. Heart size is normal. Bones and chest wall: No suspicious bony lesions. Overlying soft tissues appear unremarkable. IMPRESSION: No acute cardiopulmonary abnormality is seen. Dictated by: Padmini Maurice MD, PhD on 06/30/2025 at 9:36 Approved by: Padmini Maurice MD, PhD on 06/30/2025 at 9:36
[2025-06-30 09:16] LABS: Add Manual Diff / Slide Review NO; Hematocrit 40.8 % (41-53); Hemoglobin 13.8 g/dL (13.5-17.5); Lymphocytes Absolute Auto 500 /uL (1100-4500); Mean Corpuscular HGB Conc 33.8 % (30-36); Mean Corpuscular Hemoglobin 30.7 PG (26-34); Mean Corpuscular Volume 90.9 fL (80-100); Platelet Count 234 X10^3/uL (150-400)
[2025-06-30 09:24] LABS: INR 1.1 (0.9-1.3); Prothrombin Time 12.2 SECONDS (9.4-12.5)
--- NOTE | 2025-06-30 09:24 | ED_ITS ---
HPI - Chest Pain General Chief Complaint: Chest Pain Stated Complaint: Chest pain x 1 day Time Seen by Provider: 06/30/25 09:14 Source: patient Mode of arrival: Ambulatory History of Present Illness HPI narrative: Patient here with . Complaints substernal chest tightness radiating to left neck and shoulder since 7:30 p.m. last night he was able to sleep through the night however awoke this morning with the same pain. 5/10 discomfort. No nausea sweating or shortness of breath. Patient is undergoing radiation therapy for throat cancer at [facility]. Has been doing it daily for the past 2 weeks. Denies any trouble breathing at this time. Patient sees Dr. Garcia cardiology [facility] for PAC, patient has no history of heart attack stroke or pulmonary embolism or aortic disease. No recent long travel. No immobilization. No history of blood clots in legs or lungs. Father had heart attack in his 60s. Patient last stress test was 2017. Patient is seen by head of loss prevention in December of this year. Related Data Home Medications ?Medication ?Instructions ?Recorded ?Confirmed CYANOCOBALAMIN (VITAMIN B-12) 1 tab PO DAILY ##0 03/1106/30/25 (Vitamin B-12) diclofenac sodium 1 % topical gel 1 gram topical .PRN 07/21/19 06/30/25 (Voltaren) flecainide 100 mg tablet 100 mg PO BID 11/04/2006/30 chlorthalidone 25 mg tablet 12.5 mg PO DAILY 12/04/22 06/30/25 hydralazine 100 mg tablet 100 mg PO TID 12/04/2206/30 calcium 500 mg (as citrate)-vit D3 1 tab PO QAM 06/30/25 12.5 mcg (500 unit) chewable tablet ferrous sulfate 325 mg (65 mg 325 mg PO DAILY Gastric bypass 03/10/24 06/30/25 iron) tablet losartan 100 mg tablet 100 mg PO DAILY 12/04/24 metoprolol succinate 25 mg 12.5 mg PO BID 12/04/24 tablet,extended release 24 hr oxycodone 5 mg tablet 5 mg PO TID Post back surger y 03/10/25 06/30/25 docusate sodium 100 mg capsule 100 mg PO BID 06/30/25 06/30/25 Previous Rx's ?Medication ?Instructions ?Recorded amlodipine 10 mg tablet 10 mg PO DAILY #90 tabs 07/04 04/19 Allergies Allergy/AdvReac Type Severity Reaction Status Date / Time gabapentin AdvReac Severe States Verified 06/30/25 08:51 made him homicidal Review of Systems Review of Systems Narrative: GENERAL: Negative chills, fatigue, malaise, fever, sweats. HEENT: Negative sinus pain, ear pain, sore throat RESPIRATORY: Negative dyspnea, cough CARDIOVASCULAR: Positive chest pain, negative palpitations GASTROINTESTINAL: Negative vomiting, nausea, abdominal pain : Negative dysuria, frequency, hematuria MUSCULOSKELETAL: Negative muscle or bony pain SKIN: Negative rash, skin lesions NEUROLOGIC: Negative weakness, numbness ROS Unobtainable: All systems reviewed & are unremarkable except as noted in HPI and below Patient History Medical History (Updated 06/30/25 @ 11:06 by Galen Harvey MD) Thyroid cyst Atrial tachycardia Strain of right rotator cuff capsule Chronic sinusitis Anxiety about health Hand, open wound except fingers, with tendon injury Back pain Overactive bladder Atypical chest pain Hx of sleep apnea Sciatica History of migraine headaches First degree atrioventricular block PAC (premature atrial contraction) Hyperlipidemia Hypertension Radicular low back pain Surgical History (Updated 03/10/25 @ 09:29 by Vikki Figueroa DO) S/P lumbar fusion S/P ankle ligament repair History of arthroplasty of both knees History of gastric bypass (2005) Social History household members: spouse and children Smoking Status: Never smoker alcohol intake: current Smoking Status: Smoker, status unknown alcohol intake frequency: a few times a week Exam Narrative Exam Narrative: GENERAL: in no distress, not toxic not dyspneic HEAD: Normocephalic. EYES: Pupils equal round ENT: Mucous membranes moist. NECK: Trachea midline. CARDIOVASCULAR: Regular rate and rhythm RESPIRATORY: Clear to auscultation. Breath sounds equal bilaterally. No wheezes, rales, or rhonchi. GASTROINTESTINAL: Abdomen soft, non-tender BACK: No flank tenderness. EXTREMITIES: No gross deformities. NEURO: AOx4. Clear speech SKIN: Warm and dry PSYCH: Not anxious, is cooperative Initial Vital Signs Initial Vital Signs: Vital Signs Pulse Rate 59 L 06/30/25 08:48 Pulse Oximetry 100 06/30/25 08:48 Scores HEART Score Heart Score history: Slightly Suspicious Heart Score EKG: Normal Heart Score Age: 45-64 years old Heart Score risk factors: 1-2 risk factors Heart Score troponin: < or = to normal limit Heart Score Total: 2 Course Orders Ordered: Amlodipine Besylate (Amlodipine 5 Mg Tablet) 10 mg PO DAILY [facility] Last Admin: 07/01/25 08:41 Dose: 10 mg Documented By: Admin: 06/30/25 12:12 Dose: Not Given Documented By: LEESA Chlorthalidone (Chlorthalidone 25 Mg Tablet) 12.5 mg PO DAILY [facility] Last Admin: 07/01/25 08:41 Dose: 12.5 mg Documented By: RUBA Cyanocobalamin (Cyanocobalamin (Vitamin B-12) 500 Mcg Tablet) 500 mcg PO DAILY [facility] Last Admin: 07/01/25 08:41 Dose: 500 mcg Documented By: RUBA Diazepam (Diazepam 5 Mg Tablet) 5 mg PO DAILY [facility] Last Admin: 07/01/25 08:28 Dose: Not Given Documented By: RUBA Flecainide Acetate (Flecainide 100 Mg Tablet) 100 mg PO BID [facility] Last Admin: 07/01/25 08:41 Dose: 100 mg Documented By: Admin: 06/30/25 21:00 Dose: 100 mg Documented By: AM Heparin Sodium (Porcine) (Heparin 5,000 Unit/Ml Vial) 5,000 unit SUBCUT BID [facility] Last Admin: 07/01/25 08:43 Dose: 5,000 unit Documented By: Admin: 06/30/25 21:00 Dose: 5,000 unit Documented By: AM Hydralazine HCl (Hydralazine 25 Mg Tablet) 100 mg PO TID [facility] Last Admin: 07/01/25 07:46 Dose: Not Given Documented By: Admin: 06/30/25 20:59 Dose: 100 mg Documented By: Admin: 06/30/25 16:48 Dose: 100 mg Documented By: JAE Sodium Chloride (Normal Saline 0.9%) 1,000 mls @ 100 mls/hr IV CONT [facility] Last Admin: 07/01/25 02:27 Dose: 100 mls/hr Documented By: Infusion: 07/01/25 02:27 Dose: Infused Documented By: Admin: 06/30/25 16:49 Dose: 100 mls/hr Documented By: JAE Losartan Potassium (Losartan 50 Mg Tablet) 100 mg PO DAILY [facility] Last Admin: 07/01/25 08:41 Dose: 100 mg Documented By: RUBA Metoprolol Succinate (Metoprolol Er 25 Mg Tablet) 12.5 mg PO BID [facility] Last Admin: 07/01/25 07:47 Dose: Not Given Documented By: Admin: 06/30/25 21:00 Dose: 12.5 mg Documented By: AM Morphine Sulfate (Morphine 4 Mg/Ml Inj) 2 mg IV Q2HR PRN PRN Reason: Pain, Severe (7-10) Naloxone HCl (Naloxone 0.4 Mg/Ml Vial) 0.2 mg IV Q2MIN PRN PRN Reason: Opiate Reversal Ondansetron HCl (Ondansetron 4 Mg/2 Ml Inj) 4 mg IV Q8HR PRN PRN Reason: Nausea And Vomiting Oxycodone HCl (Oxycodone Ir 5 Mg Tablet) 5 mg PO TID [facility] Last Admin: 07/01/25 08:29 Dose: Not Given Documented By: Admin: 07/01/25 00:22 Dose: Not Given Documented By: Admin: 06/30/25 15:56 Dose: 5 mg Documented By: LEESA Discontinued Medications Aspirin (Aspirin 81 Mg Chew Tab) 324 mg PO NOW ONE Stop: 06/30/25 09:02 Last Admin: 06/30/25 10:31 Dose: 324 mg Documented By: LEESA Sodium Chloride (Normal Saline 0.9%) 1,000 mls @ 1,000 mls/hr IV BOLUS ONE Stop: 06/30/25 10:23 Last Infusion: 06/30/25 19:00 Dose: Infused Documented By: Admin: 06/30/25 10:32 Dose: 1,000 mls/hr Documented By: LEESA Naloxone HCl (Naloxone 0.4 Mg/Ml Vial) 0.2 mg IV Q2MIN PRN PRN Reason: Opiate Reversal Nitroglycerin (Nitroglycerin Oint 1 Inch/Gm Oint...G.) 1 inch TOP NOW ONE Stop: 06/30/25 09:25 Last Admin: 06/30/25 10:31 Dose: 1 inch Documented By: LEESA Nitroglycerin (Nitroglycerin Oint 1 Inch/Gm Oint...G.) 0.5 inch TOP NOW ONE Stop: 06/30/25 10:31 Last Admin: 06/30/25 11:47 Dose: Not Given Documented By: CB Vital Signs Vital signs: Vital Signs - 8 hr 06/30/25 08:51 06/30/25 10:31 Temperature 98 F Pulse Rate 58 L 51 L Respiratory Rate 17 Blood Pressure 141/79 H 127/67 Pulse Oximetry 99 Oxygen Delivery Method Room Air MDM - Chest Pain Lab Data 06/30/25 09:04 06/30/25 09:04 Labs: Lab Results 06/30/25 Range/Units 09:04 WBC 6.0 (4.5-11.0) X10^3/uL RBC 4.49 L (4.5-5.9) X10^6/uL Hgb 13.8 (13.5-17.5) g/dL Hct 40.8 L (41-53) % MCV 90.9 (80-100) fL MCH 30.7 (26-34) PG MCHC 33.8 (30-36) % RDW 12.9 (11.6-14.8) % Plt Count 234 (150-400) X10^3/uL Neut % (Auto) 69.6 (50-75) % Lymph % (Auto) 8.4 L (25-40) % Ray % (Auto) 15.4 H (3-14) % Eos % (Auto) 5.9 H (2-4) % Baso % (Auto) 0.7 (0-2) % Neut # (Auto) 4200 (7759-3913) /uL Lymph # (Auto) 500 L (5130-9054) /uL Ray # (Auto) 900 (0-900) /uL Eos # (Auto) 400 (0-450) /uL Baso # (Auto) 0 (0-100) /uL PT 12.2 (9.4-12.5) SECONDS INR 1.1 (0.9-1.3) APTT 40 H (25.1-36.5) SECONDS D-Dimer 884 H (<500) ng/ml Sodium 137 (137-145) mmol/L Potassium 3.5 (3.4-5.1) mmol/L Chloride 103 (98-107) mmol/L Carbon Dioxide 28 (22-32) mmol/L BUN 19 (9-20) mg/dL Creatinine 1.02 (0.66-1.25) mg/dL Estimated GFR > 60 (>60) mL/min BUN/Creatinine Ratio 18.6 (6-22) Glucose 115 H (70-99) mg/dL Calcium 9.0 (8.4-10.2) mg/dL Magnesium 1.9 (1.6-2.3) mg/dL Total Bilirubin 0.8 (0.2-1.3) mg/dL AST 31 (17-59) IU/L ALT 16 (<50) IU/L Alkaline Phosphatase 63 (38-126) U/L Total Creatine Kinase 46 L (55-170) U/L Troponin I < 0.012 (0.01-0.034) ng/mL NT-Pro-B Natriuret Pep 251 H (<125) pg/mL Total Protein 6.9 (6.3-8.2) g/dL Albumin 4.0 (3.5-5.0) g/dL Globulin 2.9 (1.7-4.1) g/dL Albumin/Globulin Ratio 1.4 (1.0-2.8) Lipase 52 (23-300) U/L Urine Dip Bedside Urine Glucose Negative Bedside Urine Bilirubin - Negative Bedside Urine Ketone - Negative Urine Specific [place] 1.015 Bedside Urine Occult Blood - Negative Bedside Urine pH 6.0 Bedside Urine Protein - Negative Bedside Urine Urobilinogen - Negative Bedside Urine Nitrite - Negative Bedside Urine Leukocytes - Negative Esterase Imaging Data Chest x-ray: Radiologist's Impression: [address] [address] XRay Report Signed Patient: Scott Chamorro MR#: [id number] : 1960 Acct:[id number] Age/Sex: 65 / M Date of Service: 06/30/25 Loc: ED Accession Number: [id number] Procedure: XR chest 1V Ordering Provider: Galen Harvey MD PROCEDURE: XR CHEST 1V INDICATIONS: Chest Pain TECHNIQUE: One view of the chest was acquired. COMPARISON: [facility], CR, XR CHEST 1V, 04/25/2018, 17:32. FINDINGS: Surgical changes and devices: None. Lungs and pleura: Lungs are clear. No pleural effusions or pneumothorax. Mediastinum: Mediastinal contours appear normal. Heart size is normal. Bones and chest wall: No suspicious bony lesions. Overlying soft tissues appear unremarkable. IMPRESSION: No acute cardiopulmonary abnormality is seen. Dictated by: Padmini Maurice MD, PhD on 06/30/2025 at 9:36 Approved by: Padmini Maurice MD, PhD on 06/30/2025 at 9:36 CT scan - chest: Radiologist's Impression: [place] [address] CT Scan Report Signed Patient: Scott Chamorro MR#: [id number] : 1960 Acct:[id number] Age/Sex: 65 / M Date of Service: 06/30/25 Loc: ED Accession Number: [id number] Procedure: CT angio chest PE protocol Ordering Provider: Galen Harvey MD PROCEDURE: CT ANGIO CHEST PE PROTOCOL INDICATIONS: chest pain TECHNIQUE: After the administration of intravenous contrast, 2 mm thick sections acquired from the pulmonary apices to the posterior costophrenic angles. 3-dimensional maximum intensity projection (MIP) coronal and sagittal reformats were then acquired through the thorax. For radiation dose reduction, the following was used: automated exposure control, adjustment of mA and/or kV according to patient size. COMPARISON: None. FINDINGS: Image quality: Diagnostic. Pulmonary arteries: Pulmonary arteries are normal in size, and demonstrate no intraluminal filling defects to suggest central pulmonary embolism. Lower Neck: No enlarged lymph nodes. Thyroid: No thyroid nodules which require sonographic follow up, per consensus guidelines. Axillae: No enlarged lymph nodes. Chest Wall: Unremarkable. Bones: Unremarkable. Lungs and Pleura: No pneumothorax or pleural effusions. No consolidation or suspicious nodules. Heart: Heart size is normal. Severe triple-vessel coronary artery calcifications. No pericardial effusion. Thoracic Vessels: Aneurysmal dilatation of the ascending aorta, measuring 4.7 cm. Mediastinum and Yessica: No enlarged lymph nodes. Esophagus: No wall thickening. No hiatal hernia. Upper Abdomen: Visualized upper abdomen solid organs and bowel loops appear normal. Remote gastric bypass. IMPRESSION: No pulmonary embolus. No acute cardiopulmonary process. Aneurysmal dilatation of the ascending aorta, measuring 4.7 cm. Severe triple-vessel coronary artery calcifications. Dictated by: Gerry Blevins M.D. on 06/30/2025 at 10:36 Approved by: Gerry Blevins M.D. on 06/30/2025 at 10:39 MDM Narrative Medical decision making narrative: Patient here with . Complaints substernal chest tightness radiating to left neck and shoulder since 7:30 p.m. last night he was able to sleep through the night however awoke this morning with the same pain. 5/10 discomfort. No nausea sweating or shortness of breath. Patient is undergoing radiation therapy for throat cancer at [facility]. Has been doing it daily for the past 2 weeks. Denies any trouble breathing at this time. Patient sees Dr. Garcia cardiology [facility] for PAC, patient has no history of heart attack stroke or pulmonary embolism or aortic disease. No recent long travel. No immobilization. No history of blood clots in legs or lungs. Father had heart attack in his 60s. Patient last stress test was 2017. Patient is seen by head of loss prevention in December of this year. MDM After history and exam, CBC CMP EKG troponin D-dimer chest x-ray normal saline nitro paste Differential considered: Includes but not limited to STEMI non-STEMI angina pulmonary embolism aortic dissection Medical records reviewed: January 12, 2025 cardiology office visit notes. Lab Test results independently reviewed as above. Pertinent findings: WBC 6.0 hemoglobin 13.8 D-dimer 884 sodium 137 potassium 3.5 BUN 19 creatinine 1.02 troponin less than 0.012 BNP 251 Independently reviewed EKG sinus bradycardia rate 59 Imaging studies independently reviewed: Chest x-ray no acute finding, CT chest no acute finding CT chest Consultations: 11:05 a.m.. Spoke with hospitalist, Dr. Sim, will admit pt Re-evaluations: 11:10 a.m.. Reviewed results with patient and admission plan. He agrees. agrees for stress test. Discussion: Appropriate for balance of workup admission for stress test/chest pain. Diagnosis: Atypical chest pain Discharge Plan Departure Patient Disposition: Admitted as Observation Clinical Impression: Atypical chest pain Admit Date/Time: 06/30/25 11:06 Admit Provider: Mani Sim
[2025-06-30 09:27] LABS: PTT Partial Thromboplastin Tim 40 SECONDS (25.1-36.5)
[2025-06-30 09:29] LABS: Alanine Aminotransferase 16 IU/L (<50); Albumin 4.0 g/dL (3.5-5.0); Albumin Globulin Ratio 1.4 (1.0-2.8); Alkaline Phosphatase 63 U/L (38-126); Blood Urea Nitrogen 19 mg/dL (9-20); Calcium 9.0 mg/dL (8.4-10.2); Carbon Dioxide 28 mmol/L (22-32); Chloride 103 mmol/L (98-107); Creatine Kinase 46 U/L (55-170); Estimated Glomerular Filt Rate > 60 mL/min (>60); Globulin 2.9 g/dL (1.7-4.1); Glucose 115 mg/dL (70-99); HEMOLYSIS < 15 (0-50); Lipase 52 U/L (23-300); Magnesium 1.9 mg/dL (1.6-2.3); Potassium 3.5 mmol/L (3.4-5.1); Sodium 137 mmol/L (137-145); Total Protein 6.9 g/dL (6.3-8.2)
[2025-06-30 09:40] LABS: NT-proBNP (BNP-Adult 18+) 251 pg/mL (<125); Troponin I < 0.012 ng/mL (0.01-0.034)
--- NOTE | 2025-06-30 10:18 | DI.CT.S_ITS ---
PROCEDURE: CT ANGIO CHEST PE PROTOCOL INDICATIONS: chest pain TECHNIQUE: After the administration of intravenous contrast, 2 mm thick sections acquired from the pulmonary apices to the posterior costophrenic angles. 3-dimensional maximum intensity projection (MIP) coronal and sagittal reformats were then acquired through the thorax. For radiation dose reduction, the following was used: automated exposure control, adjustment of mA and/or kV according to patient size. COMPARISON: None. FINDINGS: Image quality: Diagnostic. Pulmonary arteries: Pulmonary arteries are normal in size, and demonstrate no intraluminal filling defects to suggest central pulmonary embolism. Lower Neck: No enlarged lymph nodes. Thyroid: No thyroid nodules which require sonographic follow up, per consensus guidelines. Axillae: No enlarged lymph nodes. Chest Wall: Unremarkable. Bones: Unremarkable. Lungs and Pleura: No pneumothorax or pleural effusions. No consolidation or suspicious nodules. Heart: Heart size is normal. Severe triple-vessel coronary artery calcifications. No pericardial effusion. Thoracic Vessels: Aneurysmal dilatation of the ascending aorta, measuring 4.7 cm. Mediastinum and Yessica: No enlarged lymph nodes. Esophagus: No wall thickening. No hiatal hernia. Upper Abdomen: Visualized upper abdomen solid organs and bowel loops appear normal. Remote gastric bypass. IMPRESSION: No pulmonary embolus. No acute cardiopulmonary process. Aneurysmal dilatation of the ascending aorta, measuring 4.7 cm. Severe triple-vessel coronary artery calcifications. Dictated by: Gerry Blevins M.D. on 06/30/2025 at 10:36 Approved by: Gerry Blevins M.D. on 06/30/2025 at 10:39
[2025-06-30] MEDS: NITROGLYCERIN OINT 1 INCH/GM OINT...G. TOP (10:31)
[2025-06-30] MEDS: ASPIRIN 81 MG CHEW TAB 324 MG PO (10:31)
[2025-06-30] MEDS: SODIUM CHLORIDE 0.9% 1,000 ML 1000 ML IV (10:32)
[2025-06-30 12:23] LABS: Troponin I < 0.012 ng/mL (0.01-0.034)
--- NOTE | 2025-06-30 14:43 | PC.NURSE ---
Pt resting in bed with family at bedside. No needs at this time. Updated on time frame.
[2025-06-30] MEDS: SODIUM CHLORIDE 0.9% 1,000 ML 100 ML IV (16:49)
--- NOTE | 2025-06-30 18:48 | PM.HP.1 ---
History of Present Illness History of Present Illness Date Patient Seen: 06/30/25 Chief complaint: Chest pain x 1 day Narrative: Chief complaint: Atypical chest pain for 1 day no previous known history of coronary disease History of present illness: 06/30 65-year-old male with chest tightness radiating to the left neck and shoulder since 7:30 p.m. the night prior able to sleep through it but awoke with the same pain no nausea sweating diaphoresis. Patient is undergoing radiation therapy for throat cancer [facility] sees Dr. Garcia and is on flecainide and metoprolol for symptomatic PACs Workup in the emergency room EKG shows a normal sinus rhythm with voltage criteria for LVH nonspecific ST and T-wave changes in V2 and 3 3 troponin is negative BNP slightly out of reference range 251 CT angiography of the chest negative for PE or dissection incidental finding of aneurysmal dilation of the ascending aorta measuring 4.7 cm Review of systems: No dyspnea on exertion No fevers chills rigors No nausea vomiting diarrhea The paresthesia paresis Physical examination. Elderly male in no acute distress HEENT unremarkable Heart rate and rhythm regular no murmurs Lungs clear to auscultation Extremities no edema Moves all extremities Assessment and plan: Atypical chest pain: Stress nuclear medicine may convert to pharmacologic stress nuclear medicine if back and knees stone allow adequate exercise Serial troponins overnight Continue home medications Symptomatic PACs: Continue home cardiac medications DVT prophylaxis: Not indicated patient is ambulatory Code status: Full code Disposition: Observation discharge if stress test is negative Time based billin minutes were involved in the management of this patient including [id number] evaluation physical examination discussion with emergency provider review of objective laboratory and imaging findings and EKG [facility] Medical History (Updated 06/30/25 @ 11:06 by Galen Harvey MD) Thyroid cyst Atrial tachycardia Strain of right rotator cuff capsule Chronic sinusitis Anxiety about health Hand, open wound except fingers, with tendon injury Back pain Overactive bladder Atypical chest pain Hx of sleep apnea Sciatica History of migraine headaches First degree atrioventricular block PAC (premature atrial contraction) Hyperlipidemia Hypertension Radicular low back pain Surgical History (Updated 03/10/25 @ 09:29 by Vikki Figueroa DO) S/P lumbar fusion S/P ankle ligament repair History of arthroplasty of both knees History of gastric bypass (2005) Social History household members: spouse and children Smoking Status: Never smoker alcohol intake: current Meds Home Medications and Allergies Home Medications ?Medication ?Instructions ?Recorded ?Confirmed ?Type CYANOCOBALAMIN (VITAMIN B-12) 1 tab PO DAILY ##0 03/11/12 06/30/25 History (Vitamin B-12) amlodipine 10 mg tablet 10 mg PO DAILY #90 tabs 07/30/18 06/30/25 Rx diclofenac sodium 1 % topical gel 1 gram topical .PRN 07/21/19 06/30/25 History (Voltaren) flecainide 100 mg tablet 100 mg PO BID 11/04/20 06/30/25 History chlorthalidone 25 mg tablet 12.5 mg PO DAILY 12/04/22 06/30/25 History hydralazine 100 mg tablet 100 mg PO TID 12/04/22 06/30/25 History calcium 500 mg (as citrate)-vit D3 1 tab PO QAM 03/10/24 06/30/25 History 12.5 mcg (500 unit) chewable tablet ferrous sulfate 325 mg (65 mg 325 mg PO DAILY Gastric bypass 03/10/24 06/30/25 History iron) tablet losartan 100 mg tablet 100 mg PO DAILY 12/04/24 06/30/25 History metoprolol succinate 25 mg 12.5 mg PO BID 12/04/24 06/30/25 History tablet,extended release 24 hr oxycodone 5 mg tablet 5 mg PO TID Post back surgery 03/10/25 06/30/25 History docusate sodium 100 mg capsule 100 mg PO BID 06/30/25 06/30/25 History Allergies Allergy/AdvReac Type Severity Reaction Status Date / Time gabapentin AdvReac Severe States Verified 06/30/25 08:51 made him homicidal Exam Vital Signs (past 8 hours): - 06/30/25 11:43 06/30/25 11:45 06/30/25 11:45 Pulse Rate 51 L Respiratory Rate 17 Blood Pressure 139/70 Pulse Oximetry 77 L 100 06/30/25 12:00 06/30/25 12:00 06/30/25 16:48 Pulse Rate 51 L 52 L Respiratory Rate 18 Blood Pressure 131/71 140/77 Pulse Oximetry 99 Oxygen Delivery Method Room Air Objective Labs 06/30/25 09:04 06/30/25 09:04 Labs: Laboratory Results - last 24 hr 06/30/25 06/30/25 09:04 11:52 WBC 6.0 RBC 4.49 L Hgb 13.8 Hct 40.8 L MCV 90.9 MCH 30.7 MCHC 33.8 RDW 12.9 Plt Count 234 Neut % (Auto) 69.6 Lymph % (Auto) 8.4 L Arroyo % (Auto) 15.4 H Eos % (Auto) 5.9 H Baso % (Auto) 0.7 Neut # (Auto) 4200 Lymph # (Auto) 500 L Arroyo # (Auto) 900 Eos # (Auto) 400 Baso # (Auto) 0 PT 12.2 INR 1.1 APTT 40 H D-Dimer 884 H Sodium 137 Potassium 3.5 Chloride 103 Carbon Dioxide 28 BUN 19 Creatinine 1.02 Estimated GFR > 60 BUN/Creatinine Ratio 18.6 Glucose 115 H Calcium 9.0 Magnesium 1.9 Total Bilirubin 0.8 AST 31 ALT 16 Alkaline Phosphatase 63 Total Creatine Kinase 46 L Troponin I < 0.012 < 0.012 NT-Pro-B Natriuret Pep 251 H Total Protein 6.9 Albumin 4.0 Globulin 2.9 Albumin/Globulin Ratio 1.4 Lipase 52 Assessment & Plan Time-Based Coding :: [TOTAL MINUTES] spent with patient and on the chart (including review of chart, obtaining history, exam, reviewing outside data, placing orders, documenting exam and treatment plan, and counseling patient) on [DATE]. Quality VTE Deep Vein Thrombosis/Pulmonary Embolism Present on Admission: No
[2025-06-30 20:39] LABS: Troponin I < 0.012 ng/mL (0.01-0.034)
[2025-06-30] MEDS: METOPROLOL ER 25 MG TABLET 12.5 MG PO (21:00)
[2025-06-30] MEDS: HEPARIN 5,000 UNIT/ML VIAL 5000 UNIT SUBCUT (21:00)
[2025-06-30] MEDS: FLECAINIDE 100 MG TABLET PO (21:00)
[2025-07-01] MEDS: SODIUM CHLORIDE 0.9% 1,000 ML 100 ML IV (02:27)
[2025-07-01 02:42] LABS: Troponin I 0.015 ng/mL (0.01-0.034)
[2025-07-01 07:44] VITALS: BP 128/73; PULSE 52; RESP 17; TEMP 36.2; O2SAT 97
[2025-07-01] MEDS: LOSARTAN 50 MG TABLET 100 MG PO (08:41)
[2025-07-01] MEDS: FLECAINIDE 100 MG TABLET PO (08:41)
[2025-07-01] MEDS: CHLORTHALIDONE 25 MG TABLET 12.5 MG PO (08:41)
[2025-07-01] MEDS: CYANOCOBALAMIN (VITAMIN B-12) 500 MCG TABLET PO (08:41)
[2025-07-01] MEDS: HEPARIN 5,000 UNIT/ML VIAL 5000 UNIT SUBCUT (08:43)
[2025-07-01 13:00] VITALS: BP 140/78; PULSE 58; RESP 16; TEMP 36.2; O2SAT 96
--- NOTE | 2025-07-01 13:52 | CM.DANOTE ---
Patient is a 65 yo male who was admitted OBS Status on 06/30/25 for Chest Pain r/o. Pt has [employer] PPO for insurance and his PCP is Dr. Vikki Figueroa at [facility]. EMR was reviewed. Per MD, pt with hx of current radiation for throat CA and also established with Dr. Garcia Cardiology at [facility]. Pt admitted after chest pain and to have Nuc Stress Test today and pending results likely can d/c home this evening. Patient lives in [place] with his and both are active and independent at baseline. Pt works and drives and no hx of admissions at [facility]. Pt does not use DME for ambulation. Pt hopeful to d/c home this evening and currently does not anticipate any further needs for discharge at this time. Plan: SW to follow for stress test results towards plan of home this evening and any further identified discharge planning needs. KACI Neumann Discharge Planning/Care Management CM Discharge Assessment Start: 06/30/25 13:51 Freq: Status: Active Protocol: Document 07/01/25 13:50 BF (Rec: 07/01/25 13:52 BF [id number]) Discharge Planning Assessment Assigned Discharge KACI Thompson Manager Digital Ad Operations Provider Dr. Vikki Figueroa Insurance [employer] DPOA/Assigned spouse Shanique Designee Name Contact Information [phone] Advance Directives? Yes Advance Directives No on File History Provided By Patient,Medical Record Has Patient been No admitted in last 30 days? Prior Living House Arrangements Household Members spouse,children Type of Drives own vehicle transporation used prior to admit Independent with ADL Yes 's Is patient alert and Yes oriented? Caregiver for No Another Barriers to No Discharge Discharge Plan Home Transportation Spouse will transport patient home. Arrangement Referrals Initiated None needed Whiteboard Updated Yes in Patient Room with name and ext. # of Automotive Service Writer Review Status In Process Please Provide Date 07/01/25 Initial DC Assessment Was Performed Next Review Type Continued Stay Review
--- NOTE | 2025-07-01 14:59 | DI.NM.S_ITS ---
DATE OF SERVICE: 07/01/2025 NUCLEAR CARDIOLOGY MYOCARDIAL PERFUSION STUDY PROCEDURE: Exercise treadmill stress and rest myocardial perfusion imaging study with gating to assess ejection fraction and regional wall motion. ORDERING PROVIDER: Mani Sim M.D. INDICATIONS: The patient is a 65-year-old male admitted with atypical, persistent chest discomfort but normal troponins. CARDIAC STRESS: The patient was able to exercise for 9 minutes 7 seconds on a standard Lloyd protocol suggesting very good exercise capacity with an MALDONADO of -13%, achieving 10.1 METS. He had a slightly blunted heart rate response to exercise, achieving a maximum heart rate of 129 bpm (83% of his predicted maximum), but a normal blood pressure response. He had mild right-sided chest discomfort at rest that increased slightly with stress but improved at peak exercise. He had moderate dyspnea, but no anginal pain. His resting ECG showed sinus rhythm with normal ST segments. With stress, there were no significant ST segement shifts. He had rare isolated PACs and PVCs but no complex ectopy. At 8 minutes 50 seconds of exercise at a heart rate of 128 bpm, 27.5 millicuries of technetium-99m Myoview was injected and he was imaged 15 minutes later using a gated SPECT acquisition protocol. Earlier in the day while at rest, he had been injected with 10.5 millicuries of technetium- 99m Myoview and was imaged 20 minutes later, again using a gated SPECT acquisition protocol. FINDINGS: 1. Raw data: There is fairly good myocardial tracer uptake. The lung/heart ratio is at the upper limits of normal at 0.40 but visually is not apparent. The TID ratio was normal at 0.83. 2. Quantitated gated SPECT: Post-stress ejection fraction is 69% without any focal wall motion abnormality and specifically the inferior wall has normal contractility. The resting ejection fraction is 64% with a similar contraction pattern. Left ventricular volumes are significantly increased with a resting end-diastolic volume of 213 mL. 3. Myocardial perfusion imaging: Post-stress supine images show a fairly normal myocardial perfusion pattern except for a subtle defect in the mid inferior wall, extending into the distal inferolateral wall in a pattern most consistent with diaphragmatic attenuation, supported by its resolution on the prone images, revealing a more normal, uniform pattern of perfusion. The resting images show an identical perfusion pattern to that of the post-stress supine images without any areas of improvement. IMPRESSION: 1. Normal myocardial perfusion study for ischemia. 2. Mild, fixed mid inferior and inferolateral defect that resolves on prone imaging, most consistent with diaphragmatic attenuation artifact. There is no compelling evidence for any myocardial ischemia or previous myocardial infarction although sensitivity is slightly reduced because of a mildly blunted heart rate response to exercise. 3. Significantly increased left ventricular volumes but normal systolic function without any focal wall motion abnormality. 4. Very good exercise capacity with nonanginal chest discomfort at rest that increased slightly with stress but improved by peak exercise and without significant ST-segment shifts and only rare isolated PACs and PVCs but no complex ectopy. Ashtyn Scott - GRACE/rochelle/CIARA doc#: [id number]/job#: [id number] dd: 07/01/2025 13:12:00 dt: 07/01/2025 14:45:00 DICTATING MD/COPIES TO: Tyler Maldonado MD; Mani Sim M.D. COPIES MNE: MUNIRA;
--- NOTE | 2025-07-01 15:24 | P.DS_ITS ---
History of Present Illness History of Present Illness Date Patient Seen: 07/01/25 Chief complaint: Chest pain x 1 day Narrative: Chief complaint: Atypical chest pain for 1 day no previous known history of coronary disease History of present illness: 06/30 65-year-old male with chest tightness radiating to the left neck and shoulder since 7:30 p.m. the night prior able to sleep through it but awoke with the same pain no nausea sweating diaphoresis. Patient is undergoing radiation therapy for throat cancer [facility] sees Dr. Garcia and is on flecainide and metoprolol for symptomatic PACs Workup in the emergency room EKG shows a normal sinus rhythm with voltage criteria for LVH nonspecific ST and T-wave changes in V2 and 3 3 troponin is negative BNP slightly out of reference range 251 CT angiography of the chest negative for PE or dissection incidental finding of aneurysmal dilation of the ascending aorta measuring 4.7 cm Hospital course: 07/01: No chest pain or events overnight: Underwent stress test today results are as below: MPRESSION: 1. Normal myocardial perfusion study for ischemia. 2. Mild, fixed mid inferior and inferolateral defect that resolves on prone imaging, most consistent with diaphragmatic attenuation artifact. There is no compelling evidence for any myocardial ischemia or previous myocardial infarction. 3. Significantly increased left ventricular volumes, but normal systolic function without any focal wall motion abnormality. 4. Very good exercise capacity with nonanginal chest discomfort at rest that increased slightly with stress but improved by peak exercise. There were no significant ST-segment shifts and only rare isolated PACs and PVCs without other complex ectopy. Review of systems: No dyspnea on exertion No fevers chills rigors No nausea vomiting diarrhea The paresthesia paresis Physical examination. Elderly male in no acute distress HEENT unremarkable Heart rate and rhythm regular no murmurs Lungs clear to auscultation Extremities no edema Moves all extremities Assessment and plan: Atypical chest pain: * Stress nuclear medicine exercise test negative for ischemia Symptomatic PACs: * Continue home cardiac medications DVT prophylaxis: * Not indicated patient is ambulatory Code status: * Full code Disposition: * Discharge to home Time based billing: * 35 minutes were involved in the management of this patient including [id number] evaluation physical examination discussion with emergency provider review of objective laboratory and imaging findings and EKG Discharge Providers Provider Date of admission: 06/30/25 11:06 Discharge Date: 07/01/25 Primary care physician: Vikki Figueroa DO Discharge provider: Mani Sim MD Exam Vital Signs (past 8 hours): - 07/01/25 07:44 07/01/25 13:00 Temperature 97.1 F L 97.1 F L Pulse Rate 52 L 58 L Respiratory Rate 17 16 Blood Pressure 128/73 140/78 Pulse Oximetry 97 96 Oxygen Flow Rate 0 0 Oxygen Delivery Method Room Air Oxygen Flow Rate 0 Objective Labs 06/30/25 09:04 06/30/25 09:04 Labs: Laboratory Results - last 24 hr 06/30/25 07/01/25 19:55 02:10 Troponin I < 0.012 0.015 PFSH Medical History (Updated 06/30/25 @ 11:06 by Galen Harvey MD) Thyroid cyst Atrial tachycardia Strain of right rotator cuff capsule Chronic sinusitis Anxiety about health Hand, open wound except fingers, with tendon injury Back pain Overactive bladder Atypical chest pain Hx of sleep apnea Sciatica History of migraine headaches First degree atrioventricular block PAC (premature atrial contraction) Hyperlipidemia Hypertension Radicular low back pain Surgical History (Updated 03/10/25 @ 09:29 by Vikki Figueroa DO) S/P lumbar fusion S/P ankle ligament repair History of arthroplasty of both knees History of gastric bypass (2005) Social History household members: spouse and children Smoking Status: Never smoker alcohol intake: current Discharge Plan Discharge Plan Patient Disposition: Home Discharge orders & Medications Prescriptions: Continued CYANOCOBALAMIN (VITAMIN B-12) (Vitamin B-12) 1 tab PO DAILY Qty: 0 amlodipine 10 mg tablet 10 mg PO DAILY Qty: 90 1RF diclofenac sodium [Voltaren] 1 % gel 1 gram TOP .PRN hydralazine 100 mg tablet 100 mg PO TID chlorthalidone 25 mg tablet 12.5 mg PO DAILY flecainide 100 mg tablet 100 mg PO BID ferrous sulfate 325 mg (65 mg iron) tablet 325 mg PO DAILY calcium citrate-vitamin D3 500 mg-12.5 mcg (500 unit) tablet,chewable 1 tab PO QAM oxycodone 5 mg tablet 5 mg PO TID losartan 100 mg tablet 100 mg PO DAILY metoprolol succinate 25 mg tablet extended release 24 hr 12.5 mg PO BID docusate sodium 100 mg capsule 100 mg PO BID Follow up/Referrals: Vikki Figueroa DO [Primary Care Provider, Family Practice] Visit Report/Discharge Packet Instructions: Cardiac Stress Test, DI for Cardiac Stress Test Stand Alone Forms: Patient Portal/API, Stroke Signs & Symptoms Discharge Data Primary Care Provider: Vikki Figueroa Attending Provider: Mani Sim Admit Date/Time: 06/30/25 11:06 Quality VTE Deep Vein Thrombosis/Pulmonary Embolism Present on Admission: No
--- NOTE | 2025-07-01 17:08 | PC.NURSE ---
Day shift: Paperwork signed and all questions answered. Pt has all personal belongings. No new MD scripts. Left unit at approx 1545. He wanted to walk to car. Walked there by this policy writer typist.
== END 2025-07-01 15:45 | disposition home or self-care (01) ==
LOC: ED 11:06 → AC 11:07
PROVIDERS: Admitting Provider Internal Medicine; Emergency Provider Emergency Medicine; PCP Family Medicine; Referring Provider Emergency Medicine; Visit Provider Internal Medicine
DX: R07.89 Other chest pain (principal); Z82.49 Family history of ischemic heart disease and other diseases of the circulatory system; C14.0 Malignant neoplasm of pharynx, unspecified; I71.21 Aneurysm of the ascending aorta, without rupture
CPT/HCPCS: 36415; 71045; 71275; 78452; 80053; 81003; 82550; 83690; 83735; 83880; 84484; 85025; 85379; 85610; 85730; 93005; 93010; 93017; 96360; 96361; 96372; 99284; G0378; A9502; J1644; J7030; Q9967